=== PATIENT | male | born 1955 | race Caucasian/White ===

== ENCOUNTER 2021-07-24 09:45 | Outpatient (CLI) | payer MEDICARE, OTHER, SELFPAY ==
[2021-07-24 12:28] LABS: Erythrocyte Sedimentation Rate 10 mm/hr (0-20)
[2021-07-24 12:30] LABS: Absolute Lymphocyte Count 6.03 X10^3/uL (0.83-4.51); Basophil# 0.04 X10^3/uL; Basophil% 0.4 % (0-1); Eosinophil# 0.18 X10^3/uL; Eosinophils% 1.6 % (0-5); Hematocrit 45.6 % (40-54); Hemoglobin 15.8 g/dL (13.0-16.5); Lymphocyte # 6.03 X10^3/ul (0.83-4.51); Lymphocyte % 55.2 % (19-41); Mean Corp Hgb Conc 34.6 g/dL (32-36); Mean Corpuscular Hgb 32.8 pg (27.0-32.0); Mean Corpuscular Volume 94.8 fL (80-94); Mean Platelet Vol. 11.3 fl (6.2-12.0); Monocyte% 6.4 % (0-10); NRBC Flagged by Analyzer 0 % (0-5); Neutrophil # 3.95 X10^3/uL (2.7-7.7); Neutrophil % 36.1 % (47-70); POSITIVE DIFFERENTIAL YES; POSITIVE MORPHOLOGY YES; Platelet Count 176 K/mm3 (150-450); RBC Distribution Width CV 13.5 % (11.6-14.6); Red Blood Count 4.81 M/mm3 (4.6-6.2); White Blood Count 10.9 K/mm3 (4.4-11.0)
[2021-07-24 12:33] LABS: Differential Indicated SCAN CRITERIA MET
[2021-07-24 12:48] LABS: AST(SGOT) 22 U/L (15-37); Alanine Aminotransfer ALT/SGPT 41 U/L (16-61); Albumin, Serum 3.9 g/dL (3.2-5.0); Alkaline Phosphatase 83 U/L (45-117); Anion Gap 6 (5-15); BUN 18 mg/dL (7-18); BUN/Creat Ratio 15.4 RATIO (10-20); Calcium,Total 9.3 mg/dL (8.5-10.1); Chloride 109 mmol/L (98-107); Creatinine, Serum 1.17 mg/dL (0.70-1.30); EST Glomerular Filtration Rate 66 mL/min (>60); Est Glom Filt Rate - Afr Amer 80 mL/min (>60); Glucose 93 mg/dL (74-106); Magnesium 1.9 mg/dL (1.6-2.6); Potassium 3.8 mmol/L (3.5-5.1); Protein, Total 7.9 g/dL (6.4-8.2); Sodium Level 140 mmol/L (136-145)
== END 2021-07-24 23:59 | disposition home or self-care (01) ==
LOC: MFPLAB 09:50
PROVIDERS: PCP Family Medicine; Referring Provider Family Medicine; Visit Provider Family Medicine
DX: R79.89 Other specified abnormal findings of blood chemistry (principal); K51.90 Ulcerative colitis, unspecified, without complications
CPT/HCPCS: 36415; 80053; 83735; 84403; 85025; 85652

== ENCOUNTER 2021-08-30 08:00 | Outpatient (RCR) | payer MEDICARE, OTHER, SELFPAY ==
--- NOTE | 2021-07-31 14:24 | HP.PTEVAL_ITS ---
Patient's Visit Information DULCE DODSON is a 66 year old M referred to Physical Therapy by Dr. King Garnett MD with a diagnosis of R SHLD PAIN-BRACHIALIS AND SUBSCAP & R LATERAL FOOT PAIN (DISTAL ACHILLES). Date of Evaluation: 07/31/21 Physical Therapist: Shannan Jackson, PT, Cert MDT - Visit Plan Frequency: 2-3x /Week Duration: 4-6 Weeks Plan: RIGHT SHLD AND FOOT US. RIGHT SHLD AND ANKLE ROM, STRETCHING AND STRENGTHENING TO HELP MEET SET GOALS. HEP INSTRUCTION. - Subjective Work/Leisure: RETIRED. 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 Disability: NO. Present symptoms: RIGHT SHLD PAIN. RIGHT BICEPS TENDERNESS. NO NUMBNESS OR TINGLING. OCCASSIONAL RIGHT NECK PAIN. R PLANTAR LATERAL FOOT PAIN INTO HEEL AND ACHILLES. NO NUMBNESS OR TINGLING IN FOOT EITHER. Present since: SHLD - ABOUT 5 MONTHS AGO, RIGHT FOOT - 2 MONTHS AGO. Pain Scale: SHLD: Worst - 4/10 Least - 0/10, FOOT WORST 7/10, LEAST 0/10. Currently: SHLD: 05/07, R FOOT: 1/10. Commenced as a result of: R SHLD - POSSIBLY FROM HITTING HEAVY BAD WHEN STARTED BACK UP WITH KARATE. R FOOT PAIN - WALKING DOG, STARTED RUNNING AND BROUGHT FOOT DOWN HARD. Worse: MOVING SHLD CERTAIN WAYS, CERTAIN WAYS SLEEPING, RAISING R ARM OUT TO THE SIDE, ALSO DEMO'S ER OF R SHLD HURTING. FOOT - WEIGHT BEARING AFTER SITTING, WALKING - SOMETIMES ITS WORSE THAN OTHERS. Better: R SHLD - NO USING IT. FOOT - SUPPORT ARCHES IN SHOES, STRETCHING SEEMS TO HELP. Disturbed sleep: YES. Previous history/Previous treatment: UNREMARKABLE. Gait: SOMETIMES THE RIGHT FOOT PAIN GETS SO BAD HE CAN BARELY WALK. Accidents: NO. Unexplained weight loss: NO. Imaging: NO IMAGING OF FOOT OR SHLD. PMH/Recent major surgery: ENLARGED PROSTATE. ULCERATIVE COLITIS, C6 NERVE PERM. DAMGAGE. OTHER: PATIENT REPORTS HE HAS GYM EQUIPMENT AT HOME. - Objective THIS PATIENT AMBULATES INDEP'LY INTO PT WITH A MILD LIMP ON THE RIGHT LE. HE REPORTS HE IS HERE FOR HIS RIGHT SHLD PAIN AND HIS RIGHT FOOT PAIN. ENRIQUE UE AND RIGHT LE LIGHT TOUCH SENSATION IS GROSSLY INTACT. CERVICAL MVMT LOSS: FLEX - NIL, PRO - NIL, EXT - MOD, RETRACTION - DAMION, RIGHT ROT MIN, L ROT MIN, ENRIQUE SB - DAMION. PATIENT DENIES PAIN WITH CERVICAL ROM TESTING. AROM OF RIGHT SHLD IN SIT TING: FLEX AND ABD WFL BUT INCREASED PAIN WITH TESTING. SUPINE R SHLD ROM TESTING: FLEX 155 DEG, ABD 100 DEG, IR 65 DEG, ER 60 DEG (80 DEG ABD WITH IR/ER TESTING). PATIENT C/O RIGHT SHLD PAIN WITH SUPINE ROM TESTING ALL PLANES. 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 RIGHT ELBOW STRENGTH IS 5/5. R SHLD STRENGTH: FLEX 4/5, ABD 3-/5, IR 4/5, ER 3-/5. PATIENT HAS TENDERNESS WITH PALPATION OF THE RIGHT LATERAL BOARDER OF FOOT AND ACHILLES INSERTION. THERE IS NO PALPABLE EDEMA. RIGHT ANKLE ROM AND STRENGTH IS WFL. HE DEMO'S INCREASED LIMPING ON THE RIGHT LE INITIATING GAIT AFTER SITTING. HE DEMO'S APPROPRIATE RIGHT GASTROC, SOLEUS AND TOE EXTENSION STRETCHING AND HE REPORTS THIS HELPS. - Balance/Special Test Scores Lower Extremity Functional Score: 56 Quick DASH Score: 25.0000 - Goals Goal 1:: DECREASE C/O RIGHT SHLD PAIN TO EASE ADLS. Goal Time Frame: 4-6 Weeks Goal 2:: DECREASE C/O R FOOT PAIN TO EASE ADL'S Goal Time Frame: 4-6 Weeks Goal 3:: PATIENT WILL DEMONSTRATE IMPROVED RIGHT SHLD ROM TO RETURN TO PRIOR LEVEL OF FUNCTION Goal Time Frame: 4-6 Weeks Goal 4:: PATIENT WILL DEMONSTRATE IMPROVED R SHLD STRENGTH TO 5/5 TO EASE ADLS AND RETURN TO WEIGHT LIFTING. Goal Time Frame: 4-6 Weeks Goal 5:: PATIENT WILL BE INDEP WITH HEP'S FOR RIGHT SHLD AND RIGHT FOOT FOR CONTINUED IMPROVEMENT ONCE FORMAL PHYSICAL THERAPY CONCLUDES. Goal Time Frame: 4-6 Weeks - Anticipated Interventions Patient/Client Instruction: Educate patient on: Condition, Plan of Care, Risk Factors For the Purpose of:: To improve self management Therapeutic Exercise to Include: Strength training, Body mechanics, Postural training, Flexibilty training, Gait and locomotor training, Neuromotor development, Scapular Strength/Stabilization For the Purpose of:: To decrease pain, To increase ROM, To improve muscle performance and motor function, To improve ability to perform ADL's, To increase tolerance to activity/condition/position, To improve ability of physical actions for home/community/work/leisure, To improve gait and locomotor functions Cryotherapy (ice pack, ice massage): Yes Thermo therapy (hot pack): Yes Ultrasound (thermal/non thermal): Yes For the Purpose of:: To decrease pain, To improve nutrient delivery to tissue Thank you for the opportunity to evaluate your patient. For Medicare and Medicare HMO plans, please review the plan of care and approve it. It will need to be FAXED BACK to us at [phone] for Medicare purposes. For Medicare only, by signing this I certify the plan of care. Please let me know if there are questions or concerns regarding this plan of care. Physician Signature: Date:
--- NOTE | 2021-08-30 09:01 | HP.PTDCSUM_ITS ---
It has been my pleasure to treat DULCE DODSON referred by Dr. King Garnett MD, with the diagnosis of R SHLD PAIN-BRACHIALIS AND SUBSCAP & R LATERAL FOOT PAIN (DISTAL ACHILLES) for a total of 8 visit(s). Discharge Date: 08/30/21 Please see the following information for a summary of their discharge status. Subjective: PATIENT REPORTS HIS SHLD ROM IS BETTER AND IT HURTS LESS. I CAN TELL THE EX'S ARE HELPING. SHLD DOES STILL HURT THOUGH WITH CERTAIN MVMTS AND AT NIGHT. I DON'T SLEEP WELL. IT IS MUCH MUCH BETTER THOUGH NO QUESTION ABOUT IT. STILL DIFFICULT TO WALK ON FOOT AFTER SITTING BUT WITH TIME THE PAIN GOES AWAY. I'M VERY HAPPY WITH THE PROGRESS. PATIENT REPORTS HE HAS A COMPLETE HOME GYM AND HE CAN DO THE EX'S ON HIS OWN NOW. % Improvement: 65 Objective/Function: PATIENT WAS SEEN TODAY FOR RE-ASSESSMENT OF PROGRESS TOWARD THE SET PT GOALS AND THE NEED FOR FURTHER PHYSICAL THERAPY VS READINESS FOR DISCHARGE. HE HAS MADE GOOD PROGRESS TOWARD ALL GOALS FOR HIS RIGHT SHLD AND RIGHT FOOT. HE IS INDEP WITH A [facility] AND THE HOPE IS THAT HE WILL CONTINUE TO IMPROVE WITH TIME. HE IS STILL GETTING R SHLD IMPINGEMENT WITH OVER HEAD REACHING AND HE CONTINUES TO HAVE SIGNIFICANT R SHLD ER WEAKNESS. UPON EXAM TODAY: THIS PATIENT AMBULATES INDEP'LY INTO PT WITHOUT A LIMP ON THE RIGHT LE TODAY LIKE HE DID AT [facility]. ROM: SUPINE R SHLD ROM TESTING: FLEX [id number] DEG, ABD FULL, IR 65 DEG, ER 90 DEG (90 DEG ABD WITH IR/ER TESTING). PATIENT C/O RIGHT SHLD PAIN WITH SUPINE ROM TESTING ALL PLANES AT THE END OF THE AVAILABLE ROM BUT ROM HAS IMPROVED SIGNIFICANTLY INTO ABD AND ER. 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 ELBOW STRENGTH IS 5/5. R SHLD STRENGTH: FLEX 4/5, ABD 4-/5, IR 4/5, ER 3-/5. THERE IS NO PALPABLE EDEMA. HE DOES NOT DEMO INCREASED LIMPING ON THE RIGHT LE INITIATING GAIT AFTER SITTING TODAY AND HE REPORTS IT TAKES SITTING LONGER TO BRING ON THE LIMP TYPICALLY. FURTHER INSTRUCTION GIVEN TODAY IN PROPER POSTURE CONTROL. PATIENT IS APPROPRIATE FOR DISCHARGE TO [facility] AND FOLLOW UP WITH DR. GARNETT NEEDED. PATIENT IS AGREEABLE. Goal 1:: DECREASE C/O RIGHT SHLD PAIN TO EASE ADLS. Goal Progress: Goal Met Goal 2:: DECREASE C/O R FOOT PAIN TO EASE ADL'S Goal Progress: Goal Met Goal 3:: PATIENT WILL DEMONSTRATE IMPROVED RIGHT SHLD ROM TO RETURN TO PRIOR LEVEL OF FUNCTION Goal 4:: PATIENT WILL DEMONSTRATE IMPROVED R SHLD STRENGTH TO 5/5 TO EASE ADLS AND RETURN TO WEIGHT LIFTING. Goal Progress: Progressing Goal 5:: PATIENT WILL BE INDEP WITH HEP'S FOR RIGHT SHLD AND RIGHT FOOT FOR CONTINUED IMPROVEMENT ONCE FORMAL PHYSICAL THERAPY CONCLUDES. Goal Progress: Goal Met Plan: D/C TO HEP. If there are questions or concerns regarding this patient's physical therapy, please feel free to call me at [phone]. Thank you for the referral of this patient. Sincerely, Shannan Jackson, PT, Cert MDT Balance/Gait/Functional tests - Balance/Special Test Scores Lower Extremity Functional Score: 58 Quick DASH Score: 25.0000
== END 2021-08-30 09:27 | disposition home or self-care (01) ==
LOC: PT 08:00
PROVIDERS: PCP Family Medicine; Referring Provider Family Medicine; Visit Provider Family Medicine
DX: M25.511 Pain in right shoulder (principal); M79.671 Pain in right foot
CPT/HCPCS: 97035; 97110; 97162; 97164

== ENCOUNTER → 2021-09-21 | Outpatient (CLI) | payer MEDICARE, OTHER, SELFPAY ==
[2021-09-21 11:33] LABS: Absolute Lymphocyte Count 6.37 X10^3/uL (0.83-4.51); Absolute Neutrophil Count 3.3 X10^3/uL (2.0-7.7); Basophil# 0.04 X10^3/uL; Basophil% 0.4 % (0-1); Eosinophil# 0.15 X10^3/uL; Eosinophils% 1.4 % (0-5); Hematocrit 45.1 % (40-54); Hemoglobin 15.5 g/dL (13.0-16.5); Lymphocyte # 6.37 X10^3/ul (0.83-4.51); Mean Corp Hgb Conc 34.4 g/dL (32-36); Mean Corpuscular Hgb 32.6 pg (27.0-32.0); Mean Corpuscular Volume 94.9 fL (80-94); Mean Platelet Vol. 11.1 fl (6.2-12.0); Monocyte# 0.54 X10^3/uL; Monocyte% 5.2 % (0-10); NRBC Flagged by Analyzer 0 % (0-5); Neutrophil # 3.33 X10^3/uL (2.7-7.7); Neutrophil % 31.8 % (47-70); POSITIVE DIFFERENTIAL YES; POSITIVE MORPHOLOGY YES; Platelet Count 179 K/mm3 (150-450); RBC Distribution Width CV 13.4 % (11.6-14.6); RBC Distribution Width SD 47.6 fl (35.1-43.9); Red Blood Count 4.75 M/mm3 (4.6-6.2); White Blood Count 10.5 K/mm3 (4.4-11.0)
[2021-09-21 11:53] LABS: Differential Indicated SCAN CRITERIA MET
[2021-09-21 11:55] LABS: Erythrocyte Sedimentation Rate 11 mm/hr (0-20)
[2021-09-21 11:59] LABS: AST(SGOT) 18 U/L (15-37); Alanine Aminotransfer ALT/SGPT 30 U/L (16-61); Albumin, Serum 4.1 g/dL (3.2-5.0); Alkaline Phosphatase 87 U/L (45-117); Anion Gap 5 (5-15); BUN 14 mg/dL (7-18); BUN/Creat Ratio 12.4 RATIO (10-20); CRP < 2.90 mg/L (0.0-3.0); Calcium,Total 9.3 mg/dL (8.5-10.1); Chloride 111 mmol/L (98-107); Creatinine, Serum 1.13 mg/dL (0.70-1.30); EST Glomerular Filtration Rate 69 mL/min (>60); Est Glom Filt Rate - Afr Amer 83 mL/min (>60); Globulin 4.1 g/dL (2.2-4.2); Glucose 106 mg/dL (74-106); LDH 173 U/L (87-241); Protein, Total 8.2 g/dL (6.4-8.2); Sodium Level 141 mmol/L (136-145)
[2021-09-21 13:22] LABS: Smudge Cells 1+
[2021-09-25 11:45] LABS: Pathologist Review Reviewed
[2021-09-25 15:08] LABS: Anti-Centromere B Ab <0.2 AI (0.0-0.9); Anti-Chromatin <0.2 AI (0.0-0.9); Anti-Jo <0.2 AI (0.0-0.9); Anti-Scleroderma-70 AB <0.2 AI (0.0-0.9); RNP Ab 0.2 AI (0.0-0.9); SJOGREN'S Anti-SS-A test < 0.2 AI (0.0-0.9); SJOGREN'S Anti-SS-B test < 0.2 AI (0.0-0.9); Smith Ab <0.2 AI (0.0-0.9)
[2021-09-25 16:08] LABS: Endomysial Antibody IgA Negative (Negative)
[2021-09-26 09:25] LABS: Immunoglobulin A 322 mg/dL (61-437); t-Transglutaminase IgA <2 U/mL (0-3)
[2021-09-26 11:04] LABS: Anti-dsDNA Ab 3 IU/mL (0-9)
[2021-09-29 01:07] LABS: Albumin 3.9 g/dL (2.9-4.4); Alpha-1-Globulins 0.2 g/dL (0.0-0.4); Alpha-2-Globulins 0.7 g/dL (0.4-1.0); Cytoplasmic Ab (C-ANCA) <1:20 titer (Neg:<1:20); Gamma Globulin 1.5 g/dL (0.4-1.8); Immunoglobulin A 314 mg/dL (61-437); Immunoglobulin E 12 IU/mL (6-495); Immunoglobulin G 1450 mg/dL (603-1613); Immunoglobulin M 78 mg/dL (20-172); PROEL- TOTAL PROTEIN 7.5 g/dL (6.0-8.5)
[2021-09-29 07:34] LABS: Perinuclear Ab (P-ANCA) <1:20 titer (Neg:<1:20)
== END | disposition home or self-care (01) ==
PROVIDERS: PCP Family Medicine; Referring Provider Internal Medicine Gastroenterology; Visit Provider Internal Medicine Gastroenterology
DX: R19.7 Diarrhea, unspecified (principal); K51.90 Ulcerative colitis, unspecified, without complications
CPT/HCPCS: 36415; 80053; 82784; 82785; 83516; 83615; 84165; 85025; 85652; 86140; 86225; 86235; 86255; 86256; 86334

== ENCOUNTER → 2021-12-17 | Outpatient (CLI) | payer MEDICARE, OTHER, SELFPAY ==
[2021-12-17 09:59] LABS: Absolute Lymphocyte Count 6.66 X10^3/uL (0.83-4.51); Absolute Neutrophil Count 3.9 X10^3/uL (2.0-7.7); Basophil# 0.06 X10^3/uL; Basophil% 0.5 % (0-1); Eosinophil# 0.28 X10^3/uL; Eosinophils% 2.4 % (0-5); Hematocrit 44.9 % (40-54); Hemoglobin 15.4 g/dL (13.0-16.5); Lymphocyte # 6.66 X10^3/ul (0.83-4.51); Lymphocyte % 57.4 % (19-41); Mean Corp Hgb Conc 34.3 g/dL (32-36); Mean Corpuscular Volume 93.2 fL (80-94); Mean Platelet Vol. 10.9 fl (6.2-12.0); Monocyte# 0.69 X10^3/uL; Monocyte% 5.9 % (0-10); NRBC Flagged by Analyzer 0 % (0-5); Neutrophil # 3.88 X10^3/uL (2.7-7.7); Neutrophil % 33.5 % (47-70); POSITIVE DIFFERENTIAL YES; Platelet Count 161 K/mm3 (150-450); RBC Distribution Width CV 13.2 % (11.6-14.6); RBC Distribution Width SD 44.7 fl (35.1-43.9); Red Blood Count 4.82 M/mm3 (4.6-6.2); White Blood Count 11.6 K/mm3 (4.4-11.0)
[2021-12-17 10:05] LABS: Differential Indicated SCAN CRITERIA MET
[2021-12-17 10:21] LABS: ALB/GLOB Ratio 0.9 RATIO (0.9-2.4); AST(SGOT) 21 U/L (15-37); Alanine Aminotransfer ALT/SGPT 32 U/L (16-61); Albumin, Serum 3.5 g/dL (3.2-5.0); Alkaline Phosphatase 78 U/L (45-117); Anion Gap 6 (5-15); BUN 18 mg/dL (7-18); BUN/Creat Ratio 17.8 RATIO (10-20); Calcium,Total 8.9 mg/dL (8.5-10.1); Chloride 110 mmol/L (98-107); Creatinine, Serum 1.01 mg/dL (0.70-1.30); EST Glomerular Filtration Rate 78 mL/min (>60); Est Glom Filt Rate - Afr Amer 95 mL/min (>60); Glucose 94 mg/dL (74-106); LDH 142 U/L (87-241); Potassium 4.1 mmol/L (3.5-5.1); Protein, Total 7.5 g/dL (6.4-8.2); Sodium Level 140 mmol/L (136-145); Uric Acid 5.6 mg/dL (3.5-7.2)
[2021-12-17 10:26] LABS: Smudge Cells RARE
== END | disposition home or self-care (01) ==
PROVIDERS: PCP Family Medicine; Visit Provider Internal Medicine Medical Oncology
DX: D72.820 Lymphocytosis (symptomatic) (principal); K51.90 Ulcerative colitis, unspecified, without complications; R79.89 Other specified abnormal findings of blood chemistry
CPT/HCPCS: 36415; 80053; 83615; 84550; 85025

== ENCOUNTER 2021-12-27 05:55 | Day surgery (SDC) | payer MEDICARE, OTHER, SELFPAY ==
[2021-12-27] VITALS (7 sets, daily range): BP systolic 91–112; BP diastolic 63–75; PULSE 54–95; RESP 16–28; TEMP 36.3–36.8; O2SAT 93–98; BMI 27.3
--- NOTE | 2021-12-27 | COLBX_PTH ---
PATIENT: DULCE DODSON LOC: EN U#:[id number] AGE/SX: 66/M ROOM: RE12/27/[address]: Dr. Mayo Boston DO : 1955 BED: DIS: 12/27/2021 SPEC #: [id number] RECD: 12/27/21 11:16 STATUS: CAIO ZAHRA #: [id number] NADINE: 12/27/21 00:[address]: Mayo Boston DEPT: SURGICAL PATHOLOGY RECD BY: Abraham Reynolds ENTERED: 12/27/21 11:17 SP TYPE: COLON BX QAMAR DR: Dr. King Garnett MD Tissues: A - COLON BIOPSY B - COLON BIOPSY C - Rectum, NOS Procedures: Surgery Specimen Level IV HEADER OPERATION: Colonoscopy (MAC) with biopsy PRE-OP DIAGNOSIS: Diarrhea, ulcerative colitis TISSUE SUBMITTED: A ? Terminal ileum biopsy, B ? Random colonic biopsy, C ? Rectum biopsy MICROSCOPIC DIAGNOSIS A. Terminal ileum, biopsy: No pathologic change. B. Colon, random biopsy: No significant pathologic change. See comment. C. Rectum, biopsy: No pathologic change. AM:ivelisse 12/28/2021 COMMENT B. Eosinophils are focally increased in the mucosa. The significance of this is unclear. Clinical correlation is suggested. MICROSCOPIC DESCRIPTION Slides are reviewed. GROSS DESCRIPTION A - Received in fixative is one container labeled with the patient's name and designated terminal ileum biopsy. The specimen consists of one irregular fragment of light obrien soft tissue that measures 0.4 x 0.3 x 0.1 cm. The specimen is totally submitted in one cassette. B - Received in fixative is one container labeled with the patient's name and designated random colonic biopsy. The specimen consists of multiple irregular fragments of light obrien soft tissue that in aggregate measure 2.5 x 0.5 x 0.1 cm. The specimen is totally submitted in one cassette. C - Received in fixative is one container labeled with the patient's name and designated rectum biopsy. The specimen consists of multiple irregular fragments of light obrien soft tissue that in aggregate measure 1 x 0.3 x 0.1 cm. The specimen is totally submitted in one cassette. / ILA:ivelisse 12/27/2021 TC:5 CPT: 58151 x3
--- NOTE | 2021-12-27 06:35 | HP.PCM_ITS ---
History and Physical Date of Admission: 12/27/21 DULCE DODSON, is a 66 M who presents to the office today for Dulce established with this clinic 09.21.21. Dulce recently moved to the area in January 2021. He would like to establish for Ulcerative colitis diagnosed around 2016. All his life he has had symptoms of diarrhea and general feeling of unwell. Feels that he is very susceptible to antibiotic use. Following dentist treatment with antibiotics he then had C.Difficile with two treatments on two occasions, each occurrence requiring hospitalization. Colonoscopy performed during first occurrence diagnosing UC. His most recent Colonoscopy about two or less years ago did not find any active colitis signs were resolved and he is not currently on medications. He gets flares for about a week with symptoms of variable consistency of BM with minimal pain; he pays close attention to his diet for the duration and they self-resolve. Flares occur as a results of diet choices or increased stress; feels they occur every 1-2 months. Prostate prostate aortal embolism with beads placed into prostate to kill a portion performed 2020. ROS Const Constitutional: No fatigue, malaise, night sweats, weight change, sleep problems, abnormal sleep pattern or change in appetite ENT ENT: No difficulty swallowing, hoarseness or sore throat Cardio Cardiology: No chest pain at rest Gastro GI: No abdominal pain, belching, bloating, change in bowel habits, change in stool character, coffee ground emesis, constipation, cramping, diarrhea, heartburn, difficulty swallowing, feeling full early, excessive flatus, incontinent of stools, Vomiting blood/hematemesis, Blood in stool, loose stools, Black,tarry stools, nausea/dyspepsia, pain with swallowing, vomiting or other Musc Musculoskeletal: No joint pain Skin Skin: No yellowing of the eye or itchy eyes Neuro Neurology: No behavioral changes Psych Psychiatric: No abnormal sleep pattern, No anxiety, No behavioral changes, No change in appetite and No depression Endo Endocrine: No fatigue or weight change Aller/Imm Allergy/Immunologic: No itchy eyes Marquis/Lymp Hematologic/Lymphatic: No easy bleeding or easy bruising Exam Const General: cooperative and comfortable Nutritional Appearance: average body habitus and well nourished HENMT Head: normal to inspection Ears: hearing grossly normal bilaterally Nose: external nose normal Face and sinus: normal facial exam Mouth: oral mucosae normal Throat: posterior oropharynx normal Eyes General: appearance normal, both eyes and all related structures Neck Neck: normal visual inspection Chest Chest palpation & inspection: normal inspection of the chest and normal palpation of entire chest wall Resp Effort & Inspection: normal respiratory effort Auscultation: Bilateral: Clear to Auscultation Cardio Palpation: normal PMI Rate: regular rate Rhythm: regular rhythm GI Inspection: normal to inspection Auscultation: normal bowel sounds Percussion: normal to percussion Palpation: no hepatosplenomegaly Skin General: no rashes or lesions noted Neuro General: patient alert Extrem General: normal to inspection Psych Affect: normal affect Assessment and Plan Assessment and Plan (1) Diarrhea: ?Status:?Acute ? ? ? Orders:?Orders: ? Comprehensive Metabolic Profil Today ? ? ? CRP Today ? ? ? LDH Today ? ? ? CBC W/Diff, Automated Today ? ? ? Erythrocyte Sed Rate Today ? ? ? KELLY Comprehensive Panel Today ? ? ? Calprotectin, Stool Today ? ? ? Ova and Parasites 8623 Today ? ? ? CDIFF (PCR) Today ? ? ? ENTERIC PATHOGEN PANEL STOOL Today ? ? ? Stool Lactoferrin/WBC Today ? ? ? ANCA Today ? ? ? Celiac Disease Profile Today ? ? ? Immunoglobulins G/A/M/E Today ? ? ? Giardia Lamblia, Stool EIA Today ? ? ? ARSH + Protein Elect, Serum Today ?Plan - Dr. Huber Friend, DO: We will check stool studies as well as a fecal lactoferrin.? We will also check immunoglobulins.? With his history of C. difficile x2 requiring 2 hospitalizations I would like to make sure he has no fecal leukocytes present and there is no other possible etiology to his episodes of diarrhea.? I would not check him for C. difficile at this time and that he does not have any diarrhea.? I recommend that he does get a colonoscopy with biopsies throughout his colon. (2) Ulcerative colitis: ?Status:?Acute ? ? ? Orders:?Orders: ? Comprehensive Metabolic Profil TodayA ? ? ? CRP Today ? ? ? LDH Today ? ? ? CBC W/Diff, Automated Today ? ? ? Erythrocyte Sed Rate Today ? ? ? KELLY Comprehensive Panel Today ? ? ? Calprotectin, Stool Today ? ? ? Ova and Parasites 8623 Today ? ? ? CDIFF (PCR) Today ? ? ? ENTERIC PATHOGEN PANEL STOOL Today ? ? ? Stool Lactoferrin/WBC Today ? ? ? ANCA Today ? ? ? Celiac Disease Profile Today ? ? ? Immunoglobulins G/A/M/E Today ? ? ? Giardia Lamblia, Stool EIA Today ? ? ? ARSH + Protein Elect, Serum Today ?Plan - Dr. Huber Friend, DO: Right now he says that he is in remission previous work-up including colonoscopy report and biopsies and blood work.? He had biochemical testing including ESR, CRP, KELLY, ANCA and antibody testing for inflammatory bowel disease.? He was okay with this plan. I have re-examined the patient. There are no clinical changes since date of exam.
[2021-12-27] MEDS: Lactated Ringers 1,000 ML 15 ML IV (06:39)
--- NOTE | 2021-12-27 07:29 | OP.COLON_ITS ---
Patient Name: Gerald Mahmood Procedure Date: 12/27/2021 7:01 AM Date of : 1955 Age: 66 Procedure: Colonoscopy Indications: Left-sided chronic ulcerative colitis Providers: Mayo Boston DO Medicines: Monitored Anesthesia Care Patient Profile: This is a 66 year old male. Refer to note in patient chart for documentation of history and physical. Last Colonoscopy: 3 years ago. Complications: No immediate complications. Procedure: Pre-Anesthesia Assessment: - Prior to the procedure, a History and Physical was performed, and patient medications and allergies were reviewed. The patient is competent. The risks and benefits of the procedure and the sedation options and risks were discussed with the patient. All questions were answered and informed consent was obtained. Patient identification and proposed procedure were verified by the physician in the pre-procedure area. Mental Status Examination: alert and oriented. Airway Examination: normal oropharyngeal airway and neck mobility. Respiratory Examination: clear to auscultation. CV Examination: normal. Prophylactic Antibiotics: The patient does not require prophylactic antibiotics. Prior Anticoagulants: The patient has taken no previous anticoagulant or antiplatelet agents. ASA Grade Assessment: II - A patient with mild systemic disease. After reviewing the risks and benefits, the patient was deemed in satisfactory condition to undergo the procedure. The anesthesia plan was to use moderate sedation / analgesia (conscious sedation). Immediately prior to administration of medications, the patient was re-assessed for adequacy to receive sedatives. The heart rate, respiratory rate, oxygen saturations, blood pressure, adequacy of pulmonary ventilation, and response to care were monitored throughout the procedure. The physical status of the patient was re-assessed after the procedure. After I obtained informed consent, the scope was passed under direct vision. Throughout the procedure, the patient's blood pressure, pulse, and oxygen saturations were monitored continuously. The colonoscope was introduced through the anus and advanced to the cecum, identified by appendiceal orifice and ileocecal valve. The colonoscopy was performed without difficulty. The patient tolerated the procedure well. The quality of the bowel preparation was good. Scope In: 7:13:27 AM Scope Withdrawal Time 0 hours 9 minutes 21 seconds Scope Out: 7:25:02 AM Total Procedure Duration Time 0 hours 11 minutes 35 seconds Findings: The perianal and digital rectal examinations were normal. The colon (entire examined portion) appeared normal. Biopsies were taken with a cold forceps for histology. Verification of patient identification for the specimen was done. Estimated blood loss was minimal. The terminal ileum appeared normal. Biopsies were taken with a cold forceps for histology. Verification of patient identification for the specimen was done. Estimated blood loss was minimal. Impression: - The entire examined colon is normal. Biopsied. - The examined portion of the ileum was normal. Biopsied. Recommendation: - Discharge patient to home. - Resume previous diet. - Continue present medications. - Await pathology results. - Repeat colonoscopy in 2 years for surveillance based on pathology results. Procedure Code(s): --- Professional --- 76321, Colonoscopy, flexible; with biopsy, single or multiple CPT copyright 2017 [employer]. All rights reserved. The codes documented in this report are preliminary and upon hand sewer review may be revised to meet current compliance requirements. Mayo Boston DO 12/27/2021 7:29:21 AM This report has been signed electronically. Number of Addenda: 1 Note Initiated On: 12/27/2021 7:01 AM Addendum Number: 1 Addendum Date: 02/01/2022 6:16:18 AM MAC was used as sedation for this procedure. Mayo Boston DO 02/01/2022 6:16:22 AM This report has been signed electronically.
--- NOTE | 2021-12-27 07:30 | OP.CCLET_ITS ---
02/01/2022 King Garnett [address] [place] [address] Re : Colonoscopy procedure for Gerald Mahmood Dear Dr. Garnett This procedure was performed on December. My impressions and recommendations are as follows: Impressions : - The entire examined colon is normal. Biopsied. - The examined portion of the ileum was normal. Biopsied. Recommendations : - Discharge patient to home. - Resume previous diet. - Continue present medications. - Await pathology results. - Repeat colonoscopy in 2 years for surveillance based on pathology results. My findings are described in the full procedure note, which is enclosed. If I can be of further assistance, please feel free to contact me at . Sincerely, Mayo Boston, 12/27/2021 7:29:21 AM This report has been signed electronically.
--- NOTE | 2021-12-27 08:12 | SUR.PHASEII ---
Upon arrival to Phase II, pt's verbally upset regarding info given to her by Dr Boston. States she has more questions. Volume of her voice overriding RN attempting to give further info to clarify procedure to help remedy the situation. Pt's declines further conversation with nathalie or . Pt's making accusations regarding Friend's motives and staff caring for her . She slams the door upon this RN exiting. After about 5 minutes, upon arriving back to room, this RN once again offers pt and his an opportunity to converse with Nathalie or Friend. pt's states she saw Friend in the haq and has her questions answered. They deny further needs. The request to walk out. Pt gait upright and steady. This RN accompanies them to exit of unit.
== END 2021-12-27 08:15 | disposition home or self-care (01) ==
LOC: EN 05:56 → AC 05:57
PROVIDERS: PCP Family Medicine; Referring Provider Family Medicine; Visit Provider Internal Medicine Gastroenterology
PROC: 0DJD8ZZ Inspection of Lower Intestinal Tract, Via Natural or Artificial Opening Endoscopic (ICD-10-PCS; CPT 45378; principal; 2021-12-27 06:55)
DX: K51.90 Ulcerative colitis, unspecified, without complications (principal); R19.7 Diarrhea, unspecified; R06.6 Hiccough; K29.70 Gastritis, unspecified, without bleeding; Z80.0 Family history of malignant neoplasm of digestive organs
CPT/HCPCS: 45380; 71045; 71275; 74174; 80053; 84484; 85025; 88305; 93005; 99285; J7030; J7120; Q9967; A4216; J2405

== ENCOUNTER 2021-12-27 18:14 | Emergency (ER) | payer MEDICARE, OTHER, SELFPAY ==
[2021-12-27 18:16] VITALS: BP 136/77; PULSE 71; RESP 22; TEMP 36.5; O2SAT 100; BMI 28.0
[2021-12-27 18:23] VITALS: BP 140/71; PULSE 55; RESP 98; O2SAT 16
--- NOTE | 2021-12-27 18:28 | EKG12_ITS ---
Test Reason : DYSRHYTHMIA Blood Pressure : / mmHG Vent. Rate : 087 BPM Atrial Rate : 087 BPM P-R Int : 206 ms QRS Dur : 084 ms QT Int : 370 ms P-R-T Axes : 050 038 008 degrees QTc Int : 445 ms Normal sinus rhythm Normal ECG Confirmed by KIRILL WILLIAMSON, CASSIE ([id number]), magazine editor NEAL SOLORIO ([id number]) on 12/28/2021 2:14:29 PM Referred By: PL Confirmed By:TIMMY ROY MD
--- NOTE | 2021-12-27 18:30 | EDS_ITS ---
HPI History of Present Illness Chief Complaint: Abd Pain Informant: patient Narrative Narrative: Patient presents with hiccups. I have very limited history. He states he needs to get something for these. The below history is the only history that I can obtain from him at this time. Patient states he has had hiccups off and on for years. He has a bad episode about every year. He has mild ones more frequently. It is usually associated with swallowing foods. But I cannot get from him what he was eating, when he last ate or if he feels as though something is stuck. He has pain when he has the heck up and he points to the epigastric area. But he does not have pain between the hiccups. He denies chest and back pain. He denies syncope or presyncope. He felt fine until these happen. [facility] Medical History Arthritis C. difficile colitis Difficulty swallowing History of leukemia History of ulceration Non-smoker Prostate disease Shortness of breath on exertion Wears glasses Home Medications fexofenadine 60 mg tablet (Maria Luz Allergy) 60 mg PO DAILY 10/22/21 [History Last Taken Unknown] lactobacillus combination no.9 4 billion cell capsule (Adult 50 Plus Probiotic) 4,000 mmu cells PO DAILY 10/22/21 [History Last Taken Unknown] magnesium glycinate 500 mg PO DAILY 10/22/21 [History Last Taken Unknown] tadalafil 5 mg tablet 5 mg PO QHS 10/22/21 [History Last Taken Unknown] terazosin 10 mg capsule 10 cap PO QHS 10/22/21 [History Last Taken Unknown] tumeric 100 mg-cody 150 mg-olive 50 mg-oreg 150 mg-caprylate capsule 1 cap PO DAILY 10/22/21 [History Last Taken Unknown] zinc gluconate-zinc picolinate 30 mg capsule 50 mg PO DAILY 10/22/21 [History Last Taken Unknown] cholecalciferol (vitamin D3) 25 mcg (1,000 unit) tablet (Vitamin D3) 25 mcg PO DAILY 12/21/21 [History Last Taken Unknown] vitamin B complex 1 cap PO DAILY 12/21/21 [History Last Taken Unknown] Allergy/AdvReac Type Severity Reaction Status Date / Time amoxicillin [From Augmentin] AdvReac Vomiting Verified 09/01/22 18:21 clavulanic acid AdvReac Vomiting Verified 12/27/21 18:21 [From Augmentin] Family History Father Colon cancer Surgical History Hx of colonoscopy Hx of esophagogastroduodenoscopy Hx of prostate biopsy Social History Smoking Status: Never smoker alcohol intake: former ROS ROS ED ROS Narrative HimMost questions the patient does not want to answer at this time. He needs something for his hiccups before he can answer most questions. We will get him something as he is uncomfortable. We will then see if we can get further history. Constitutional Constitutional ED: Denies sweats Cardiovascular Cardiovascular: Denies chest pain or palpitations Respiratory/Chest Respiratory/Chest: Denies dyspnea Gastrointestinal Gastrointestinal: Reports other Details: See history of present illness peer Musculoskeletal Musculoskeletal: Denies back pain EXAM Physical Exam Const Vital Signs: 12/27/21 18:16 12/27/21 18:23 12/27/21 19:23 Temperature 97.7 F L Temperature Source Temporal Pulse Rate 71 55 L 57 L Respiratory Rate 22 H 98 H 8 L Blood Pressure 136/77 H 140/71 H 136/82 H Blood Pressure Mean 96 94 100 Pulse Ox 100 16 92 Oxygen Delivery Method Room Air Room Air Room Air 12/27/21 20:00 12/27/21 21:00 Temperature Temperature Source Pulse Rate 75 71 Respiratory Rate 16 12 Blood Pressure 122/76 H 132/75 H Blood Pressure Mean 91 94 Pulse Ox 94 95 Oxygen Delivery Method Room Air Room Air Positive well nourished and well developed Constitutional Narrative: Patient looks uncomfortable. He rolls back and forth. But he states he only has pain with the hiccups. General Appearance ED: well developed HEENT Reports moist mucous membranes HEENT Narrative: Voice is normal. No difficulty swallowing secretions. Eyes EOMs intact bilaterally Neck supple and no JVD Neck Narrative: No stridor. Chest Wall inspection of chest normal and palpation of chest normal Chest Narrative: No chest wall tenderness. No subcutaneous air. Cardio regular rate GI normal to inspection, nondistended, normoactive bowel sounds and non-tender Back/Spine no CVA tenderness Extremity normal to inspection Skin no rashes or lesions noted MDM MDM MDM Narrative Medical decision making narrative: Patient's labs that show mild elevation of the white count. This could be demargination. Hemoglobin platelets are normal. Electrolytes did show mild bump in his creatinine. He was given IV fluids. Glucose was 128. LFTs were normal. After and left the room initially, he vomited brought up a little bit of material and felt markedly better. We were going to recheck him. We are considering discharge since his symptoms have completely resolved and he had this before. He then started to get the symptoms again. At this point we did do CTA of chest abdomen pelvis to rule out significant pathology. Hiccups have been associated with dissection pulmonary embolus and tumors/masses. Happily none of these findings were seen. His symptoms have completely resolved. He stayed asymptomatic for a while. He states he has had these for years. His last scope was 3 years ago. He would like to go home now. He does have a business risk analyst that he sees for his ulcerative colitis and he can follow-up with. CT showed some mild gastritis. But his symptoms are resolved. Lab Data Attestation: I reviewed the patient's lab results. Labs: Laboratory Results - last 24 hr 12/27/21 12/27/21 18:45 18:45 WBC 14.1 H RBC 4.76 Hgb 15.1 Hct 44.3 MCV 93.1 MCH 31.7 MCHC 34.1 RDW Std Deviation 45.4 H RDW Coeff of Anastacia 13.2 Plt Count 185 MPV 10.7 Immature Gran % (Auto) 0.300 Neut % (Auto) 41.2 L Lymph % (Auto) 49.5 H Nuckolls % (Auto) 6.9 Eos % (Auto) 1.8 Baso % (Auto) 0.3 Absolute Neuts (auto) 5.8 Absolute Lymphs (auto) 6.99 H Nucleated RBC % 0 Differential Comment SEE COMMENT Atypical Lymphocytes 1+ Platelet Estimate ADEQUATE RBC Morphology N CHROM Anisocytosis RARE Macrocytosis RARE Sodium 139 Potassium 3.7 Chloride 108 H Carbon Dioxide 21.0 Anion Gap 10 BUN 19 H Creatinine 1.41 H Estim Creat Clear Calc 56.56 Est GFR (MDRD) Af Amer 65 Est GFR (MDRD) Non-Af 53 L BUN/Creatinine Ratio 13.5 Glucose 128 H Calcium 9.5 Total Bilirubin 0.80 AST 17 ALT 33 Alkaline Phosphatase 80 Troponin I High Sens 5 Total Protein 7.8 Albumin 3.8 Globulin 4.0 Albumin/Globulin Ratio 1.0 Radiography Diagnostic Testing: Clinical Impression(s) from Imaging Studies Chest X-Ray 12/27/21 18:57 IMPRESSION: There are no acute findings. Electronically Signed: Augusto Davison MD at 19:15 EDT , Chest/Abdomen/Pelvis CTA 12/27/21 19:42 IMPRESSION: 1. No demonstrated pulmonary embolism or arterial dissection. 2. Focal wall thickening of the antrum of stomach. This can suggest a gastritis. 3. Enlarged prostate gland. 4. There is liquid stool in the colon. This can suggest a gastroenteritis /diarrhea. Clinical correlation is recommended. Electronically Signed: Augusto Davison MD at 20:28 EDT , Discharge Plan Triage Chief Complaint: Abd Pain ED Provider: Malcolm Butler Dx/Rx/DC Orders Clinical Impression: Hiccups Instructions: ED Hiccups Prescriptions: No Action terazosin 10 mg capsule 10 cap PO QHS tadalafil 5 mg tablet 5 mg PO QHS Adult 50 Plus Probiotic 4 billion cell capsule 4,000 mmu cells PO DAILY Rx Instructions: administer with a meal otrmaph-upxc-jgdfk-oreg-capryl 100 mg-150 mg- 50 mg-150 mg capsule 1 cap PO DAILY fexofenadine [Maria Luz Allergy] 60 mg tablet 60 mg PO DAILY zinc gluconate-zinc picolinate 30 mg capsule 50 mg PO DAILY magnesium glycinate 100 mg magnesium capsule 500 mg PO DAILY vitamin B complex Capsule 1 cap PO DAILY cholecalciferol (vitamin D3) [Vitamin D3] 25 mcg (1,000 unit) Tablet 25 mcg PO DAILY Primary Care Provider: King Garnett Referrals: King Garnett MD [Primary Care Provider] - 3-5 Days Disposition Disposition: Home, Self Care
[2021-12-27] MEDS: ChlorproMAZINE 50 MG/2 ML Ampul 25 MG IM (18:40)
[2021-12-27] MEDS: Morphine 4 MG/ML Syringe IV (18:42)
[2021-12-27] MEDS: 0.9% Normal Saline 1,000 ML 1000 ML IV (18:44)
[2021-12-27 18:57] LABS: Absolute Lymphocyte Count 6.99 X10^3/uL (0.83-4.51); Absolute Neutrophil Count 5.8 X10^3/uL (2.0-7.7); Basophil# 0.04 X10^3/uL; Basophil% 0.3 % (0-1); Eosinophil# 0.26 X10^3/uL; Eosinophils% 1.8 % (0-5); Hematocrit 44.3 % (40-54); Hemoglobin 15.1 g/dL (13.0-16.5); Lymphocyte # 6.99 X10^3/ul (0.83-4.51); Lymphocyte % 49.5 % (19-41); Mean Corp Hgb Conc 34.1 g/dL (32-36); Mean Corpuscular Hgb 31.7 pg (27.0-32.0); Mean Corpuscular Volume 93.1 fL (80-94); Mean Platelet Vol. 10.7 fl (6.2-12.0); Monocyte# 0.97 X10^3/uL; Monocyte% 6.9 % (0-10); NRBC Flagged by Analyzer 0 % (0-5); Neutrophil # 5.81 X10^3/uL (2.7-7.7); Neutrophil % 41.2 % (47-70); POSITIVE DIFFERENTIAL YES; POSITIVE MORPHOLOGY YES; Platelet Count 185 K/mm3 (150-450); RBC Distribution Width CV 13.2 % (11.6-14.6); RBC Distribution Width SD 45.4 fl (35.1-43.9); Red Blood Count 4.76 M/mm3 (4.6-6.2); White Blood Count 14.1 K/mm3 (4.4-11.0)
--- NOTE | 2021-12-27 18:57 | RAD_ITS ---
STUDY: XR Chest 1 View 12/27/2021 6:55 PM REASON FOR EXAM: Male, 66 years old. CHEST PAIN hiccups COMPARISON: None TECHNIQUE: XR Chest 1 View FINDINGS: There is no demonstrated pleural abnormality. Normal heart size. Normal mediastinum. Normal deedee. Prominent appearing increased interstitial lung markings. Normal visualized pulmonary arteries. There is atherosclerotic calcification of the aortic arch with tortuosity. There are diffuse degenerative changes of the visualized thoracic spine. There is degenerative osteoarthritis of the bilateral shoulders. There is no demonstrated abnormality of the visualized soft tissue structures of the upper abdomen. RAD/Chest 1 View (Portable) IMPRESSION: There are no acute findings. Electronically Signed: uAgusto Davison MD at 19:15 EDT ,
[2021-12-27 19:01] LABS: Differential Indicated SCAN CRITERIA MET
[2021-12-27 19:23] VITALS: BP 136/82; PULSE 57; RESP 8; O2SAT 92
[2021-12-27 19:27] LABS: AST(SGOT) 17 U/L (15-37); Alanine Aminotransfer ALT/SGPT 33 U/L (16-61); Albumin, Serum 3.8 g/dL (3.2-5.0); Alkaline Phosphatase 80 U/L (45-117); Anion Gap 10 (5-15); BUN 19 mg/dL (7-18); BUN/Creat Ratio 13.5 RATIO (10-20); Calcium,Total 9.5 mg/dL (8.5-10.1); Chloride 108 mmol/L (98-107); Creatinine, Serum 1.41 mg/dL (0.70-1.30); EST Glomerular Filtration Rate 53 mL/min (>60); Est Glom Filt Rate - Afr Amer 65 mL/min (>60); Estimated Creatinine Clearance 56.56 ml/min; Glucose 128 mg/dL (74-106); Potassium 3.7 mmol/L (3.5-5.1); Protein, Total 7.8 g/dL (6.4-8.2); Sodium Level 139 mmol/L (136-145); Troponin-I HS 5 pg/mL (3.0-78.0)
--- NOTE | 2021-12-27 19:42 | CT_ITS ---
EXAM: CT ANGIOGRAPHY CHEST, ABDOMEN AND PELVIS WITH INTRAVENOUS CONTRAST CLINICAL INDICATION: chest pain TECHNIQUE: Helically acquired angiography images were obtained of the chest, abdomen and pelvis with intravenous contrast. This CT exam was performed using one or more of the following dose reduction techniques: automated exposure control, adjustment of the mA and/or kV according to patient size, and/or use of iterative reconstruction technique. This report was created using [employer] report generation technology. MIP reconstructed images were created and reviewed. CONTRAST: IV 100mL Isovue-370 RADIATION DOSE: CTDIvol = 17.51 mGy, DLP = 1975.45 mGy-cm COMPARISON: None. FINDINGS: VASCULATURE: AORTA: No acute findings. Normal in caliber. No dissection. PULMONARY ARTERIES: No demonstrated pulmonary embolism or arterial dissection. GREAT VESSELS OF AORTIC ARCH: Unremarkable. Normal in caliber. No dissection. CELIAC TRUNK AND MESENTERIC ARTERIES: No acute findings. No occlusion or significant stenosis. No dissection. RENAL ARTERIES: No acute findings. No occlusion or significant stenosis. No dissection. ILIAC ARTERIES: No acute findings. No occlusion or significant stenosis. No dissection. CHEST: LUNGS AND PLEURAL SPACES: Unremarkable. No mass. No consolidation or edema. No pleural effusion or thickening. No pneumothorax. HEART: Unremarkable. Heart size is normal. No pericardial effusion. MEDIASTINUM: Unremarkable. No mediastinal or hilar adenopathy. Esophagus is unremarkable. No hiatal hernia. THYROID: Unremarkable. No thyroid lesions. ABDOMEN: LIVER: Unremarkable. Homogeneous. No focal mass. GALLBLADDER AND BILE DUCTS: Unremarkable. No calcified gallstones. No gallbladder distention or wall edema. No intra- or extrahepatic biliary ductal dilation. PANCREAS: Unremarkable. No focal cystic or solid mass. SPLEEN: Unremarkable. Normal size without focal cystic or solid mass. ADRENALS: Unremarkable. No nodules. KIDNEYS AND URETERS: Bilateral parapelvic cysts. No hydronephrosis. STOMACH AND BOWEL: Focal wall thickening of the antrum of stomach. This can suggest a gastritis. There is liquid stool in the colon. This can suggest a gastroenteritis /diarrhea. Clinical correlation is recommended. There is an umbilical hernia containing fat. There is no bowel involvement. There is no incarceration. There is no findings suggesting that this is causing a bowel obstruction. PELVIS: APPENDIX: No evidence of acute appendicitis. BLADDER: Unremarkable. REPRODUCTIVE: Enlarged prostate gland. CHEST, ABDOMEN and PELVIS: INTRAPERITONEAL SPACE: Unremarkable. No ascites or other fluid collection. No free air. BONES/JOINTS: L3 vertebral body hemangioma. No suspicious lytic or blastic abnormality. SOFT TISSUES: See above. LYMPH NODES: Unremarkable. No enlarged lymph nodes. CT/CTA Chst, Abd, Pel W and/or WO IMPRESSION: 1. No demonstrated pulmonary embolism or arterial dissection. 2. Focal wall thickening of the antrum of stomach. This can suggest a gastritis. 3. Enlarged prostate gland. 4. There is liquid stool in the colon. This can suggest a gastroenteritis /diarrhea. Clinical correlation is recommended. Electronically Signed: Augusto Davison MD at 20:28 EDT ,
[2021-12-27 19:55] LABS: Anisocytosis RARE; Atypical Lymphocyte 1+ %; Macrocytosis RARE; Platelet Estimate ADEQUATE (ADEQ); Red Cell Morphology N CHROM NORMAL (NORM C&C)
[2021-12-27 20:00] VITALS: BP 122/76; PULSE 75; RESP 16; O2SAT 94
--- NOTE | 2021-12-27 20:26 | ED.RN ---
Per pt hiccups are gone. Dr. Butler updated. Hold off on 2nd dose of thorazine.
[2021-12-27 21:00] VITALS: BP 132/75; PULSE 71; RESP 12; O2SAT 95
== END 2021-12-27 22:08 | disposition home or self-care (01) ==
PROVIDERS: Emergency Provider Emergency Medicine; PCP Family Medicine; Visit Provider Emergency Medicine
DX: R06.6 Hiccough (principal); K51.90 Ulcerative colitis, unspecified, without complications; K29.70 Gastritis, unspecified, without bleeding; Z80.0 Family history of malignant neoplasm of digestive organs
CPT/HCPCS: 71045; 71275; 74174; 80053; 84484; 85025; 93005; J7030; Q9967; A4216

== ENCOUNTER → 2022-01-07 | Outpatient (CLI) | payer MEDICARE, OTHER, SELFPAY ==
--- NOTE | 2022-01-07 08:25 | RAD_ITS ---
STUDY: X-RAY - ESOPHAGUS (BARIUM SWALLOW) WITH FLUOROSCOPY REASON FOR EXAM: Male, 66 years old. Dysphagia, esophageal spasms TECHNIQUE: 15 view(s) of the esophagus were obtained following swallowing of barium. FLUOROSCOPY TIME (if supplied): (35) minutes/seconds COMPARISON: None. FINDINGS: There is no demonstrated esophageal foreign body. There is no demonstrated stricture or mucosal abnormality. Normal gastroesophageal junction, without a demonstrated hiatal hernia. The patient ingested a 12 mm tablet of barium. The tablet is trapped at the gastroesophageal junction. Normal visualized aortic arch and descending thoracic aorta. Normal visualized pulmonary parenchyma. Normal visualized osseous structures of the thorax. RAD/Esophagus Dual Contrast IMPRESSION: The ingested 12 mm tablet of barium is trapped at the gastroesophageal junction. Electronically Signed: Gino Bo MD at 10:21 EDT ,
== END | disposition home or self-care (01) ==
LOC: RAD 08:17
PROVIDERS: PCP Family Medicine; Referring Provider Nurse Practitioner Adult Health; Visit Provider Nurse Practitioner Adult Health
DX: R13.10 Dysphagia, unspecified (principal)
CPT/HCPCS: 74221

== ENCOUNTER 2022-01-15 10:38 | Outpatient (CLI) | payer MEDICARE, OTHER, SELFPAY ==
[2022-01-15 12:35] LABS: Cholesterol 214 mg/dL (200); High Density Lipoprotein 55 mg/dL; PSA,Total- Diagnostic 9.53 ng/mL (0.0-4.0); Triglycerides 110 mg/dL; Very Low Density Lipoprotein 22 mg/dL (5-40)
[2022-01-23 00:08] LABS: Alternaria alternata <0.10 kU/L (Class 0); Aspergillus fumigatus <0.10 kU/L (Class 0); Bahia Grass <0.10 kU/L (Class 0); Beef <0.10 kU/L (Class 0); Bermuda Grass <0.10 kU/L (Class 0); Bluegrass, Kentucky <0.10 kU/L (Class 0); Cat Hair/Dander, Standard <0.10 kU/L (Class 0); Cedar, Mountain <0.10 kU/L (Class 0); Chocolate <0.10 kU/L (Class 0); Cladosporium herbarum <0.10 kU/L (Class 0); Cockroach, American <0.10 kU/L (Class 0); Corn <0.10 kU/L (Class 0); D farinae Mite <0.10 kU/L (Class 0); D pteronyssinus <0.10 kU/L (Class 0); Dog Epithelia <0.10 kU/L (Class 0); Egg, Whole <0.10 kU/L (Class 0); Elm, American White <0.10 kU/L (Class 0); Hazelnut Tree <0.10 kU/L (Class 0); Hickory, White <0.10 kU/L (Class 0); Johnson Grass <0.10 kU/L (Class 0); Maple/Box Elder <0.10 kU/L (Class 0); Milk (Cow) <0.10 kU/L (Class 0); Mucor racemosus <0.10 kU/L (Class 0); Mugwort <0.10 kU/L (Class 0); Mulberry, White <0.10 kU/L (Class 0); Oak, White <0.10 kU/L (Class 0); Peanut <0.10 kU/L (Class 0); Penicillium chrysogen <0.10 kU/L (Class 0); Pigweed, Rough <0.10 kU/L (Class 0); Plantain, English <0.10 kU/L (Class 0); Pork <0.10 kU/L (Class 0); Ragweed, Short/Common <0.10 kU/L (Class 0); Sheep Sorrel(Dock) <0.10 kU/L (Class 0); Soybean <0.10 kU/L (Class 0); Stemphylium herbarum <0.10 kU/L (Class 0); Sycamore, American <0.10 kU/L (Class 0)
== END 2022-01-15 23:59 | disposition home or self-care (01) ==
LOC: MFPLAB 10:44
PROVIDERS: Internal Medicine Gastroenterology; PCP Family Medicine; Referring Provider Family Medicine; Visit Provider Family Medicine
DX: Z00.00 Encounter for general adult medical examination without abnormal findings (principal); R13.10 Dysphagia, unspecified; K52.81 Eosinophilic gastritis or gastroenteritis
CPT/HCPCS: 36415; 80061; 84153; 86003; 86005

== ENCOUNTER 2022-01-18 07:51 | Day surgery (SDC) | payer MEDICARE, OTHER, SELFPAY ==
[2022-01-18] MEDS: Lidocaine Jelly 2% 20 ML Syringe (URO-JET) 1 APPLIC (08:09)
[2022-01-18 08:13] VITALS: BP 142/86; PULSE 60; RESP 16; TEMP 36.4; O2SAT 98
== END 2022-01-18 08:42 | disposition home or self-care (01) ==
PROVIDERS: PCP Family Medicine; Referring Provider Internal Medicine Gastroenterology; Visit Provider Internal Medicine Gastroenterology
PROC: F00ZJWZ Instrumental Swallowing and Oral Function Assessment using Swallowing Equipment (ICD-10-PCS; CPT 43235; principal; 2022-01-18 07:55)
DX: R13.10 Dysphagia, unspecified (principal)
CPT/HCPCS: 91010

== ENCOUNTER 2022-01-29 13:30 | Outpatient (RCR) | payer MEDICARE, OTHER, SELFPAY ==
--- NOTE | 2022-01-21 10:36 | HP.PTEVAL ---
Patient's Visit Information DULCE DODSON is a 66 year old M referred to Physical Therapy by Dr. King Garnett MD with a diagnosis of vertigo. Date of Evaluation: 01/21/22 Physical Therapist: King Fam, DPT, OCS, CSCS - Visit Plan Plan: No skilled intervention required at this time. I did review possible benefit of BD exercises and give him a handout on these. He is to contact doctor if dizzyness returns which would be unexpected in a vestibular problem. - Subjective Last week early in the week suddenly got dizzy in head. (This happens maybe once per year). This time it did not go away in an hour. this time it lasted 4 hours. Saw doctor on the whcih was the second day. None of this prior lately. Everyday has been a little better since then. Could not walk the first day and just a little the second day. Now feels normal except feels hollow in head most of time. Now only gets dizzy if he turns rapidly in bed and his head spins for a minute or if he lowers his head too fast may get a little dizzy. Otherwise at this point, he feels pretty good. Not sure what caused all of this and wants to find out. Sleep is OK. Retired. Spends day on [place], can do it today but has to be careful. Driving is OK. No falls. - Objective Walks normal and safe and I into PT. Transfers I, Steps reciprocal with no rail. Cervical aROM WFL and without pain. Good balance. - B hallpike andrey, - roll test, no symptoms, no nystagmus. Oculomotor: - head thrust. - skew eye deviation. - ocular tilt. no nystagmus with gaze or head shake. normal pursuit and saccades. normal VOR H and V 30 seconds without symptoms. MSQ: Slight symptoms with up form L knee very quickly but otherwise no positions make him dizzy. Overall, patient back to normal - Balance/Special Test Scores Functional Gait Assessment Score: 29 % Disability: 3.3400 Dizziness Score: 12 - Rehabilitation Potential Physical Therapy Diagnosis: Likely BPPV resolved. - Anticipated Interventions Thank you for the opportunity to evaluate your patient. For Medicare and Medicare HMO plans, please review the plan of care and approve it. It will need to be FAXED BACK to us at [phone] for Medicare purposes. For Medicare only, by signing this I certify the plan of care. Please let me know if there are questions or concerns regarding this plan of care. Physician Signature: Date:
--- NOTE | 2022-01-29 13:55 | HP.PTREVAL ---
Dr. King Garnett MD, It has been my pleasure to treat DULCE DODSON over the last 2 visits for vertigo. Please see the progress note below for an update on the physical therapy plan of care! Subjective: Has been doing really well but woke up this morning not feeling great. had brain scan this am for this and no problems with that.Now dizzy low llevel. Almost could not walk to garbage can this am. Tried BD today and did not help. Objective/Function: Checked HD and had positive R sided test today u p torsional delayed onset for 15 seconds. Treated with elle 2x and much better response 2nd time. Less dizzyness and nystagmus. Educated on post elle instruct, BD 8 reps tomorrow if not better and f/u later in week. To contact doctor or ER if get any other symptoms. Fair prognosis toward new goals. Plan Plan: Plan to see patient now 1-2x/week for 2-4 weeks as appropriate since his dizzyness returned for psoitoional treatments and exercises and balance checks. Balance/Gait/Functional tests - Balance/Special Test Scores Functional Gait Assessment Score: 29 % Disability: 3.3400 Dizziness Score: 12 Goals Goal 1:: Abolish dizzyness 100% Goal Time Frame: 2-4 Weeks Goal 2:: Pt feel back to normal with trasnfers and gait. Goal Time Frame: 2-4 Weeks Goal 3:: 2 or less on DHI Goal Time Frame: 2-4 Weeks Anticipated Interventions Comment: posiotional and balance For the Purpose of:: To improve muscle performance and motor function, To increase tolerance to activity/condition/position Comments: positiopnal For the Purpose of:: To increase tolerance to activity/condition/position For the Purpose of:: To decrease pain Please do not hesitate to contact me at [phone] by phone or if you have questions or concerns regarding this new plan of care! Sincerely, King Fam, DPT, OCS, CSCS
--- NOTE | 2022-03-29 13:52 | HP.PT.NRP ---
DULCE DODSON was seen in my office for initial evaluation on 01/21/22. The following Plan of Care was established for this patient: For the Purpose of:: To improve muscle performance and motor function, To increase tolerance to activity/condition/position Comments: positiopnal For the Purpose of:: To increase tolerance to activity/condition/position For the Purpose of:: To decrease pain This patient was last seen in our office 01/29/22. Pertinent comments regarding their Physical therapy will appear below: Pt seen two visits of POC and was treated with positional treatments and was doing well. He was to return weekly as needed but did not schedule any further visits. at this point, it has been almost two months and I will discontinue from my care. At this point I will be discontinuing this patient from physical therapy. I would be happy to see this patient again in the future if found appropriate by the physician. Thank you! King Fam, DPT, OCS, CSCS Balance/Gait/Functional tests - Balance/Special Test Scores Functional Gait Assessment Score: 29 % Disability: 3.3400 Dizziness Score: 12
== END 2022-01-29 19:00 | disposition home or self-care (01) ==
LOC: PT 13:30
PROVIDERS: PCP Family Medicine; Referring Provider Family Medicine; Visit Provider Family Medicine
DX: R42 Dizziness and giddiness (principal)
CPT/HCPCS: 97161; 97530

== ENCOUNTER → 2022-01-29 | Outpatient (CLI) | payer MEDICARE, OTHER, SELFPAY ==
--- NOTE | 2022-01-29 08:11 | CT_ITS ---
STUDY: CT BRAIN WITH AND WITHOUT CONTRAST REASON FOR EXAM: Male, 66 years old. Constant dizziness, worse with motion, CLL and swallowing difficulty RADIATION DOSAGE (If Supplied By Facility): CTDIvol = ( 44.99 ) mGy, DLP = ( 1715.95 ) mGycm TECHNIQUE: Transaxial CT imaging of the brain was performed pre and post contrast administration. The examination was performed with intravenous administration of IV 50mL Isovue-370. Individualized dose optimization techniques were used for this CT. COMPARISON: None. FINDINGS: Normal soft tissue structures. Normal calvarium. Normal size ventricles and extra-axial spaces for the patient''s age. Normal white matter tracts of the cerebral hemispheres. Normal basal ganglia and thalami. Normal brainstem. Normal cerebellum. There is no intracranial hemorrhage. There are no findings of an acute ischemic infarction. Normal visualized paranasal sinuses. CT/Brain/Head W/WO Contrast IMPRESSION: Normal unenhanced and enhanced CT scan of the brain. Electronically Signed: Gino Bo MD at 15:35 EDT ,
[2022-01-29 08:40] LABS: CREATININE FINGERSTICK < 0.9 mg/dL (0.70-1.30); EGFR FINGERSTICK > 60.0000 mL/min (>60)
== END | disposition home or self-care (01) ==
LOC: CT 08:09
PROVIDERS: PCP Family Medicine; Visit Provider Family Medicine
DX: C91.10 Chronic lymphocytic leukemia of B-cell type not having achieved remission (principal); R42 Dizziness and giddiness
CPT/HCPCS: 70470; Q9967

== ENCOUNTER 2022-03-05 11:50 | Day surgery (SDC) | payer MEDICARE, OTHER, SELFPAY ==
[2022-03-05] MEDS: Lactated Ringers 1,000 ML 15 ML IV (12:15)
[2022-03-05 12:27] VITALS: BP 132/85; PULSE 53; RESP 18; TEMP 36.9; O2SAT 96; BMI 28.4
--- NOTE | 2022-03-05 13:00 | EGD_PTH ---
PATIENT: DULCE DODSON LOC: EN U#:[id number] AGE/SX: 66/M ROOM: RE03/05/[address]: Dr. Mayo Boston DO : 1955 BED: DIS: 03/05/2022 SPEC #: [id number] RECD: 03/05/22 15:17 STATUS: CAIO ZAHRA #: [id number] NADINE: 03/05/22 13:[address]: Mayo Boston DEPT: SURGICAL PATHOLOGY RECD BY: Shira Weaver ENTERED: 03/06/22 09:21 SP TYPE: EGD BIOPSY QAMAR DR: Dr. King Garnett MD Tissues: Esophagus, NOS Procedures: Special Stain Group II Surgery Specimen Level IV Alcian Blue/PAS (control) HEADER OPERATION: EGD with biopsy and dilation (MAC) PRE-OP DIAGNOSIS: Difficulty swallowing TISSUE SUBMITTED: Distal esophagus biopsy MICROSCOPIC DIAGNOSIS Distal esophagus, biopsy: Fragments of gastroesophageal mucosa with moderate chronic inflammation. Intestinal metaplasia (goblet cell metaplasia) not identified. See comment. SJ:ivelisse 03/07/2022 COMMENT Alcian blue/PAS stain with matched control is used in the evaluation of the specimen. MICROSCOPIC DESCRIPTION Slides are reviewed. GROSS DESCRIPTION Received in fixative is one container labeled with the patient's name and designated distal esophagus. The specimen consists of multiple irregular fragments of light obrien soft tissue that in aggregate measure 1.5 x 1 x 0.1 cm. The specimen is totally submitted in one cassette. / AM:ivelisse 03/06/2022 TC:3 CPT: 97406, 68050
--- NOTE | 2022-03-05 13:06 | HP.PCM_ITS ---
History and Physical Date of Admission: 03/05/22 DULCE DODSON, is a 66 M who presents to the office today for Follow up. Dulce established with this clinic 09.21.21. Dulce recently moved to the area in January 2021. He would like to establish for Ulcerative colitis diagnosed around 2017. All his life he has had symptoms of diarrhea and general feeling of unwell. Feels that he is very susceptible to antibiotic use. Following dentist treatment with antibiotics he then had C.Difficile with two treatments on two occasions, each occurrence requiring hospitalization. Colonoscopy performed during first occurrence diagnosing UC. His most recent Colonoscopy about two or less years ago did not find any active colitis signs were resolved and he is not currently on medications. He gets flares for about a week with symptoms of variable consistency of BM with minimal pain; he pays close attention to his diet for the duration and they self-resolve. Flares occur as a results of diet choices or increased stress; feels they occur every 1-2 months. 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 Biochemical workup ESR, CMP, LFT, LDH, CRP, globulin, GAME, ARSH, ANCA, KELLY comp, celiac WNL CBC found smudge cells. Refer to [facility] Colonoscopy 12.27.21 without abnormality seen. Pathology noted increased eosinophils in colon without clear significance. Plan last visit 09.21.21: Diarrhea ? stool studies and colonoscopy UC ? biochemical workup and colonoscopy Several weeks ago he was rushed to the ED for dysphagia and had a repeat episode several days later; while eating he will feel like his esophagus will stop swallowing. Historically it has lasted a couple of minutes and spontaneously resolved. Amitriptyline being utilized and he is having significant difficulty with this regarding changes to his mood and affect. ROS Const Constitutional: No fatigue, malaise, night sweats, weight change, sleep problems, abnormal sleep pattern or change in appetite ENT ENT: No difficulty swallowing, hoarseness or sore throat Cardio Cardiology: No chest pain at rest Gastro GI: No abdominal pain, belching, bloating, change in bowel habits, change in stool character, coffee ground emesis, constipation, cramping, diarrhea, heartburn, difficulty swallowing, feeling full early, excessive flatus, incontinent of stools, Vomiting blood/hematemesis, Blood in stool, loose stools, Black,tarry stools, nausea/dyspepsia, pain with swallowing, vomiting or other Musc Musculoskeletal: No joint pain Skin Skin: No yellowing of the eye or itchy eyes Neuro Neurology: No behavioral changes Psych Psychiatric: No abnormal sleep pattern, No anxiety, No behavioral changes, No change in appetite and No depression Endo Endocrine: No fatigue or weight change Aller/Imm Allergy/Immunologic: No itchy eyes Marquis/Lymp Hematologic/Lymphatic: No easy bleeding or easy bruising Exam Const General: cooperative and comfortable Nutritional Appearance: average body habitus and well nourished [facility] Head: normal to inspection Ears: hearing grossly normal bilaterally Nose: external nose normal Face and sinus: normal facial exam Mouth: oral mucosae normal Throat: posterior oropharynx normal Eyes General: appearance normal, both eyes and all related structures Neck Neck: normal visual inspection Chest Chest palpation & inspection: normal inspection of the chest and normal palpation of entire chest wall Resp Effort & Inspection: normal respiratory effort Auscultation: Bilateral: Clear to Auscultation Cardio Palpation: normal PMI Rate: regular rate Rhythm: regular rhythm GI Inspection: normal to inspection Auscultation: normal bowel sounds Percussion: normal to percussion Palpation: no hepatosplenomegaly Skin General: no rashes or lesions noted Neuro General: patient alert Extrem General: normal to inspection Psych Affect: normal affect Quality Reporting Tobacco Screening ([facility] 138) Smoking Status: Never smoker Assessment and Plan Assessment and Plan (1) Difficulty swallowing: ?Status:?Chronic ?Plan: The differential diagnosis for his difficulty swallowing is eosinophilic esophagitis, esophageal motility disorder, esophageal ring, hiatal hernia, esophageal web.? He will undergo an upper endoscopy and he will get an esophageal manometry study.? After that we will have a better understanding of his esophageal dysphagia. (2) Ulcerative colitis: ?Status:?Chronic ?Plan: From his colonoscopy I do not think he has ulcerative colitis.? Structurally and via biopsies it did not show any signs of active, crying or quiescent colitis. 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 He reaches most of the criteria fo r eosinophilic gastroenteritis.? I will not start him on budesonide until he has an upper endoscopy and we can see if he has eosinophilic esophagitis or any other signs of eosinophilic disease in his upper GI tract.? If he does then he may be a good candidate for Dupixent which is a eosinophil clif in the GI tract and in the periphery.? I would have to discuss this with oncology as he does have CLL that is in remission. ? ? ? Orders: Orders Allergens, Zone 8 Today K52.81 - Eosinophilic gastritis or gastroenteritis, R13.10 - Dysphagia, unspecified ? Allergen, Rast Food Profile Today K52.81 - Eosinophilic gastritis or gastroenteritis, R13.10 - Dysphagia, unspecified ? I have examined the patient and the H&P has been reviewed. There are no clinical changes since date of exam.
--- NOTE | 2022-03-05 13:27 | OP.EGD_ITS ---
Patient Name: Gerald Mahmood Procedure Date: 03/05/2022 1:00 PM Date of : 1955 Age: 66 Procedure: Upper GI endoscopy Indications: Dysphagia Providers: Mayo Boston DO Referring MD: Mayo Boston DO Medicines: Monitored Anesthesia Care Patient Profile: This is a 66 year old male. Refer to note in patient chart for documentation of history and physical. Patient has symptoms of dysphagia with solids. Complications: No immediate complications. Procedure: Pre-Anesthesia Assessment: - Prior to the procedure, a History and Physical was performed, and patient medications and allergies were reviewed. The patient is competent. The risks and benefits of the procedure and the sedation options and risks were discussed with the patient. All questions were answered and informed consent was obtained. Patient identification and proposed procedure were verified by the physician in the pre-procedure area. Mental Status Examination: alert and oriented. Airway Examination: normal oropharyngeal airway and neck mobility. Respiratory Examination: clear to auscultation. Prophylactic Antibiotics: The patient does not require prophylactic antibiotics. Prior Anticoagulants: The patient has taken no previous anticoagulant or antiplatelet agents. After reviewing the risks and benefits, the patient was deemed in satisfactory condition to undergo the procedure. The anesthesia plan was to use monitored anesthesia care (MAC). Immediately prior to administration of medications, the patient was re-assessed for adequacy to receive sedatives. The heart rate, respiratory rate, oxygen saturations, blood pressure, adequacy of pulmonary ventilation, and response to care were monitored throughout the procedure. The physical status of the patient was re-assessed after the procedure. After obtaining informed consent, the endoscope was passed under direct vision. Throughout the procedure, the patient's blood pressure, pulse, and oxygen saturations were monitored continuously. The Colonoscope was introduced through the mouth, and advanced to the second part of duodenum. The upper GI endoscopy was accomplished without difficulty. The patient tolerated the procedure well. Scope In: 1:13:32 PM Scope Out: 1:22:00 PM Total Procedure Duration Time 0 hours 8 minutes 28 seconds Findings: Mucosal changes including ringed esophagus and small-caliber esophagus were found in the middle third of the esophagus and in the lower third of the esophagus. Esophageal findings were graded using the Eosinophilic Esophagitis Endoscopic Reference Score (EoE-EREFS) as: Edema Grade 1 Present (decreased clarity or absence of vascular markings) and Rings Grade 2 Moderate (distinct rings that do not occlude passage of diagnostic 8-10 mm endoscope). Biopsies were obtained from the proximal and distal esophagus with cold forceps for histology of suspected eosinophilic esophagitis. Verification of patient identification for the specimen was done. Estimated blood loss was minimal. A guidewire was placed and the scope was withdrawn. Dilation was performed with a Savary dilator with no resistance at 60 Fr. The dilation site was examined following endoscope reinsertion and showed moderate improvement in luminal narrowing. Estimated blood loss was minimal. A medium-sized hiatal hernia was present. The exam of the stomach was otherwise normal. The second portion of the duodenum was normal. Impression: - Esophageal mucosal changes consistent with eosinophilic esophagitis. Biopsied. Dilated. - Medium-sized hiatal hernia. - Normal second portion of the duodenum. Recommendation: - Await pathology results. - Continue present medications. Procedure Code(s): --- Professional --- 14647, Esophagogastroduodenoscopy, flexible, transoral; with insertion of guide wire followed by passage of dilator(s) through esophagus over guide wire 52130, 59,51, Esophagogastroduodenoscopy, flexible, transoral; with biopsy, single or multiple CPT copyright 2017 [employer]. All rights reserved. The codes documented in this report are preliminary and upon ux specialist review may be revised to meet current compliance requirements. Mayo Boston DO 03/05/2022 1:27:09 PM This report has been signed electronically. Number of Addenda: 0 Note Initiated On: 03/05/2022 1:00 PM
[2022-03-05 13:28] VITALS: BP 132/85; BP 96/59; PULSE 56; RESP 17; TEMP 36.3; O2SAT 91
--- NOTE | 2022-03-05 13:28 | OP.CCLET_ITS ---
03/05/2022 King Garnett [address] [place] [address] Re : Upper GI endoscopy procedure for Gerald Mahmood Dear Dr. Garnett This procedure was performed on Saturday, March 05, 2022. My impressions and recommendations are as follows: Impressions : - Esophageal mucosal changes consistent with eosinophilic esophagitis. Biopsied. Dilated. - Medium-sized hiatal hernia. - Normal second portion of the duodenum. Recommendations : - Await pathology results. - Continue present medications. My findings are described in the full procedure note, which is enclosed. If I can be of further assistance, please feel free to contact me at . Sincerely, Mayo Boston, 03/05/2022 1:27:09 PM This report has been signed electronically.
[2022-03-05 13:30] VITALS: BP 132/85; BP 99/57; PULSE 59; RESP 15; O2SAT 92
[2022-03-05 13:35] VITALS: BP 132/85; BP 96/55; PULSE 49; RESP 15; O2SAT 92
[2022-03-05 13:40] VITALS: BP 132/85; BP 97/59; PULSE 50; RESP 16; O2SAT 96
[2022-03-05 13:45] VITALS: BP 102/61; BP 132/85; PULSE 55; RESP 16; TEMP 36.4; O2SAT 96
== END 2022-03-05 14:06 | disposition home or self-care (01) ==
LOC: EN 11:50 → AC 11:51
PROVIDERS: PCP Family Medicine; Referring Provider Internal Medicine Gastroenterology; Visit Provider Internal Medicine Gastroenterology
PROC: 0DJ08ZZ Inspection of Upper Intestinal Tract, Via Natural or Artificial Opening Endoscopic (ICD-10-PCS; CPT 43235; principal; 2022-03-05 12:55)
DX: K52.81 Eosinophilic gastritis or gastroenteritis (principal); R13.10 Dysphagia, unspecified; R53.83 Other fatigue; R19.7 Diarrhea, unspecified; K44.9 Diaphragmatic hernia without obstruction or gangrene; R14.0 Abdominal distension (gaseous)
CPT/HCPCS: 43248; 43239; 88305; 88313; J7120; C1769; J2405

== ENCOUNTER → 2022-10-30 | Outpatient (CLI) | payer MEDICARE, OTHER, SELFPAY ==
[2022-10-30 15:27] LABS: Absolute Lymphocyte Count 6.04 X10^3/uL (0.83-4.51); Absolute Neutrophil Count 4.6 X10^3/uL (2.0-7.7); Basophil# 0.04 X10^3/uL; Basophil% 0.3 % (0-1); Eosinophil# 0.17 X10^3/uL; Eosinophils% 1.5 % (0-5); Hematocrit 45.3 % (40-54); Hemoglobin 14.7 g/dL (13.0-16.5); Lymphocyte # 6.04 X10^3/ul (0.83-4.51); Lymphocyte % 52.1 % (19-41); Mean Corp Hgb Conc 32.5 g/dL (32-36); Mean Corpuscular Hgb 32.1 pg (27.0-32.0); Mean Corpuscular Volume 98.9 fL (80-94); Mean Platelet Vol. 11.1 fl (6.2-12.0); Monocyte# 0.67 X10^3/uL; Monocyte% 5.8 % (0-10); NRBC Flagged by Analyzer 0 % (0-5); Neutrophil # 4.64 X10^3/uL (2.7-7.7); POSITIVE DIFFERENTIAL YES; Platelet Count 180 K/mm3 (150-450); RBC Distribution Width CV 13.4 % (11.6-14.6); Red Blood Count 4.58 M/mm3 (4.6-6.2); White Blood Count 11.6 K/mm3 (4.4-11.0)
[2022-10-30 15:28] LABS: Differential Indicated SCAN CRITERIA MET
[2022-10-30 15:51] LABS: Thyroid Stim Hormone (TSH) 1.41 uIU/mL (0.358-3.74)
[2022-10-30 15:52] LABS: Differential Comment SCANNED
== END | disposition home or self-care (01) ==
LOC: MFPLAB 11:44
PROVIDERS: PCP Family Medicine; Visit Provider Family Medicine
DX: C91.10 Chronic lymphocytic leukemia of B-cell type not having achieved remission (principal); R53.83 Other fatigue; N52.9 Male erectile dysfunction, unspecified
CPT/HCPCS: 36415; 84403; 84443; 85025

== ENCOUNTER → 2022-11-22 | Outpatient (CLI) | payer MEDICARE, OTHER, SELFPAY ==
[2022-11-22 10:06] LABS: Bacteria 0 SEEN /hpf (None Seen); Mucous, Urine 0 SEEN /hpf (<or=2+); White Blood Cells 0 SEEN /hpf (0-5)
[2022-11-22 12:22] LABS: Color, Urine Yellow (Yellow); Glucose, Dipstick Normal (Normal); Ketone-Dipstick Negative (Negative); Leukocyte Esterase-Dipstick Negative /ul (Negative); Nitrite-Dipstick Negative (Negative); Occult Blood-Urine 10 /ul (Negative); Protein-Dipstick 15 mg/dl (Negative); Specific Gravity, Urine 1.015 (1.002-1.030); Urine Bilirubin Dipstick Negative (Negative); Urine Clarity Clear (Clear); Urine Urobilinogen Normal (Normal)
[2022-11-22 12:39] LABS: Red Blood Cells-Urine 0-5 SEEN /hpf (0-5); Squamous Epithelial Cells - UA 0-5 SEEN /hpf (0-5)
[2022-11-22 12:45] LABS: ALB/GLOB Ratio 0.6 RATIO (0.9-2.4); AST(SGOT) 28 U/L (15-37); Alanine Aminotransfer ALT/SGPT 51 U/L (16-61); Albumin, Serum 3.1 g/dL (3.2-5.0); Alkaline Phosphatase 106 U/L (45-117); Anion Gap 5 (5-15); BUN 17 mg/dL (7-18); BUN/Creat Ratio 14.4 RATIO (10-20); Calcium,Total 8.8 mg/dL (8.5-10.1); Chloride 106 mmol/L (98-107); Cholesterol 144 mg/dL (200); Creatinine, Serum 1.18 mg/dL (0.70-1.30); EST Glomerular Filtration Rate 65 mL/min (>60); Est Glom Filt Rate - Afr Amer 79 mL/min (>60); Globulin 4.8 g/dL (2.2-4.2); Glucose 106 mg/dL (74-106); High Density Lipoprotein 43 mg/dL; PSA,Total - Annual Screen 9.06 ng/mL (0.00-4.00); Potassium 4.7 mmol/L (3.5-5.1); Protein, Total 7.9 g/dL (6.4-8.2); Sodium Level 137 mmol/L (136-145); Triglycerides 63 mg/dL; Very Low Density Lipoprotein 13 mg/dL (5-40)
== END | disposition home or self-care (01) ==
LOC: BIMLAB 10:05
PROVIDERS: PCP Internal Medicine; Referring Provider Internal Medicine; Visit Provider Internal Medicine
DX: N40.0 Benign prostatic hyperplasia without lower urinary tract symptoms (principal); E78.5 Hyperlipidemia, unspecified; Z12.5 Encounter for screening for malignant neoplasm of prostate
CPT/HCPCS: 36415; 80053; 80061; 81001; 84153; G0103

== ENCOUNTER → 2023-01-06 | Outpatient (CLI) | payer MEDICARE, OTHER, SELFPAY ==
[2023-01-06 12:06] LABS: PSA,Total- Diagnostic 7.18 ng/mL (0.0-4.0)
== END | disposition home or self-care (01) ==
LOC: LAB 11:09
PROVIDERS: PCP Internal Medicine; Referring Provider Nurse Practitioner; Visit Provider Nurse Practitioner
DX: R97.20 Elevated prostate specific antigen [PSA] (principal)
CPT/HCPCS: 36415; 84153

== ENCOUNTER → 2023-02-24 | Outpatient (CLI) | payer MEDICARE, OTHER, SELFPAY ==
[2023-02-28 13:07] LABS: Pancreatic Elastase, Fecal 153 (>200)
[2023-03-08 00:07] LABS: Calprotectin, Stool 662 ug/g (0-120); Fats, Neutral Normal (.); Fats, Total Normal (.)
== END | disposition home or self-care (01) ==
PROVIDERS: PCP Internal Medicine; Visit Provider Internal Medicine Gastroenterology
DX: K58.9 Irritable bowel syndrome, unspecified (principal); R19.7 Diarrhea, unspecified
CPT/HCPCS: 82274; 82653; 82705; 83630; 83993; 87177; 87209; 87329; 87493

== ENCOUNTER 2023-02-27 13:39 | Inpatient (IN) | payer MEDICARE, OTHER, SELFPAY ==
[2023-02-27] VITALS (9 sets, daily range): BP systolic 97–133; BP diastolic 58–74; PULSE 85–118; RESP 16–24; TEMP 36.3–39.1; O2SAT 92–100; BMI 24.7; BMI 25.2
--- NOTE | 2023-02-27 14:29 | CT_ITS ---
STUDY: CT ABDOMEN AND PELVIS WITH CONTRAST REASON FOR EXAM: Male, 67 years old. abdominal pain. History of CLL. RADIATION DOSAGE (If Supplied By Facility): CTDIvol = ( 12.09 ) mGy, DLP = ( 722.65 ) mGycm TECHNIQUE: Transaxial images were obtained from the dome of the diaphragm to the symphysis pubis without oral contrast. IV 100mL Isovue-300 was administered. Sagittal and coronal images were reconstructed. Individualized dose optimization techniques were used for this CT. COMPARISON: None. FINDINGS: The visualized lung bases are unremarkable. The visualized portions of the heart are within normal limits. Normal liver. Normal gallbladder and extrahepatic biliary system. Normal spleen. Normal pancreas. Normal bilateral adrenal glands. Bilateral parapelvic renal cysts. Normal visualized stomach. Normal small intestine. Findings suggestive of colitis of the entire colon down to the rectosigmoid colon. The appendix is visualized and appears normal. Normal abdominal aorta. Normal inferior vena cava. Normal retroperitoneum. Normal urinary bladder. Heterogeneous enlargement of the prostate with indentation of the bladder base. Mild degree of bladder wall thickening. Normal abdominal wall. Normal osseous structures. CT/Abdomen/Pelvis W IV Cont ONLY IMPRESSION: Colitis. Heterogeneous enlargement of the prostate. Electronically Signed: Gino Bo MD at 15:52 EDT ,
--- NOTE | 2023-02-27 14:34 | ED.VIS.GI ---
HPI HPI - GI History of Present Illness Chief Complaint: Abd Pain Narrative Narrative: 67-year-old male with history of C. difficile colitis presenting with left lower quadrant abdominal pain. He is a patient of Dr. Boston. Patient states he was post to get an infusion of monoclonal antibodies but due to the pain he was referred to the ER. He states he does typically have pain but this is worse than he usually has to deal with. He denies fevers. He does admit to diarrhea. He does not have any black or bloody stool but he does he was occult positive for blood in stool. Positive C. difficile with Dr. Boston. Patient finished his oral vancomycin and is waiting for Dificid through the mail. [facility] Medical History Arthritis BPH (benign prostatic hyperplasia) C. difficile colitis Cancer Cough Diarrhea Difficulty swallowing History of alcohol abuse History of back problems History of leukemia History of ulceration Hx of Clostridium difficile infection Hx of seasonal allergies Hyperlipidemia Neuropathy Night sweats Non-smoker Prostate disease Shortness of breath on exertion Ulcerative colitis Wears glasses Home Medications fexofenadine 60 mg tablet (Maria Luz Allergy) 60 mg PO QHS 10/22/21 [History Last Taken Unknown] lactobacillus combination no.9 4 billion cell capsule (Adult 50 Plus Probiotic) 4,000 mmu cells PO QHS 10/22/21 [History Last Taken Unknown] magnesium glycinate 500 mg PO QHS 10/22/21 [History Last Taken Unknown] tadalafil 5 mg tablet 5 mg PO QHS ED 10/22/21 [History Last Taken Unknown] zinc gluconate-zinc picolinate 30 mg capsule 50 mg PO QHS 10/22/21 [History Last Taken Unknown] cholecalciferol (vitamin D3) 25 mcg (1,000 unit) tablet (Vitamin D3) 25 mcg PO QHS 12/21/21 [History Last Taken Unknown] vitamin B complex 1 cap PO QHS 12/21/21 [History Last Taken Unknown] alprazolam 0.5 mg tablet (Xanax) 0.5 mg PO DAILY PRN anxiety #20 tabs 08/26/22 [Rx Last Taken Unknown] digestive enzymes 1 cap PO DAILY 11/22/22 [History Last Taken Unknown] terazosin 10 mg capsule 10 mg PO QHS BPH #90 caps 08/23/23 [Rx Last Taken Unknown] amitriptyline 10 mg tablet 5 mg PO DAILY 01/30/23 [History Last Taken Unknown] doxycycline hyclate 100 mg tablet 100 mg PO BID #20 tabs 01/30/23 [Rx Last Taken Unknown] bezlotoxumab 25 mg/mL intravenous solution 890 mg (35.6 mL) .Route ONCE #40 mL 02/25/23 [Rx Last Taken Unknown] fidaxomicin 200 mg tablet (Dificid) 200 mg PO Q12H 10 days #20 tabs 02/25/23 [Rx Last Taken Unknown] dicyclomine 20 mg tablet 20 mg PO TID PRN abdominal pain #45 tabs 02/27/23 [Rx Last Taken Unknown] ondansetron HCl 4 mg tablet 4 mg PO Q8H PRN nausea and vomiting #14 tabs 02/27/23 [Rx Last Taken Unknown] Allergy/AdvReac Type Severity Reaction Status Date / Time amoxicillin [From Augmentin] AdvReac Vomiting Verified 02/27/23 13:40 clavulanic acid AdvReac Vomiting Verified 02/27/23 13:40 [From Augmentin] Family History Father Colon cancer Surgical History Hx of colonoscopy Hx of esophagogastroduodenoscopy Hx of prostate biopsy Social History (Updated 02/27/23 @ 15:45 by Rosario Mendoza) household members: spouse housing: house Smoking Status: Never smoker alcohol intake: former substance use type: does not use what type of physical activity do you participate in: weight training frequency: daily ROS ROS ED Constitutional Constitutional ED: Denies chills, fever(s) or sweats Eyes Eyes: Denies blurry vision or change in vision ENT ENT ED: Denies ear pain or sore throat Cardiovascular Cardiovascular: Denies chest pain, palpitations or racing heartbeat Respiratory/Chest Respiratory/Chest: Denies cough, dyspnea or sputum Gastrointestinal Gastrointestinal: Reports abdominal pain, diarrhea and nausea; Denies constipation or vomiting Genitourinary Genitourinary ED: Denies dysuria, hematuria or urinary frequency Musculoskeletal Musculoskeletal: Denies arthralgias, myalgias or neck pain Integumentary Denies abscess, Abrasions or rash Neurologic Neurologic: Denies headache(s), paresthesias or weakness Psychiatric Psychiatric: Denies anxiety, depression, suicidal ideation or suicidal thoughts Endocrine Endocrinology: Denies polydipsia or polyuria EXAM Physical Exam Const Vital Signs: 02/27/23 13:40 02/27/23 14:59 02/27/23 17:35 Temperature 97.4 F L 100.0 F H 100 F H Temperature Source Temporal Oral Oral Pulse Rate 85 118 H Respiratory Rate 18 24 H Blood Pressure 133/74 H 114/67 Blood Pressure Mean 93 82 Pulse Ox 100 93 Oxygen Delivery Method Room Air Room Air 02/27/23 17:35 Temperature Temperature Source Pulse Rate 118 H Respiratory Rate 24 H Blood Pressure 114/67 Blood Pressure Mean 82 Pulse Ox 93 Oxygen Delivery Method Room Air Positive well nourished General Appearance ED: Negative for pallor HEENT Reports moist mucous membranes normocephalic Eyes PERRL and EOMs intact bilaterally Resp normal respiratory effort Cardio regular rate and regular rhythm GI Palpation: tender LLQ Back/Spine no CVA tenderness Neuro CN's II-XII intact bilaterally Sensorium / Orientation: alert Psych mental status grossly normal and thought process normal Skin no wounds General Skin Exam: Negative for jaundice or pallor MDM MDM MDM Narrative Medical decision making narrative: 67-year-old male with history of C. difficile presenting with abdominal pain. Differential includes patient presenting with right flank pain. Differential includes colitis, diverticulitis, gastritis, pancreatitis, constipation, UTI, pyelonephritis, renal calculi, ureteral calculi, bowel obstruction, malignancy, dehydration, electrolyte abnormalities, C. difficile, GI bleed, anemia. CBC will be obtained to assess white blood cell count, hemoglobin, platelets. CMP to assess liver function, renal function and electrolytes. Lipase to assess for pancreatitis. After speaking with Dr. Boston he wants an ESR, CRP, lactic acid. Patient given IV fluids, morphine, Zofran. Urinalysis will be obtained to assess for UTI. CBC shows a leukocytosis of 16 which is actually the highest he had. Hemoglobin stable at 15.8. Platelets are normal at 152. Renal function within normal limits. LFTs appear to be normal. CRP slightly elevated at 9.96 and ESR is normal at 8. UA negative for infection. CT of the abdomen pelvis with IV contrast shows colitis. Case was discussed with Dr. Botson who recommended not doing the infusion of monoclonal antibodies and to also admit the patient on a regimen of oral vancomycin and IV Flagyl. This was discussed with the patient. Prior to going up to the floor the patient had return of pain and was given another dose of morphine. Impression 1. Abdominal pain 2. C. difficile colitis 3. Leukocytosis 4. Failure of outpatient antibiotic Lab Data Labs: Laboratory Results - last 24 hr 02/27/23 02/27/23 02/27/23 14:05 14:20 15:47 WBC 16.0 H RBC 5.05 Hgb 15.8 Hct 47.4 MCV 93.9 MCH 31.3 MCHC 33.3 RDW Std Deviation 50.9 H RDW Coeff of Anastacia 14.7 H Plt Count 152 MPV 10.2 Immature Gran % (Auto) 0.300 Neut % (Auto) 67.0 Lymph % (Auto) 28.3 [place] % (Auto) 3.7 Eos % (Auto) 0.3 Baso % (Auto) 0.4 Absolute Neuts (auto) 10.7 H Absolute Lymphs (auto) 4.52 H Nucleated RBC % 0 ESR 8 Sodium 140 Potassium 3.9 Chloride 111 H Carbon Dioxide 26.0 Anion Gap 3 L BUN 18 Creatinine 1.20 Estim Creat Clear Calc 65.56 Est GFR (MDRD) Af Amer 78 Est GFR (MDRD) Non-Af 64 BUN/Creatinine Ratio 15.0 Glucose 110 H Lactic Acid 1.2 Calcium 8.9 Total Bilirubin 0.60 AST 12 L ALT 30 Alkaline Phosphatase 74 C-React Prot Ext Range 9.96 H Total Protein 8.0 Albumin 3.6 Globulin 4.4 H Albumin/Globulin Ratio 0.8 L Lipase 39 Urine Color Yellow Urine Clarity Clear Urine pH 5.0 Ur Specific [place] 1.020 Urine Protein 15 H Urine Glucose (UA) Normal Urine Ketones 50 H Urine Occult Blood 50 H Urine Nitrite Negative Urine Bilirubin Negative Urine Urobilinogen Normal Ur Leukocyte Esterase Negative Urine RBC 0-5 SEEN Urine WBC 0 SEEN Ur Squamous Epith Cells 0-5 SEEN Urine Bacteria 0 SEEN Urine Mucus RARE Radiography Diagnostic Testing: Clinical Impression(s) from Imaging Studies Abdomen/Pelvis CT 02/27/23 14:29 IMPRESSION: Colitis. Heterogeneous enlargement of the prostate. Electronically Signed: Gino Bo MD at 15:52 EDT , Discharge Plan Triage Chief Complaint: Abd Pain ED Provider: Sriram Dennison Dx/Rx/DC Orders Prescriptions: No Action tadalafil 5 mg tablet 5 mg PO QHS Adult 50 Plus Probiotic 4 billion cell capsule 4,000 mmu cells PO QHS Rx Instructions: administer with a meal fexofenadine [Maria Luz Allergy] 60 mg tablet 60 mg PO QHS zinc gluconate-zinc picolinate 30 mg capsule 50 mg PO QHS magnesium glycinate 100 mg magnesium capsule 500 mg PO QHS alprazolam [Xanax] 0.5 mg tablet 0.5 mg PO DAILY PRN (Reason: anxiety) Qty: 20 0RF digestive enzymes Capsule 1 cap PO DAILY Rx Instructions: administer with food; swallow whole; do not crush/chew/dissolve/break/cut amitriptyline 10 mg tablet 5 mg PO DAILY doxycycline hyclate 100 mg tablet 100 mg PO BID Qty: 20 0RF vitamin B complex Capsule 1 cap PO QHS cholecalciferol (vitamin D3) [Vitamin D3] 25 mcg (1,000 unit) Tablet 25 mcg PO QHS terazosin 10 mg capsule 10 mg PO QHS Qty: 90 1RF Dificid 200 mg tablet 200 mg PO Q12H 10 Days Qty: 20 0RF bezlotoxumab 25 mg/mL solution 890 mg .Route ONCE Qty: 40 0RF Rx Instructions: onceInfuse 1 vial Zinplava via IV per protocol for weight of 89.09 kg. No additional orders dicyclomine 20 mg tablet 20 mg PO TID PRN (Reason: abdominal pain) Qty: 45 2RF ondansetron HCl 4 mg tablet 4 mg PO Q8H PRN (Reason: nausea and vomiting) Qty: 14 1RF Primary Care Provider: Merle Mercado Referrals: Merle Mercado MD [Primary Care Provider] -
[2023-02-27 14:41] LABS: Absolute Lymphocyte Count 4.52 X10^3/uL (0.83-4.51); Absolute Neutrophil Count 10.7 X10^3/uL (2.0-7.7); Basophil# 0.07 X10^3/uL; Basophil% 0.4 % (0-1); Eosinophil# 0.04 X10^3/uL; Eosinophils% 0.3 % (0-5); Hematocrit 47.4 % (40-54); Hemoglobin 15.8 g/dL (13.0-16.5); Lymphocyte # 4.52 X10^3/ul (0.83-4.51); Lymphocyte % 28.3 % (19-41); Mean Corp Hgb Conc 33.3 g/dL (32-36); Mean Corpuscular Hgb 31.3 pg (27.0-32.0); Mean Corpuscular Volume 93.9 fL (80-94); Mean Platelet Vol. 10.2 fl (6.2-12.0); Monocyte# 0.59 X10^3/uL; Monocyte% 3.7 % (0-10); NRBC Flagged by Analyzer 0 % (0-5); Neutrophil # 10.73 X10^3/uL (2.7-7.7); Platelet Count 152 K/mm3 (150-450); RBC Distribution Width CV 14.7 % (11.6-14.6); RBC Distribution Width SD 50.9 fl (35.1-43.9); Red Blood Count 5.05 M/mm3 (4.6-6.2)
[2023-02-27] MEDS: Ondansetron 4 MG/2 ML Vial IV (14:42)
[2023-02-27] MEDS: Morphine 4 MG/ML Syringe IV ×2 (14:42→17:03)
[2023-02-27] MEDS: 0.9% Normal Saline (1000mL) 1,000 ML 1000 ML IV (14:42)
[2023-02-27 14:57] LABS: ALB/GLOB Ratio 0.8 RATIO (0.9-2.4); AST(SGOT) 12 U/L (15-37); Alanine Aminotransfer ALT/SGPT 30 U/L (16-61); Albumin, Serum 3.6 g/dL (3.2-5.0); Alkaline Phosphatase 74 U/L (45-117); Anion Gap 3 (5-15); BUN 18 mg/dL (7-18); CRP 9.96 mg/L (0.0-3.0); Calcium,Total 8.9 mg/dL (8.5-10.1); Chloride 111 mmol/L (98-107); EST Glomerular Filtration Rate 64 mL/min (>60); Est Glom Filt Rate - Afr Amer 78 mL/min (>60); Estimated Creatinine Clearance 65.56 ml/min; Globulin 4.4 g/dL (2.2-4.2); Glucose 110 mg/dL (74-106); Lipase 39 U/L (13-75); Potassium 3.9 mmol/L (3.5-5.1); Sodium Level 140 mmol/L (136-145)
[2023-02-27 15:10] LABS: Lactic Acid 1.2 mmol/L (0.4-1.9)
[2023-02-27 15:12] LABS: Erythrocyte Sedimentation Rate 8 mm/hr (0-20)
[2023-02-27] MEDS: Acetaminophen 500 MG Tablet 1000 MG PO (15:31)
[2023-02-27 15:52] LABS: Bacteria 0 SEEN /hpf (None Seen); White Blood Cells 0 SEEN /hpf (0-5)
[2023-02-27 16:08] LABS: Color, Urine Yellow (Yellow); Glucose, Dipstick Normal (Normal); Ketone-Dipstick 50 mg/dl (Negative); Leukocyte Esterase-Dipstick Negative /ul (Negative); Nitrite-Dipstick Negative (Negative); Occult Blood-Urine 50 /ul (Negative); Protein-Dipstick 15 mg/dl (Negative); Urine Bilirubin Dipstick Negative (Negative); Urine Clarity Clear (Clear); Urine Urobilinogen Normal (Normal)
[2023-02-27 16:13] LABS: Red Blood Cells-Urine 0-5 SEEN /hpf (0-5); Squamous Epithelial Cells - UA 0-5 SEEN /hpf (0-5)
[2023-02-27 16:14] LABS: Mucous, Urine RARE /hpf (<or=2+)
[2023-02-27] MEDS: HYDROmorphone 0.5 MG/0.5 ML SYRINGE IV (17:13)
--- NOTE | 2023-02-27 17:32 | PCM.HP.STD ---
HPI - General General Date of Admission: 02/27/23 Date of Service: 02/27/23 Chief Complaint: Persistent diarrhea, abdominal cramping, recurrent C. difficile colitis HPI Narrative DULCE DODSON, is a 67 M who presents to the emergency room at [facility] with complaints of severe abdominal cramping, generalized weakness, persistent diarrhea, and stool that was positive for C. difficile this past Friday. Patient started having diarrhea this past Friday, he has had a history of 4 episodes of C. difficile colitis over his lifetime-the last one being 2018. He was scheduled to get a monoclonal antibody infusion today but was too ill to undergo the infusion. Work-up in the emergency room included a CBC which showed an elevated white blood cell count,, chemistry profile was unremarkable except for an elevated chloride. UA was unremarkable. Patient was given IV morphine in the emergency room for abdominal and back pain, he had to then be given IV Dilaudid after 2 doses of IV morphine due to persistent pain. Gastroenterology was contacted and will see the patient in consultation, they recommended IV Flagyl and oral vancomycin. Patient will be admitted to [place] [address], IV fluids will be administered, he will remain on IV Flagyl and vancomycin. [facility] Medical History Arthritis BPH (benign prostatic hyperplasia) C. difficile colitis Cancer Cough Diarrhea Difficulty swallowing History of alcohol abuse History of back problems History of leukemia History of ulceration Hx of Clostridium difficile infection Hx of seasonal allergies Hyperlipidemia Neuropathy Night sweats Non-smoker Prostate disease Shortness of breath on exertion Ulcerative colitis Wears glasses Home Medications fexofenadine 60 mg tablet (Maria Luz Allergy) 60 mg PO QHS 10/22/21 [History Last Taken Unknown] lactobacillus combination no.9 4 billion cell capsule (Adult 50 Plus Probiotic) 4,000 mmu cells PO QHS 10/22/21 [History Last Taken Unknown] magnesium glycinate 500 mg PO QHS 10/22/21 [History Last Taken Unknown] tadalafil 5 mg tablet 5 mg PO QHS ED 10/22/21 [History Last Taken Unknown] zinc gluconate-zinc picolinate 30 mg capsule 50 mg PO QHS 10/22/21 [History Last Taken Unknown] cholecalciferol (vitamin D3) 25 mcg (1,000 unit) tablet (Vitamin D3) 25 mcg PO QHS 12/21/21 [History Last Taken Unknown] vitamin B complex 1 cap PO QHS 12/21/21 [History Last Taken Unknown] alprazolam 0.5 mg tablet (Xanax) 0.5 mg PO DAILY PRN anxiety #20 tabs 08/26/22 [Rx Last Taken Unknown] digestive enzymes 1 cap PO DAILY 11/22/22 [History Last Taken Unknown] terazosin 10 mg capsule 10 mg PO QHS BPH #90 caps 12/18/22 [Rx Last Taken Unknown] amitriptyline 10 mg tablet 5 mg PO DAILY 01/30/23 [History Last Taken Unknown] doxycycline hyclate 100 mg tablet 100 mg PO BID #20 tabs 01/30/23 [Rx Last Taken Unknown] bezlotoxumab 25 mg/mL intravenous solution 890 mg (35.6 mL) .Route ONCE #40 mL 02/25/23 [Rx Last Taken Unknown] fidaxomicin 200 mg tablet (Dificid) 200 mg PO Q12H 10 days #20 tabs 02/25/23 [Rx Last Taken Unknown] dicyclomine 20 mg tablet 20 mg PO TID PRN abdominal pain #45 tabs 02/27/23 [Rx Last Taken Unknown] ondansetron HCl 4 mg tablet 4 mg PO Q8H PRN nausea and vomiting #14 tabs 02/27/23 [Rx Last Taken Unknown] Allergy/AdvReac Type Severity Reaction Status Date / Time amoxicillin [From Augmentin] AdvReac Vomiting Verified 02/27/23 13:40 clavulanic acid AdvReac Vomiting Verified 02/27/23 13:40 [From Augmentin] Family History Father Colon cancer Surgical History Hx of colonoscopy Hx of esophagogastroduodenoscopy Hx of prostate biopsy Social History (Updated 02/27/23 @ 15:45 by Rosario Mendoza) household members: spouse housing: house Smoking Status: Never smoker alcohol intake: former substance use type: does not use what type of physical activity do you participate in: weight training frequency: daily ROS Constitutional Constitutional: Reports fatigue, malaise and weakness; Denies anorexia, change in weight, chills, fever(s) or night sweats Eyes Eyes: Denies blurry vision, change in eye color, change in vision, discharge from eye(s), double vision or eye pain Cardiovascular Cardiovascular: Denies chest pain, claudication, dyspnea on exertion, edema, lightheadedness or palpitations Respiratory/Chest Respiratory/Chest: Denies cough, dyspnea, hemoptysis, productive cough, shortness of breath at rest or shortness of breath with exertion Gastrointestinal Gastrointestinal: Denies abdominal pain, coffee ground emesis, constipation, diarrhea, dyspepsia, hematemesis, hematochezia, melena, nausea or vomiting Genitourinary Genitourinary: Denies dysuria, hematuria, nocturia, urinary frequency, urinary hesitancy, urinary incontinence or urinary urgency Musculoskeletal Musculoskeletal: Denies back pain, joint pain, joint stiffness, joint swelling, myalgias or neck pain Neurologic Neurologic: Denies abnormal gait, abnormal speech, confusion, disequilibrium, dizziness, focal weakness, headache(s), loss of vision, numbness, other visual disturbances, paresthesias, syncope or tingling Psychiatric Psychiatric: Denies anxiety, cognitive impairment, depression, irritability, mood swings or suicidal ideation Endocrine Endocrinology: Denies change in body appearance, cold intolerance, excessive sweating, heat intolerance, polydipsia or polyuria Hematologic/Lymphatic Hematologic/Lymphatic: Denies none, anemia, easy bleeding, easy bruising or lymphadenopathy Allergic/Immunologic Allergic/Immunologic: Denies rhinitis, urticaria, eczemia or asthma Vital Signs Vital Signs Vital Signs: 02/27/23 13:40 02/27/23 14:59 Temperature 97.4 F L 100.0 F H Temperature Source Temporal Oral Pulse Rate 85 Respiratory Rate 18 Blood Pressure 133/74 H Blood Pressure Mean 93 Pulse Ox 100 Oxygen Delivery Method Room Air Weight Weight: 82.554 kg Body Mass Index (BMI) 24.7 Physical Exam Const alert, oriented x3, no apparent distress and average body habitus General Appearance: cooperative, well kempt and well developed Orientation / Consciousness: awake, oriented to person, oriented to place and oriented to time HEENT normocephalic, head/scalp atraumatic and hearing grossly normal bilaterally HEENT Narrative: Dry mucous membranes Eyes PERRL, EOMs intact bilaterally and conjunctivae normal Neck supple, no JVD, thyroid normal and no carotid bruits General: trachea midline Resp normal respiratory effort, no retractions, no use of accessory muscles and clear to auscultation bilaterally Auscultation: Negative for rales, rhonchi or wheezes Cardio regular rate, regular rhythm, S1 normal heart sound, S2 normal heart sound, no murmurs, no rub and no gallops GI normal to inspection, nondistended, normoactive bowel sounds and non-distended GI Narrative: Mild abdominal tenderness to palpation diffusely Auscultation: hyperactive bowel sounds Extremity no clubbing, cyanosis or edema Skin no rashes or lesions noted General Skin Exam: no breakdown Neuro oriented x3, CN's II-XII intact bilaterally, no focal motor deficits and no sensory deficits noted Sensorium / Orientation: awake, alert, oriented to person, oriented to place and oriented to time Speech: speech normal Psych affect normal Results Lab / Micro Data 02/27/23 14:05 02/27/23 14:05 Labs: Laboratory Results - last 24 hr 02/27/23 14:05: WBC 16.0 H, RBC 5.05, Hgb 15.8, Hct 47.4, MCV 93.9, MCH 31.3, MCHC 33.3, RDW Std Deviation 50.9 H, RDW Coeff of Anastacia 14.7 H, Plt Count 152, MPV 10.2, Immature Gran % (Auto) 0.300, Neut % (Auto) 67.0, Lymph % (Auto) 28.3, [place] % (Auto) 3.7, Eos % (Auto) 0.3, Baso % (Auto) 0.4, Absolute Neuts (auto) 10.7 H, Absolute Lymphs (auto) 4.52 H, Nucleated RBC % 0, ESR 8, Sodium 140, Potassium 3.9, Chloride 111 H, Carbon Dioxide 26.0, Anion Gap 3 L, BUN 18, Creatinine 1.20, Estim Creat Clear Calc 65.56, Est GFR (MDRD) Af Amer 78, Est GFR (MDRD) Non-Af 64, BUN/Creatinine Ratio 15.0, Glucose 110 H, Calcium 8.9, Total Bilirubin 0.60, AST 12 L, ALT 30, Alkaline Phosphatase 74, C-React Prot Ext Range 9.96 H, Total Protein 8.0, Albumin 3.6, Globulin 4.4 H, Albumin/Globulin Ratio 0.8 L, Lipase 39 02/27/23 14:20: Lactic Acid 1.2 02/27/23 15:47: Urine Color Yellow, Urine Clarity Clear, Urine pH 5.0, Ur Specific [place] 1.020, Urine Protein 15 H, Urine Glucose (UA) Normal, Urine Ketones 50 H, Urine Occult Blood 50 H, Urine Nitrite Negative, Urine Bilirubin Negative, Urine Urobilinogen Normal, Ur Leukocyte Esterase Negative, Urine RBC 0-5 SEEN, Urine WBC 0 SEEN, Ur Squamous Epith Cells 0-5 SEEN, Urine Bacteria 0 SEEN, Urine Mucus RARE Radiology Impression Abdomen/Pelvis CT 02/27/23 14:29 IMPRESSION: Colitis. Heterogeneous enlargement of the prostate. Electronically Signed: Gino Bo MD at 15:52 EDT , Assessment & Plan Assessment/Plan (1) Diarrhea: PLAN: Plan 1. Recurrent C. difficile colitis-resistant to outpatient treatment-[facility], IV Flagyl will be administered and oral vancomycin, he will be seen in consultation by gastroenterology #2 clinical dehydration-patient's BUN and creatinine are not elevated but the patient looks dry, IV fluids will be administered #3 BPH-patient is on 20 mg of Hytrin at home daily, we do not stock this medication at the hospital here, he has agreed to go on Flomax, I have placed him on 0.8 mg daily, patient is also taking Proscar #4 past history of CLL-patient is no longer receiving treatment for this #5 chronic anxiety-patient will be placed on Xanax 0.5 mg every 6 hours as needed for anxiety Total clinical time spent by myself addressing the patient's medical issues, reviewing all of his data, and collaborating with the patient's care team: 55 minutes Charges/Coding Visit Charges Inpatient E&M: 89716 Init Hosp L2
[2023-02-27] MEDS: 0.9% Saline Lock 10 ML Syringe IV (19:38)
[2023-02-27] MEDS: 0.9% Normal Saline (1000mL) 1,000 ML 175 ML IV (19:38)
[2023-02-27] MEDS: Tamsulosin HCl 0.4 MG Capsule 0.8 MG PO (19:39)
[2023-02-27] MEDS: Finasteride 5 MG Tablet PO (19:39)
[2023-02-27] MEDS: metroNIDAZOLE 500 MG/100 ML BAG 100 MG IV ×2 (20:07→23:24)
[2023-02-27] MEDS: Vancomycin 125 MG/5 ML Susp PO.SYRINGE 250 MG PO ×2 (20:07→23:25)
[2023-02-27] MEDS: Acetaminophen 325 MG Tablet 650 MG PO (23:25)
[2023-02-28 01:00] VITALS: BP 102/59; PULSE 103; RESP 18; TEMP 38.4; O2SAT 95
[2023-02-28] MEDS: HYDROmorphone 1 MG/ML Syringe IV ×2 (02:48→23:35)
[2023-02-28] MEDS: 0.9% Saline Lock 10 ML Syringe IV (02:48)
[2023-02-28 02:58] VITALS: BP 100/62; PULSE 84; RESP 18; TEMP 37.7; O2SAT 92
[2023-02-28] MEDS: 0.9% Normal Saline (1000mL) 1,000 ML 175 ML IV ×4 (03:00→19:41)
[2023-02-28] MEDS: 0.9% Normal Saline (250mL Bag) 250 ML 15 ML IV (06:07)
[2023-02-28] MEDS: Vancomycin 125 MG/5 ML Susp PO.SYRINGE 250 MG PO ×4 (06:07→23:29)
[2023-02-28] MEDS: metroNIDAZOLE 500 MG/100 ML BAG 100 MG IV ×4 (06:07→23:28)
[2023-02-28 06:13] VITALS: BP 96/64; PULSE 78; RESP 16; TEMP 36.7; O2SAT 94
[2023-02-28 07:10] LABS: Absolute Lymphocyte Count 2.86 X10^3/uL (0.83-4.51); Absolute Neutrophil Count 8.1 X10^3/uL (2.0-7.7); Basophil# 0.11 X10^3/uL; Basophil% 0.9 % (0-1); Eosinophil# 0.01 X10^3/uL; Eosinophils% 0.1 % (0-5); Hematocrit 42.6 % (40-54); Hemoglobin 13.9 g/dL (13.0-16.5); Lymphocyte # 2.86 X10^3/ul (0.83-4.51); Lymphocyte % 22.2 % (19-41); Mean Corp Hgb Conc 32.6 g/dL (32-36); Mean Corpuscular Hgb 31.5 pg (27.0-32.0); Mean Corpuscular Volume 96.6 fL (80-94); Mean Platelet Vol. 10.4 fl (6.2-12.0); Monocyte# 1.76 X10^3/uL; Monocyte% 13.7 % (0-10); NRBC Flagged by Analyzer 0 % (0-5); Neutrophil # 8.08 X10^3/uL (2.7-7.7); Neutrophil % 62.8 % (47-70); POSITIVE DIFFERENTIAL YES; POSITIVE MORPHOLOGY YES; Platelet Count 145 K/mm3 (150-450); RBC Distribution Width CV 14.9 % (11.6-14.6); RBC Distribution Width SD 53.1 fl (35.1-43.9); Red Blood Count 4.41 M/mm3 (4.6-6.2); White Blood Count 12.9 K/mm3 (4.4-11.0)
[2023-02-28 07:26] LABS: Differential Indicated SCAN CRITERIA MET
[2023-02-28 07:37] LABS: Anion Gap 6 (5-15); BUN 15 mg/dL (7-18); BUN/Creat Ratio 12.9 RATIO (10-20); Calcium,Total 7.9 mg/dL (8.5-10.1); Chloride 114 mmol/L (98-107); Creatinine, Serum 1.16 mg/dL (0.70-1.30); EST Glomerular Filtration Rate 67 mL/min (>60); Est Glom Filt Rate - Afr Amer 81 mL/min (>60); Estimated Creatinine Clearance 67.83 ml/min; Glucose 119 mg/dL (74-106); Potassium 3.7 mmol/L (3.5-5.1); Sodium Level 140 mmol/L (136-145)
[2023-02-28] MEDS: Finasteride 5 MG Tablet PO (08:06)
[2023-02-28] MEDS: Ensure Clear 120 ML Liquid PO ×3 (08:11→17:34)
--- NOTE | 2023-02-28 08:16 | PCM.PN.HOSP ---
Reason for Visit Reason for Visit: Diagnoses Diarrhea, unspecified (02/27/23) Subjective Subjective Patient is a 67-year-old gentleman with history of recurrent C. 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 for inpatient treatment Objective Data Objective Data Vital Signs: Vital Signs Temp Pulse Resp BP Pulse Ox O2 Del Method 98.0 F 78 16 96/64 94 Room Air 02/28/23 06:13 02/28/23 06:13 02/28/23 06:13 02/28/23 06:13 02/28/23 06:13 02/28/23 06:13 Oxygen Delivery Method Room Air Weight: 84.368 kg Body Mass Index (BMI) 25.2 Intake & Output: Intake and Output for Last 24 Hours 02/26/23 02/27/23 02/28/23 23:59 23:59 23:59 Intake Total 1693.33 / 1693.33 1515.0 / 1515.0 Output Total 100 / 100 Balance 1593.33 / 1593.33 1515.0 / 1515.0 Lab / Micro Data 02/28/23 05:45 02/28/23 05:45 Labs: Laboratory Results - last 24 hr 02/27/23 14:05: WBC 16.0 H, RBC 5.05, Hgb 15.8, Hct 47.4, MCV 93.9, MCH 31.3, MCHC 33.3, RDW Std Deviation 50.9 H, RDW Coeff of Anastacia 14.7 H, Plt Count 152, MPV 10.2, Immature Gran % (Auto) 0.300, Neut % (Auto) 67.0, Lymph % (Auto) 28.3, [place] % (Auto) 3.7, Eos % (Auto) 0.3, Baso % (Auto) 0.4, Absolute Neuts (auto) 10.7 H, Absolute Lymphs (auto) 4.52 H, Nucleated RBC % 0, ESR 8, Sodium 140, Potassium 3.9, Chloride 111 H, Carbon Dioxide 26.0, Anion Gap 3 L, BUN 18, Creatinine 1.20, Estim Creat Clear Calc 65.56, Est GFR (MDRD) Af Amer 78, Est GFR (MDRD) Non-Af 64, BUN/Creatinine Ratio 15.0, Glucose 110 H, Calcium 8.9, Total Bilirubin 0.60, AST 12 L, ALT 30, Alkaline Phosphatase 74, C-React Prot Ext Range 9.96 H, Total Protein 8.0, Albumin 3.6, Globulin 4.4 H, Albumin/Globulin Ratio 0.8 L, Lipase 39 02/27/23 14:20: Lactic Acid 1.2 02/27/23 15:47: Urine Color Yellow, Urine Clarity Clear, Urine pH 5.0, Ur Specific [place] 1.020, Urine Protein 15 H, Urine Glucose (UA) Normal, Urine Ketones 50 H, Urine Occult Blood 50 H, Urine Nitrite Negative, Urine Bilirubin Negative, Urine Urobilinogen Normal, Ur Leukocyte Esterase Negative, Urine RBC 0-5 SEEN, Urine WBC 0 SEEN, Ur Squamous Epith Cells 0-5 SEEN, Urine Bacteria 0 SEEN, Urine Mucus RARE 02/28/23 05:45: WBC 12.9 H, RBC 4.41 L, Hgb 13.9, Hct 42.6, MCV 96.6 H, MCH 31.5, MCHC 32.6, RDW Std Deviation 53.1 H, RDW Coeff of Anastacia 14.9 H, Plt Count 145 L, MPV 10.4, Immature Gran % (Auto) 0.300, Neut % (Auto) 62.8, Lymph % (Auto) 22.2, [place] % (Auto) 13.7 H, Eos % (Auto) 0.1, Baso % (Auto) 0.9, Absolute Neuts (auto) 8.1 H, Absolute Lymphs (auto) 2.86, Nucleated RBC % 0, Sodium 140, Potassium 3.7, Chloride 114 H, Carbon Dioxide 20.0 L, Anion Gap 6, BUN 15, Creatinine 1.16, Estim Creat Clear Calc 67.83, Est GFR (MDRD) Af Amer 81, Est GFR (MDRD) Non-Af 67, BUN/Creatinine Ratio 12.9, Glucose 119 H, Calcium 7.9 L Radiography Diagnostic Testing: Radiology Impression Abdomen/Pelvis CT 02/27/23 14:29 IMPRESSION: Colitis. Heterogeneous enlargement of the prostate. Electronically Signed: Gino Bo MD at 15:52 EDT , Physical Exam Narrative GENERAL: cooperative HEENT: Atraumatic; normocephalic EYES; Anicteric, Normal Conjunctiva NECK; supple, normal thyroid, RESPIRATORY: Diminished to auscultation CARDIOVASCULAR: Regular S1 S2, GI: soft, normoactive bowel sounds, : No Renal angle tenderness; EXTREMITIES: No edema, no clubbing, MUSCULOSKELETAL: no muscle wasting NEURO: Awake; no lateralizing signs. SKIN: No Rash PSYCH; Flat affect Assessment & Plan Assessment/Plan (1) Diarrhea: QUALIFIERS: Diarrhea type: infectious Qualified Code(s): A09 - Infectious gastroenteritis and colitis, unspecified PLAN: Plan Patient is a 67-year-old gentleman with history of recurrent C. 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 Recurrent C. difficile colitis ? Patient is a 67-year-old male with history of 4 previous episodes of C. difficile in the past with last one being in 2019 who presented with abdominal discomfort with associated diarrhea. Diagnosed with C. difficile colitis. [facility] failing outpatient treatment. Patient was started on p.o. vancomycin as well as Flagyl with consultation placed to GI 2. Dehydration ? Managed with IV fluid with subsequent monitoring of electrolytes ordered 3. Chronic lymphocytic leukemia ? Stable 4. BPH ? Patient is on terazosin 5. Anxiety disorder ? Patient is on Xanax 6. DVT prophylaxis ? SC Lovenox Time spent in the patient's overall evaluation,decision-making process, review of diagnostic data, adjustment of management, discussion with other providers, nursing nursing and ancillary staff involved in patient's care documentation, 40 Minutes Charges/Coding Visit Charges Inpatient E&M: 98440 Subs Hosp L2
[2023-02-28 08:28] LABS: Differential Comment SCANNED
[2023-02-28 10:00] VITALS: BP 98/48; PULSE 70; RESP 16; TEMP 37; O2SAT 96
--- NOTE | 2023-02-28 10:05 | CASEMGMT ---
JHONY BIGGS Assessment: Face to Face with pt for initial transition planning/care coordination assessment. RN DIAN introduced self and role at [facility], pt voices understanding and consents to assessment. Pt is A&O x4 and answers all questions appropriately at this time. Pt lying in bed in no distress. Care providers, pharmacy, and demographics verified/updated. Admitting Dx: c difficile colitis PCP:Jess Specialists:Friend, GI; Leatha, uro Preferred Pharmacy: [facility] Insurance: [facility], [facility] Prescription Benefit: yes LNOK: Betzy Mahmood, Living Arrangements: Pt lives with in a two story home with 4 steps to enter. Pt reports he is I in ADL's and denies concerns at home. Transportation: Pt drives self and denies concerns with transportation. DME:crutches HHC/SNF: Pt denies hx of Pt states no concerns with going home at time of dc. Pt states no further concerns/needs. CM to follow. Advised pt to ask CM if any further question/concerns/needs arise, voices understanding. Pt Goal: Home Plan: Home
[2023-02-28 16:08] VITALS: BP 93/56; PULSE 74; RESP 16; TEMP 37.1; O2SAT 98
[2023-02-28] MEDS: Tamsulosin HCl 0.4 MG Capsule 0.8 MG PO (17:36)
[2023-02-28 21:00] VITALS: BP 106/64; PULSE 65; RESP 16; TEMP 36.8; O2SAT 98
[2023-03-01 03:00] VITALS: BP 127/68; PULSE 67; RESP 16; TEMP 37.1; O2SAT 98
[2023-03-01] MEDS: 0.9% Normal Saline (1000mL) 1,000 ML 175 ML IV ×4 (05:25→23:19)
[2023-03-01] MEDS: metroNIDAZOLE 500 MG/100 ML BAG 100 MG IV ×4 (05:25→23:19)
[2023-03-01] MEDS: Vancomycin 125 MG/5 ML Susp PO.SYRINGE 250 MG PO ×4 (05:27→23:20)
[2023-03-01] MEDS: HYDROmorphone 1 MG/ML Syringe IV ×2 (05:36→20:44)
[2023-03-01 06:48] LABS: Absolute Lymphocyte Count 3.62 X10^3/uL (0.83-4.51); Absolute Neutrophil Count 4.1 X10^3/uL (2.0-7.7); Basophil# 0.04 X10^3/uL; Basophil% 0.4 % (0-1); Eosinophil# 0.17 X10^3/uL; Eosinophils% 1.9 % (0-5); Hemoglobin 12.8 g/dL (13.0-16.5); Lymphocyte # 3.62 X10^3/ul (0.83-4.51); Lymphocyte % 39.7 % (19-41); Mean Corp Hgb Conc 32.8 g/dL (32-36); Mean Corpuscular Hgb 31.5 pg (27.0-32.0); Mean Corpuscular Volume 96.1 fL (80-94); Mean Platelet Vol. 10.2 fl (6.2-12.0); Monocyte# 1.14 X10^3/uL; Monocyte% 12.5 % (0-10); NRBC Flagged by Analyzer 0 % (0-5); Neutrophil # 4.09 X10^3/uL (2.7-7.7); Platelet Count 125 K/mm3 (150-450); RBC Distribution Width SD 53.6 fl (35.1-43.9); Red Blood Count 4.06 M/mm3 (4.6-6.2); White Blood Count 9.1 K/mm3 (4.4-11.0)
--- NOTE | 2023-03-01 06:54 | PCM.PN.HOSP ---
Reason for Visit Reason for Visit: Diagnoses Infectious gastroenteritis and colitis, unspecified (02/27/23) Diarrhea, unspecified (02/27/23) Subjective Subjective Patient seen still complains of having loose bowel movement Objective Data Objective Data Vital Signs: Vital Signs Temp Pulse Resp BP Pulse Ox O2 Del Method 98.8 F 67 16 127/68 H 98 Room Air 03/01/23 03:00 03/01/23 03:00 03/01/23 03:00 03/01/23 03:00 03/01/23 03:00 03/01/23 03:00 Oxygen Delivery Method Room Air Weight: 84.368 kg Body Mass Index (BMI) 25.2 Intake & Output: Intake and Output for Last 24 Hours 02/27/23 02/28/23 03/01/23 23:59 23:59 23:59 Intake Total 1693.33 / 1693.33 4800.83 / 4800.83 1500 / 1500 Output Total 100 / 100 650 / 650 Balance 1593.33 / 1593.33 4150.83 / 4150.83 1500 / 1500 Lab / Micro Data 03/01/23 06:05 03/01/23 06:05 Labs: Laboratory Results - last 24 hr 02/28/23 05:45: WBC 12.9 H, RBC 4.41 L, Hgb 13.9, Hct 42.6, MCV 96.6 H, MCH 31.5, MCHC 32.6, RDW Std Deviation 53.1 H, RDW Coeff of Anastacia 14.9 H, Plt Count 145 L, MPV 10.4, Immature Gran % (Auto) 0.300, Neut % (Auto) 62.8, Lymph % (Auto) 22.2, [place] % (Auto) 13.7 H, Eos % (Auto) 0.1, Baso % (Auto) 0.9, Absolute Neuts (auto) 8.1 H, Absolute Lymphs (auto) 2.86, Nucleated RBC % 0, Differential Comment SCANNED, Diff Path Review August, Sodium 140, Potassium 3.7, Chloride 114 H, Carbon Dioxide 20.0 L, Anion Gap 6, BUN 15, Creatinine 1.16, Estim Creat Clear Calc 67.83, Est GFR (MDRD) Af Amer 81, Est GFR (MDRD) Non-Af 67, BUN/Creatinine Ratio 12.9, Glucose 119 H, Calcium 7.9 L 03/01/23 06:05: WBC 9.1, RBC 4.06 L, Hgb 12.8 L, Hct 39.0 L, MCV 96.1 H, MCH 31.5, MCHC 32.8, RDW Std Deviation 53.6 H, RDW Coeff of Anastacia 15.0 H, Plt Count 125 L, MPV 10.2, Immature Gran % (Auto) 0.500, Neut % (Auto) 45.0 L, Lymph % (Auto) 39.7, [place] % (Auto) 12.5 H, Eos % (Auto) 1.9, Baso % (Auto) 0.4, Absolute Neuts (auto) 4.1, Absolute Lymphs (auto) 3.62, Nucleated RBC % 0 Physical Exam Narrative GENERAL: cooperative HEENT: Atraumatic; normocephalic EYES; Anicteric, Normal Conjunctiva NECK; supple, normal thyroid, RESPIRATORY: Diminished to auscultation CARDIOVASCULAR: Regular S1 S2, GI: soft, normoactive bowel sounds, : No Renal angle tenderness; EXTREMITIES: No edema, no clubbing, MUSCULOSKELETAL: no muscle wasting NEURO: Awake; no lateralizing signs. SKIN: No Rash PSYCH; Flat affect Assessment & Plan Assessment/Plan (1) Diarrhea: QUALIFIERS: Diarrhea type: infectious Qualified Code(s): A09 - Infectious gastroenteritis and colitis, unspecified PLAN: Plan Patient is a 67-year-old gentleman with history of recurrent C. 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 Recurrent C. difficile colitis ? Patient is a 67-year-old male with history of 4 previous episodes of C. difficile in the past with last one being in 2019 who presented with abdominal discomfort with associated diarrhea. Diagnosed with C. difficile colitis. Admitted to [facility] floor failing outpatient treatment. Patient was started on p.o. vancomycin as well as Flagyl with consultation placed to GI 2. Dehydration ? Managed with IV fluid with subsequent monitoring of electrolytes ordered 3. Chronic lymphocytic leukemia ? Stable 4. BPH ? Patient is on terazosin 5. Anxiety disorder ? Patient is on Xanax 6. DVT prophylaxis ? SC Lovenox Time spent in the patient's overall evaluation,decision-making process, review of diagnostic data, adjustment of management, discussion with other providers, nursing nursing and ancillary staff involved in patient's care documentation, 40 Minutes Charges/Coding Visit Charges Inpatient E&M: 27714 Subs Hosp L2
[2023-03-01 07:07] LABS: Anion Gap 5 (5-15); BUN 11 mg/dL (7-18); BUN/Creat Ratio 10.8 RATIO (10-20); Calcium,Total 7.8 mg/dL (8.5-10.1); Chloride 120 mmol/L (98-107); Creatinine, Serum 1.02 mg/dL (0.70-1.30); EST Glomerular Filtration Rate 77 mL/min (>60); Est Glom Filt Rate - Afr Amer 93 mL/min (>60); Estimated Creatinine Clearance 77.14 ml/min; Glucose 104 mg/dL (74-106); Phosphorus 1.5 mg/dL (2.5-4.9); Potassium 3.6 mmol/L (3.5-5.1); Sodium Level 144 mmol/L (136-145)
[2023-03-01 10:06] VITALS: BP 123/75; PULSE 61; RESP 16; TEMP 36.5; O2SAT 95
[2023-03-01] MEDS: Finasteride 5 MG Tablet PO (10:11)
[2023-03-01] MEDS: Tamsulosin HCl 0.4 MG Capsule 0.8 MG PO (17:47)
[2023-03-01 17:57] VITALS: BP 123/68; PULSE 52; RESP 18; TEMP 36.9; O2SAT 100
[2023-03-01] MEDS: 0.9% Normal Saline (250mL Bag) 250 ML 15 ML IV (17:59)
[2023-03-01 23:00] VITALS: BP 122/66; PULSE 64; RESP 18; TEMP 37; O2SAT 98
[2023-03-02] MEDS: HYDROmorphone 1 MG/ML Syringe IV ×3 (01:32→17:43)
[2023-03-02] MEDS: 0.9% Normal Saline (1000mL) 1,000 ML 175 ML IV ×4 (04:03→21:55)
[2023-03-02] MEDS: metroNIDAZOLE 500 MG/100 ML BAG 100 MG IV ×4 (05:27→23:23)
[2023-03-02] MEDS: Vancomycin 125 MG/5 ML Susp PO.SYRINGE 250 MG PO ×4 (05:27→23:23)
[2023-03-02 05:37] VITALS: BP 126/81; PULSE 50; RESP 16; TEMP 36.6; O2SAT 96
--- NOTE | 2023-03-02 07:23 | PN.HOSP_ITS ---
Reason for Visit Reason for Visit: Diagnoses Infectious gastroenteritis and colitis, unspecified (02/27/23) Diarrhea, unspecified (02/27/23) Subjective Subjective Seen complains of lower abdominal pain and cramps. Also admitted to beginning to have some formed stools. Per patient he did notice blood in the stool the day prior. Objective Data Objective Data Vital Signs: Vital Signs Temp Pulse Resp BP Pulse Ox O2 Del Method 97.8 F 50 L 16 126/81 H 96 Room Air 03/02/23 05:37 03/02/23 05:37 03/02/23 05:37 03/02/23 05:37 03/02/23 05:37 03/02/23 05:37 Oxygen Delivery Method Room Air Weight: 84.368 kg Body Mass Index (BMI) 25.2 Intake & Output: Intake and Output for Last 24 Hours 02/28/23 03/01/23 03/02/23 23:59 23:59 22:59 Intake Total 4800.83 / 4800.83 5568.33 / 5568.33 1200 / 1200 Output Total 650 / 650 Balance 4150.83 / 4150.83 5568.33 / 5568.33 1200 / 1200 Lab / Micro Data 03/01/23 06:05 03/01/23 06:05 Physical Exam Narrative GENERAL: cooperative HEENT: Atraumatic; normocephalic EYES; Anicteric, Normal Conjunctiva NECK; supple, normal thyroid, RESPIRATORY: Diminished to auscultation CARDIOVASCULAR: Regular S1 S2, GI: soft, normoactive bowel sounds, : No Renal angle tenderness; EXTREMITIES: No edema, no clubbing, MUSCULOSKELETAL: no muscle wasting NEURO: Awake; no lateralizing signs. SKIN: No Rash PSYCH; Flat affect Assessment & Plan Assessment/Plan (1) Diarrhea: QUALIFIERS: Diarrhea type: infectious Qualified Code(s): A09 - Infectious gastroenteritis and colitis, unspecified PLAN: Plan Patient is a 67-year-old gentleman with history of recurrent C. 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 Recurrent C. difficile colitis ? Patient is a 67-year-old male with history of 4 previous episodes of C. difficile in the past with last one being in 2019 who presented with abdominal discomfort with associated diarrhea. Diagnosed with C. difficile colitis. Admitted to [facility] floor failing outpatient treatment. Patient was started on p.o. vancomycin as well as Flagyl with consultation placed to GI ? 03/02/2023; Seen complains of lower abdominal pain and cramps. Also admitted to beginning to have some formed stools. Per patient he did notice blood in the stool the day prior.Per patient he was scheduled to receive bezlotoxumab for his recurrent C. difficile currently ordered 2. Dehydration ? Managed with IV fluid with subsequent monitoring of electrolytes ordered 3. Chronic lymphocytic leukemia ? Stable 4. BPH ? Patient is on terazosin 5. Anxiety disorder ? Patient is on Xanax 6. DVT prophylaxis ? SC Lovenox Time spent in the patient's overall evaluation,decision-making process, review of diagnostic data, adjustment of management, discussion with other providers, nursing nursing and ancillary staff involved in patient's care documentation, 40 Minutes Charges/Coding Visit Charges Inpatient E&M: 04379 Subs Hosp L2
[2023-03-02 08:30] LABS: Absolute Neutrophil Count 4.4 X10^3/uL (2.0-7.7); Basophil# 0.06 X10^3/uL; Basophil% 0.6 % (0-1); Eosinophil# 0.13 X10^3/uL; Eosinophils% 1.3 % (0-5); Hematocrit 40.8 % (40-54); Hemoglobin 13.4 g/dL (13.0-16.5); Lymphocyte % 44.7 % (19-41); Mean Corp Hgb Conc 32.8 g/dL (32-36); Mean Corpuscular Hgb 31.1 pg (27.0-32.0); Mean Corpuscular Volume 94.7 fL (80-94); Monocyte# 0.91 X10^3/uL; NRBC Flagged by Analyzer 0 % (0-5); Neutrophil # 4.42 X10^3/uL (2.7-7.7); Platelet Count 133 K/mm3 (150-450); RBC Distribution Width CV 14.7 % (11.6-14.6); RBC Distribution Width SD 51.8 fl (35.1-43.9); Red Blood Count 4.31 M/mm3 (4.6-6.2); White Blood Count 10.1 K/mm3 (4.4-11.0)
[2023-03-02] MEDS: Finasteride 5 MG Tablet PO (09:19)
[2023-03-02 09:21] LABS: Anion Gap 7 (5-15); BUN 7 mg/dL (7-18); BUN/Creat Ratio 7.5 RATIO (10-20); Calcium,Total 8.3 mg/dL (8.5-10.1); Chloride 117 mmol/L (98-107); Creatinine, Serum 0.93 mg/dL (0.70-1.30); EST Glomerular Filtration Rate 86 mL/min (>60); Est Glom Filt Rate - Afr Amer 104 mL/min (>60); Glucose 104 mg/dL (74-106); Potassium 3.4 mmol/L (3.5-5.1); Sodium Level 143 mmol/L (136-145)
[2023-03-02 09:22] VITALS: BP 135/81; PULSE 54; RESP 16; TEMP 36.6; O2SAT 97
[2023-03-02] MEDS: Potassium Chloride Oral Tablet 20 MEQ PO ×2 (10:59→17:46)
[2023-03-02] MEDS: 0.9% Normal Saline (250mL Bag) 250 ML 15 ML IV (12:10)
[2023-03-02 17:35] VITALS: BP 135/76; PULSE 48; RESP 16; TEMP 36.5; O2SAT 100
[2023-03-02] MEDS: Tamsulosin HCl 0.4 MG Capsule 0.8 MG PO (17:46)
[2023-03-02] MEDS: FIDAXOMICIN 200 MG TABLET PO (21:55)
[2023-03-02 23:00] VITALS: BP 124/83; PULSE 50; RESP 18; TEMP 36.9; O2SAT 98
[2023-03-02] MEDS: ALPRAZolam 0.5 MG Tablet PO (23:28)
[2023-03-03] MEDS: 0.9% Normal Saline (1000mL) 1,000 ML 175 ML IV ×2 (03:35→09:04)
[2023-03-03] MEDS: metroNIDAZOLE 500 MG/100 ML BAG 100 MG IV ×3 (05:32→17:09)
[2023-03-03] MEDS: Vancomycin 125 MG/5 ML Susp PO.SYRINGE 250 MG PO ×3 (05:32→17:10)
[2023-03-03] MEDS: 0.9% Normal Saline (250mL Bag) 250 ML 15 ML IV (05:32)
[2023-03-03 05:36] VITALS: BP 130/77; PULSE 41; RESP 16; O2SAT 96
[2023-03-03 06:47] LABS: Absolute Lymphocyte Count 5.07 X10^3/uL (0.83-4.51); Absolute Neutrophil Count 3.6 X10^3/uL (2.0-7.7); Basophil# 0.05 X10^3/uL; Basophil% 0.5 % (0-1); Eosinophil# 0.16 X10^3/uL; Eosinophils% 1.6 % (0-5); Hematocrit 39.5 % (40-54); Lymphocyte # 5.07 X10^3/ul (0.83-4.51); Lymphocyte % 51.8 % (19-41); Mean Corp Hgb Conc 32.9 g/dL (32-36); Mean Corpuscular Hgb 31.3 pg (27.0-32.0); Mean Corpuscular Volume 95.2 fL (80-94); Monocyte# 0.84 X10^3/uL; Monocyte% 8.6 % (0-10); NRBC Flagged by Analyzer 0 % (0-5); Neutrophil # 3.62 X10^3/uL (2.7-7.7); Neutrophil % 37.1 % (47-70); POSITIVE DIFFERENTIAL YES; Platelet Count 163 K/mm3 (150-450); RBC Distribution Width CV 14.6 % (11.6-14.6); Red Blood Count 4.15 M/mm3 (4.6-6.2); White Blood Count 9.8 K/mm3 (4.4-11.0)
[2023-03-03 07:03] LABS: Differential Indicated SCAN CRITERIA MET
[2023-03-03 07:20] LABS: Anion Gap 6 (5-15); BUN 6 mg/dL (7-18); BUN/Creat Ratio 6.1 RATIO (10-20); Calcium,Total 8.3 mg/dL (8.5-10.1); Chloride 114 mmol/L (98-107); Creatinine, Serum 0.98 mg/dL (0.70-1.30); EST Glomerular Filtration Rate 81 mL/min (>60); Est Glom Filt Rate - Afr Amer 98 mL/min (>60); Estimated Creatinine Clearance 80.28 ml/min; Glucose 95 mg/dL (74-106); Potassium 3.8 mmol/L (3.5-5.1); Sodium Level 143 mmol/L (136-145)
--- NOTE | 2023-03-03 07:32 | PCM.PN.HOSP ---
Reason for Visit Reason for Visit: Diagnoses Infectious gastroenteritis and colitis, unspecified (02/27/23) Diarrhea, unspecified (02/27/23) Subjective Subjective Patient slowly improving, willing to try advancing diet, stool slowly more formed. Patient anxious about discharge and potential for C. difficile recurrence in the future Objective Data Objective Data Vital Signs: Vital Signs Temp Pulse Resp BP Pulse Ox O2 Del Method 98.4 F 41 L 16 130/77 H 96 Room Air 03/02/23 23:00 03/03/23 05:36 03/03/23 05:36 03/03/23 05:36 03/03/23 05:36 03/03/23 05:36 Oxygen Delivery Method Room Air Weight: 84.368 kg Body Mass Index (BMI) 25.2 Intake & Output: Intake and Output for Last 24 Hours 03/02/23 03/02/23 03/03/23 00:59 23:59 23:59 Intake Total 2041.67 / 2041.67 Output Total Balance 2041.67 / 2041.67 Lab / Micro Data 03/03/23 05:45 03/03/23 05:45 Labs: Laboratory Results - last 24 hr 03/02/23 08:10: WBC 10.1, RBC 4.31 L, Hgb 13.4, Hct 40.8, MCV 94.7 H, MCH 31.1, MCHC 32.8, RDW Std Deviation 51.8 H, RDW Coeff of Anastacia 14.7 H, Plt Count 133 L, MPV 10.0, Immature Gran % (Auto) 0.400, Neut % (Auto) 44.0 L, Lymph % (Auto) 44.7 H, [place] % (Auto) 9.0, Eos % (Auto) 1.3, Baso % (Auto) 0.6, Absolute Neuts (auto) 4.4, Absolute Lymphs (auto) 4.50, Nucleated RBC % 0, Sodium 143, Potassium 3.4 L, Chloride 117 H, Carbon Dioxide 19.0 L, Anion Gap 7, BUN 7, Creatinine 0.93, Estim Creat Clear Calc 84.60, Est GFR (MDRD) Af Amer 104, Est GFR (MDRD) Non-Af 86, BUN/Creatinine Ratio 7.5 L, Glucose 104, Calcium 8.3 L 03/03/23 05:45: WBC 9.8, RBC 4.15 L, Hgb 13.0, Hct 39.5 L, MCV 95.2 H, MCH 31.3, MCHC 32.9, RDW Std Deviation 51.0 H, RDW Coeff of Anastacia 14.6, Plt Count 163, MPV 10.0, Immature Gran % (Auto) 0.400, Neut % (Auto) 37.1 L, Lymph % (Auto) 51.8 H, [place] % (Auto) 8.6, Eos % (Auto) 1.6, Baso % (Auto) 0.5, Absolute Neuts (auto) 3.6, Absolute Lymphs (auto) 5.07 H, Nucleated RBC % 0, Sodium 143, Potassium 3.8, Chloride 114 H, Carbon Dioxide 23.0, Anion Gap 6, BUN 6 L, Creatinine 0.98, Estim Creat Clear Calc 80.28, Est GFR (MDRD) Af Amer 98, Est GFR (MDRD) Non-Af 81, BUN/Creatinine Ratio 6.1 L, Glucose 95, Calcium 8.3 L Physical Exam Narrative General: Alert, oriented, no apparent distress HEENT: Atraumatic, normocephalic Eyes: Anicteric, normal conjunctiva, extraocular movements grossly intact Neck: Supple Respiratory: Clear to auscultation bilaterally, normal respiratory effort Cardiovascular: Regular rate and rhythm GI: Soft, no rebound, guarding, rigidity, nondistended Extremities: No edema Musculoskeletal: Moving all extremities Neuro: No overt focal neurological deficits Skin: No rashes appreciated Psych: Cooperative Assessment & Plan Assessment/Plan (1) Diarrhea: QUALIFIERS: Diarrhea type: infectious Qualified Code(s): A09 - Infectious gastroenteritis and colitis, unspecified PLAN: Plan Patient is a 67-year-old gentleman with history of recurrent C. 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 Recurrent C. difficile colitis ? Patient is a 67-year-old male with history of 4 previous episodes of C. difficile in the past with last one being in 2019 who presented with abdominal discomfort with associated diarrhea. Diagnosed with C. difficile colitis. Admitted to [facility] floor failing outpatient treatment. Patient was started on p.o. vancomycin as well as Flagyl with consultation placed to GI ? 03/02/2023; Seen complains of lower abdominal pain and cramps. Also admitted to beginning to have some formed stools. Per patient he did notice blood in the stool the day prior. Per patient he was scheduled to receive bezlotoxumab for his recurrent C. difficile currently ordered -03/03: Slowly improving, was on vancomycin and metronidazole, now that fidaxomicin has been received and started should be able to DC the vancomycin and metronidazole. Patient had not yet started the fidaxomicin on an outpatient basis prior to coming in, may be able to DC on this medication to finish course, will verify with his maintenance helper utility engineer prior to DC 2. Dehydration ? Managed with IV fluid with subsequent monitoring of electrolytes ordered -03/03: Has been maintained on fluids, presently on clear liquid diet?advancing to will DC maintenance fluids 3. Chronic lymphocytic leukemia ? Stable 4. BPH ? Patient is on terazosin 5. Anxiety disorder ? Patient is on Xanax 6. DVT prophylaxis ? SC Lovenox Time spent in the patient's overall evaluation,decision-making process, review of diagnostic data, adjustment of management, discussion with other providers, nursing nursing and ancillary staff involved in patient's care documentation, 35 Minutes Charges/Coding Visit Charges Inpatient E&M: 79136 Subs Hosp L2
[2023-03-03 08:19] LABS: Magnesium 1.6 mg/dL (1.6-2.6); Phosphorus 2.3 mg/dL (2.5-4.9)
[2023-03-03 08:44] LABS: Pathologist Review Reviewed
[2023-03-03] MEDS: HYDROmorphone 1 MG/ML Syringe IV (08:50)
[2023-03-03] MEDS: Finasteride 5 MG Tablet PO (08:50)
[2023-03-03] MEDS: Potassium Chloride Oral Tablet 20 MEQ PO ×2 (08:50→17:08)
[2023-03-03] MEDS: FIDAXOMICIN 200 MG TABLET PO ×2 (08:51→20:52)
[2023-03-03 08:57] VITALS: BP 134/75; PULSE 45; RESP 16; TEMP 36.1; O2SAT 99
[2023-03-03 09:09] LABS: Differential Comment SCANNED
[2023-03-03] MEDS: Ensure Clear 120 ML Liquid PO (11:31)
[2023-03-03 11:34] VITALS: BP 121/72; PULSE 51; RESP 16; TEMP 36.2; O2SAT 97
[2023-03-03 15:00] VITALS: BP 123/86; PULSE 61; RESP 16; TEMP 36.8; O2SAT 96
[2023-03-03] MEDS: TERAZOSIN HCL 10 MG 20 MG PO (17:09)
[2023-03-03] MEDS: 0.9% Saline Lock 10 ML Syringe IV (17:09)
[2023-03-03 21:00] VITALS: BP 134/86; PULSE 50; RESP 18; O2SAT 98
[2023-03-04 05:22] VITALS: BP 125/76; PULSE 44; RESP 16; TEMP 36.4; O2SAT 98
[2023-03-04 07:37] LABS: Absolute Lymphocyte Count 4.62 X10^3/uL (0.83-4.51); Absolute Neutrophil Count 5.8 X10^3/uL (2.0-7.7); Basophil# 0.06 X10^3/uL; Basophil% 0.5 % (0-1); Eosinophil# 0.16 X10^3/uL; Eosinophils% 1.4 % (0-5); Hematocrit 39.5 % (40-54); Hemoglobin 13.3 g/dL (13.0-16.5); Lymphocyte # 4.62 X10^3/ul (0.83-4.51); Lymphocyte % 40.3 % (19-41); Mean Corp Hgb Conc 33.7 g/dL (32-36); Mean Corpuscular Hgb 31.3 pg (27.0-32.0); Mean Corpuscular Volume 92.9 fL (80-94); Mean Platelet Vol. 10.3 fl (6.2-12.0); Monocyte# 0.74 X10^3/uL; Monocyte% 6.5 % (0-10); NRBC Flagged by Analyzer 0 % (0-5); Neutrophil # 5.82 X10^3/uL (2.7-7.7); Neutrophil % 50.8 % (47-70); Platelet Count 160 K/mm3 (150-450); RBC Distribution Width CV 14.5 % (11.6-14.6); RBC Distribution Width SD 49.1 fl (35.1-43.9); Red Blood Count 4.25 M/mm3 (4.6-6.2); White Blood Count 11.5 K/mm3 (4.4-11.0)
[2023-03-04 07:56] LABS: Anion Gap 7 (5-15); BUN 7 mg/dL (7-18); BUN/Creat Ratio 7.2 RATIO (10-20); Calcium,Total 8.3 mg/dL (8.5-10.1); Chloride 113 mmol/L (98-107); Creatinine, Serum 0.97 mg/dL (0.70-1.30); EST Glomerular Filtration Rate 81 mL/min (>60); Est Glom Filt Rate - Afr Amer 99 mL/min (>60); Estimated Creatinine Clearance 81.11 ml/min; Glucose 87 mg/dL (74-106); Potassium 3.5 mmol/L (3.5-5.1); Sodium Level 143 mmol/L (136-145)
[2023-03-04 08:17] VITALS: BP 139/78; PULSE 50; RESP 18; TEMP 36.6; O2SAT 98
[2023-03-04] MEDS: Finasteride 5 MG Tablet PO (08:20)
[2023-03-04] MEDS: Potassium Chloride Oral Tablet 20 MEQ PO (08:20)
[2023-03-04] MEDS: Ensure Clear 120 ML Liquid PO (08:20)
[2023-03-04] MEDS: FIDAXOMICIN 200 MG TABLET PO (08:21)
[2023-03-04] MEDS: Sodium Phosphate/Na Biphos 15 MMOL in 0.9% Normal Saline (250mL Bag) 250 ML 125 MMOL IV (08:21)
--- NOTE | 2023-03-04 10:26 | DCINST_ITS ---
Discharge Instructions Diet Discharge Diet: Light diet - advance as tolerated Follow Up Care Test Results: Test results from this visit will be discussed in further detail at your follow- up appointment, if applicable. Discharge Plan Admission Admit Date/Time: 02/27/23 17:19 Primary Reason for Your Visit: Recurrence of cdiff Attending Provider: Luma Camara Primary Care Provider: Merle Mercado Consulting Providers: Luma Camara; Poncho Ventura; Mayo Boston Instructions Patient Instructions: C diff, Clostridium Difficile Infection, C. Diff Prevent Infection, What Is C. Diff? Additional Instructions / Restrictions: DISCHARGE INSTRUCTIONS PLEASE READ *Please take this with you to your next doctors appointment* -You will finish out your course of fidaxomicin (Dificid) 200 mg twice daily. He will take 1 dose tonight followed by an additional 8 days -You will need to follow-up with Dr. Boston with GI in his office upon discharge. Please call his office to schedule your hospital follow-up appointment (ph. [phone]) -Please call your primary care provider's office upon discharge to schedule a hospital follow up within 1 week. -For any concerning signs or symptoms please call 911 or proceed to the nearest emergency department Discharge Orders/Prescriptions Prescriptions: Continued tadalafil 5 mg tablet 5 mg PO QHS Adult 50 Plus Probiotic 4 billion cell capsule 4,000 mmu cells PO BID Rx Instructions: administer with a meal fexofenadine [Maria Luz Allergy] 60 mg tablet 60 mg PO 1700 zinc gluconate-zinc picolinate 30 mg capsule 50 mg PO 1700 magnesium glycinate 100 mg magnesium capsule 500 mg PO 1700 alprazolam [Xanax] 0.5 mg tablet 0.5 mg PO DAILY PRN (Reason: anxiety) Qty: 20 0RF digestive enzymes Capsule 1 cap PO DAILY Rx Instructions: administer with food; swallow whole; do not crush/chew/dissolve/break/cut cholecalciferol (vitamin D3) [Vitamin D3] 25 mcg (1,000 unit) Tablet 25 mcg PO 1700 terazosin 10 mg capsule 20 mg PO 1700 Dificid 200 mg tablet 200 mg PO Q12H 10 Days Qty: 20 0RF Patient Comments: didnt start it yet, it was ordered but not started yet bezlotoxumab 25 mg/mL solution 890 mg .Route ONCE Qty: 40 0RF Patient Comments: has not started this med yet. it was ordered for today but got sick and came to ED Rx Instructions: onceInfuse 1 vial Zinplava via IV per protocol for weight of 89.09 kg. No additional orders ondansetron HCl 4 mg tablet 4 mg PO Q8H PRN (Reason: nausea and vomiting) Qty: 14 1RF Held dicyclomine 20 mg tablet 20 mg PO TID PRN (Reason: abdominal pain) Qty: 45 2RF Hold Instructions: Resume on 03/13/23. Referrals / Follow Up: Merle Mercado MD [Primary Care Provider] - Within 1 Week Mayo Boston DO [Med Staff - Active Staff] - ( -You will need to follow-up with Dr. Boston with GI in his office upon discharge. Please call his office to schedule your hospital follow-up appointment (ph. [phone])) Disposition Disposition (needs filled in before D/C Order can be placed): Home, Self Care
--- NOTE | 2023-03-04 10:29 | PCM.DC.SUM ---
Providers Date of Admission: 02/27/23 Date of Discharge: 03/04/23 Primary Care Physician: Dr. Merle Mercado MD Consultations 02/27/23 19:22 Consult: Gastroenterology Routine Consulting Provider: DarvinMayo Reason for Consult: C.diff colitis EMERGENT Consult: No MD Notified: Yes Date Notified: 02/27/23 Time Notified: 17:29 Method of Notification: Verbal Reason For Visit: C DIFFICILE COLITIS Diagnosis Discharge Diagnosis (1) Diarrhea: Status: Acute Code(s): R19.7 - Diarrhea, unspecified Qualifiers: Diarrhea type: infectious Qualified Code(s): A09 - Infectious gastroenteritis and colitis, unspecified Plan 1. Recurrent C. difficile colitis 2. Dehydration 3. Chronic lymphocytic leukemia 4. BPH 5. Anxiety disorder Medications at Discharge Home Medications fexofenadine 60 mg tablet (Maria Luz Allergy) 60 mg PO 1700 allergies 10/22/21 lactobacillus combination no.9 4 billion cell capsule (Adult 50 Plus Probiotic) 4,000 mmu cells PO BID intestinal health 10/22/21 magnesium glycinate 500 mg PO 1700 hormonal health 10/22/21 tadalafil 5 mg tablet 5 mg PO QHS ED 10/22/21 zinc gluconate-zinc picolinate 30 mg capsule 50 mg PO 1700 hormanal health 10/22/21 cholecalciferol (vitamin D3) 25 mcg (1,000 unit) tablet (Vitamin D3) 25 mcg PO 1700 supplement 12/21/21 alprazolam 0.5 mg tablet (Xanax) 0.5 mg PO DAILY PRN anxiety #20 tabs 08/26/22 digestive enzymes 1 cap PO DAILY supplement and for intestinal health 11/22/22 bezlotoxumab 25 mg/mL intravenous solution 890 mg (35.6 mL) .Route ONCE c Diff #40 mL 02/25/23 fidaxomicin 200 mg tablet (Dificid) 200 mg PO Q12H c diff 10 days #20 tabs 02/25/23 dicyclomine 20 mg tablet 20 mg PO TID PRN abdominal pain #45 tabs 02/27/23 ondansetron HCl 4 mg tablet 4 mg PO Q8H PRN nausea and vomiting #14 tabs 02/27/23 terazosin 10 mg capsule 20 mg PO 1700 BPH 11/02/23 Hospital Course Summary of Care Provided Minutes Spent on Discharge: 35 Hospital Course: 67-year-old male history of recurrent C. difficile infections most recently 2019, BPH, anxiety presented to [facility] 03/04/2023 due to abdominal pain and diarrhea caused by recurrence of C. difficile. Fidaxomicin ordered on an outpatient basis however patient had not yet been able to get medicine and given symptoms was sent to ED by his traffic operations engineer. He was started on vancomycin and metronidazole and once his fidaxomicin was available this was started and other meds d/c'd. Discussed with patient's GI physician, patient improved and was already started on the fidaxomicin so will be discharged on rest of fidaxomicin course and instructed to follow-up with GI. Questions answered for patient. Physical Exam Narrative General: Alert, oriented, no apparent distress HEENT: Atraumatic, normocephalic Eyes: extraocular movements grossly intact Neck: Supple Respiratory: normal respiratory effort Cardiovascular: no edema appreciated GI: nondistended, no rebound, guarding, rigidity Extremities: Moving all extremities Neuro: No overt focal neurological deficits Psych: Cooperative Weight / BMI Weight Weight: 84.368 kg Body Mass Index (BMI) 25.2 ABG / Lab / Microbiology Data 03/04/23 06:30 03/04/23 06:30 Laboratory: Laboratory Results - last 24 hr 03/04/23 06:30: WBC 11.5 H, RBC 4.25 L, Hgb 13.3, Hct 39.5 L, MCV 92.9, MCH 31.3, MCHC 33.7, RDW Std Deviation 49.1 H, RDW Coeff of Anastacia 14.5, Plt Count 160, MPV 10.3, Immature Gran % (Auto) 0.500, Neut % (Auto) 50.8, Lymph % (Auto) 40.3, [place] % (Auto) 6.5, Eos % (Auto) 1.4, Baso % (Auto) 0.5, Absolute Neuts (auto) 5.8, Absolute Lymphs (auto) 4.62 H, Nucleated RBC % 0, Sodium 143, Potassium 3.5, Chloride 113 H, Carbon Dioxide 23.0, Anion Gap 7, BUN 7, Creatinine 0.97, Estim Creat Clear Calc 81.11, Est GFR (MDRD) Af Amer 99, Est GFR (MDRD) Non-Af 81, BUN/Creatinine Ratio 7.2 L, Glucose 87, Calcium 8.3 L D/C Instructions Discharge Diet: Light diet - advance as tolerated Meaningful Use Info Meaningful Use Diagnoses (Choose all that apply): None applicable Discharge Plan Admission Admit Date/Time: 02/27/23 17:19 Primary Reason for Your Visit: Recurrence of cdiff Attending Provider: Luma Camara Primary Care Provider: Merle Mercado Consulting Providers: Luma Camara; Poncho Ventura; Mayo Boston Instructions Patient Instructions: C diff, Clostridium Difficile Infection, C. Diff Prevent Infection, What Is C. Diff? Additional Instructions / Restrictions: DISCHARGE INSTRUCTIONS PLEASE READ *Please take this with you to your next doctors appointment* -You will finish out your course of fidaxomicin (Dificid) 200 mg twice daily. He will take 1 dose tonight followed by an additional 8 days -You will need to follow-up with Dr. Boston with GI in his office upon discharge. Please call his office to schedule your hospital follow-up appointment (ph. [phone]) -Please call your primary care provider's office upon discharge to schedule a hospital follow up within 1 week. -For any concerning signs or symptoms please call 911 or proceed to the nearest emergency department Discharge Orders/Prescriptions Prescriptions: Continued tadalafil 5 mg tablet 5 mg PO QHS Adult 50 Plus Probiotic 4 billion cell capsule 4,000 mmu cells PO BID Rx Instructions: administer with a meal fexofenadine [Maria Luz Allergy] 60 mg tablet 60 mg PO 1700 zinc gluconate-zinc picolinate 30 mg capsule 50 mg PO 1700 magnesium glycinate 100 mg magnesium capsule 500 mg PO 1700 alprazolam [Xanax] 0.5 mg tablet 0.5 mg PO DAILY PRN (Reason: anxiety) Qty: 20 0RF digestive enzymes Capsule 1 cap PO DAILY Rx Instructions: administer with food; swallow whole; do not crush/chew/dissolve/break/cut cholecalciferol (vitamin D3) [Vitamin D3] 25 mcg (1,000 unit) Tablet 25 mcg PO 1700 terazosin 10 mg capsule 20 mg PO 1700 Dificid 200 mg tablet 200 mg PO Q12H 10 Days Qty: 20 0RF Patient Comments: didnt start it yet, it was ordered but not started yet bezlotoxumab 25 mg/mL solution 890 mg .Route ONCE Qty: 40 0RF Patient Comments: has not started this med yet. it was ordered for today but got sick and came to ED Rx Instructions: onceInfuse 1 vial Zinplava via IV per protocol for weight of 89.09 kg. No additional orders ondansetron HCl 4 mg tablet 4 mg PO Q8H PRN (Reason: nausea and vomiting) Qty: 14 1RF Held dicyclomine 20 mg tablet 20 mg PO TID PRN (Reason: abdominal pain) Qty: 45 2RF Hold Instructions: Resume on 03/13/23. Referrals / Follow Up: Merle Mercado MD [Primary Care Provider] - Within 1 Week Mayo Boston DO [Med Staff - Active Staff] - ( -You will need to follow-up with Dr. Boston with GI in his office upon discharge. Please call his office to schedule your hospital follow-up appointment (ph. [phone])) Disposition Disposition (needs filled in before D/C Order can be placed): Home, Self Care Charges/Coding Visit Charges Inpatient E&M: 43186 Disch Hosp >30min
--- NOTE | 2023-03-04 10:34 | PHA.DC.MR.R ---
Pharmacy [place] Med Reconciliation Pharmacy Service has performed discharge medication reconciliation for this patient. The patient's discharge medication list was reviewed for discrepancies and discrepancies were resolved. Medications at Discharge Home Medications fexofenadine 60 mg tablet (Maria Luz Allergy) 60 mg PO 1700 allergies 10/22/21 lactobacillus combination no.9 4 billion cell capsule (Adult 50 Plus Probiotic) 4,000 mmu cells PO BID intestinal health 10/22/21 magnesium glycinate 500 mg PO 1700 hormonal health 10/22/21 tadalafil 5 mg tablet 5 mg PO QHS ED 10/22/21 zinc gluconate-zinc picolinate 30 mg capsule 50 mg PO 1700 hormanal health 10/22/21 cholecalciferol (vitamin D3) 25 mcg (1,000 unit) tablet (Vitamin D3) 25 mcg PO 1700 supplement 12/21/21 alprazolam 0.5 mg tablet (Xanax) 0.5 mg PO DAILY PRN anxiety #20 tabs 08/26/22 digestive enzymes 1 cap PO DAILY supplement and for intestinal health 11/22/22 bezlotoxumab 25 mg/mL intravenous solution 890 mg (35.6 mL) .Route ONCE c Diff #40 mL 02/25/23 fidaxomicin 200 mg tablet (Dificid) 200 mg PO Q12H c diff 10 days #20 tabs 02/25/23 dicyclomine 20 mg tablet 20 mg PO TID PRN abdominal pain #45 tabs 02/27/23 ondansetron HCl 4 mg tablet 4 mg PO Q8H PRN nausea and vomiting #14 tabs 02/27/23 terazosin 10 mg capsule 20 mg PO 1700 BPH 02/27/23
--- NOTE | 2023-03-04 10:54 | CASEMGMT ---
JHONY CM into pt room, pt states he has the dificid which is here at the hospital. The rx has already been filled. Pt denies any homegoing needs. Spoke with hospitalist who states bezlotoxumab is a med given at GI office.
[2023-03-04] MEDS: Magnesium Sulfate 4gm/100mL 4 GM/100 ML IV.SOLN. IV (11:14)
[2023-03-04 15:10] VITALS: BP 129/76; PULSE 55; RESP 18; TEMP 36.3; O2SAT 97
== END 2023-03-04 15:37 | disposition home or self-care (01) | DRG 372 ==
LOC: ED 17:04 → MS3 17:57
PROVIDERS: Internal Medicine; Admitting Provider Internal Medicine; Emergency Provider Student in an Organized Health Care Education/Training Program; PCP Internal Medicine; Visit Provider Internal Medicine
DX: A04.71 Enterocolitis due to Clostridium difficile, recurrent (principal); C91.10 Chronic lymphocytic leukemia of B-cell type not having achieved remission; E78.5 Hyperlipidemia, unspecified; E86.0 Dehydration; F41.9 Anxiety disorder, unspecified; N40.0 Benign prostatic hyperplasia without lower urinary tract symptoms; Z80.0 Family history of malignant neoplasm of digestive organs
CPT/HCPCS: 36415; 74177; 80048; 80053; 81001; 82274; 82653; 82705; 83605; 83630; 83690; 83735; 83993; 84100; 85025; 85652; 86140; 87177; 87209; 87329; 87493; 97802; 99283; J7030; J7050; Q9967; A4216; J2405

== ENCOUNTER → 2023-03-22 | Outpatient (CLI) | payer MEDICARE, OTHER, SELFPAY | END | disposition home or self-care (01) | LOC: LABSPEC 09:59 | PROVIDERS: PCP Internal Medicine; Referring Provider Internal Medicine Gastroenterology; Visit Provider Internal Medicine Gastroenterology | DX: A04.72 Enterocolitis due to Clostridium difficile, not specified as recurrent (principal) | CPT/HCPCS: 87493 ==

== ENCOUNTER → 2023-05-23 | Outpatient (CLI) | payer MEDICARE, OTHER, SELFPAY ==
--- NOTE | 2023-05-23 08:38 | US_ITS ---
STUDY: ULTRASOUND BREAST - LEFT REASON FOR EXAM: Male, 68 years old. Palpable lump left breast. TECHNIQUE: Axial and longitudinal images of the LEFT breast were performed with a high resolution ultrasound transducer. # OF IMAGES: 42 COMPARISON: Comparison is made with prior mammogram done earlier today. FINDINGS: LEFT Breast: The palpable lump corresponds to a 6 mm x 6 mm x 5 mm hypoechoic heterogeneous nodule at the 2:00 position of the breast at one cm from the nipple. Biopsy recommended. US/Breast Limited Unilateral IMPRESSION: 6 mm x 6 mm x 5 mm hypoechoic heterogeneous nodule at the 2:00 position of the breast at 1 cm from the nipple. Biopsy recommended. ASSESSMENT CATEGORY: BIRADS Category 4: Suspicious - Biopsy Should Be Considered. A letter regarding these results will be sent to the patient by the facility within 30 days. Electronically Signed: Gino Bo MD at 14:11 EST ,
--- NOTE | 2023-05-23 08:38 | BI_ITS ---
MAMMOGRAPHY - BILATERAL DIAGNOSTIC REASON FOR EXAM: Male, 68 years old. Palpable left retroareolar lump. PERTINENT HISTORY: Non-contributory. TECHNIQUE: Digital bilateral breast melissa (3D mammographic acquisition) in the CC and MLO projections. 2-D mediolateral oblique (MLO) and craniocaudad (CC) views of both breasts were obtained. CAD: Full Field Digital Mammography with Computer Added Detection was performed. COMPARISON: None. Baseline examination. FINDINGS: Breast Composition: There are scattered areas of fibroglandular density. Small amount of the retroareolar glandular tissue laterally slightly more prominent on the left side. With the patient''s history of a palpable lump at that site, correlation with ultrasound is recommended. No other significant abnormalities are identified. BI/DIAG MAMM W/CAD, BILAT IMPRESSION: Findings suggestive of gynecomastia slightly more prominent on the left side although targeted sonogram of the left breast is recommended. ASSESSMENT CATEGORY: BIRADS Category 0: Incomplete. Need additional imaging evaluation. A letter regarding these results will be sent to the patient by the facility within 30 days. Approximately 10% of breast cancers are not detected by mammography. A normal mammogram should not delay biopsy of a clinically suspicious abnormality. Electronically Signed: Gino Bo MD at 11:00 EST ,
== END | disposition home or self-care (01) ==
LOC: OPBI 08:37
PROVIDERS: PCP Internal Medicine; Referring Provider Internal Medicine Medical Oncology; Visit Provider Internal Medicine Medical Oncology
DX: N63.42 Unspecified lump in left breast, subareolar (principal)
CPT/HCPCS: 76642; 77062; 77066; G0279

== ENCOUNTER 2023-06-04 05:59 | Day surgery (SDC) | payer MEDICARE, OTHER, SELFPAY ==
[2023-06-04] VITALS (7 sets, daily range): BP systolic 118–152; BP diastolic 79–90; PULSE 56–74; RESP 16–18; TEMP 37.1–37.6; O2SAT 93–98; BMI 27.8
--- NOTE | 2023-06-04 | IMM_PTH ---
PATHOLOGY RESULTS PATIENT: DULCE DODSON LOC: [facility] U#:[id number] AGE/SX: 68/M ROOM: RE06/04/[address]: Dr. Richardson Anderson MD : 1955 BED: DIS: 06/04/2023 SPEC #: [id number] RECD: 06/06/23 12:54 STATUS: CAIO REQ #: [id number] NADINE: 06/04/23 00:[address]: Richardson Anderson DEPT: IMMUNOHISTOCHEMISTRY RECD BY: Ruth Adamson ENTERED: 06/06/23 12:55 SP TYPE: IMMUNO OTHR DR: Dr. Alisson Oscar MD Tissues: Left breast, NOS Procedures: CALPONIN-1 (add) CK5-6 (add) CK8 (add) E-CAD (add) HER2 ASHTYN (add) KI-67 (add) P53 (add) FL (add) P40 (add) MOC-31 (add) ER (initial) PHYSICIAN & [address] [address] SPECIMEN INFORMATION: Tissue Source: Left breast Clinical Info: Left breast mass Specimen Number: [id number] #3 CPT code: 39454, 74391 x7, 34495 x3 METHODOLOGY: Deparaffinized sections of prefer/formalin-fixed tissue or PAP/DQ stained slides are incubated with monoclonal/polyclonal antibodies/oligonucleotide probes. Localization is made via biotin free immunoperoxidase method. Appropriate controls are performed and reacted as expected. Results on target cell population are indicated in the following table: RESULTS: ANTIBODY / CLONE RESULT Block 3 P53 (DO-7) negative, null pattern Ki-67 (30-9) positive, 10% CK8 ([id number]) positive CK5-6 (D5 & 1684) negative Calponin-1 ([id number]) negative P40 (BC28) negative E-Cad (ECH-6) positive MOC-31 (4561) positive MORPHOMETRIC ANALYSIS ER (clone 6F11) 90%, strong intensity FL (clone 16/1E2) 50%, weak to moderate intensity Her-2Neu (clone CB11) 0-1+ The prognostic test for HER2 is performed on formalin-fixed paraffin embedded tissue. A 3+ (positive) staining pattern is defined as intense, homogeneous, complete, circumferential membranous staining in >10% of contiguous tumor cells. A similar weak (2+) staining pattern is interpreted as equivocal. MAMIE follow-up testing is recommended for all equivocal cases. Positivity/negativity for ER/FL is reported if > or < 1% of the tumor cells are immuno- reactive, respectively. The ASCO/CAP criteria is used for scoring. Reference: Journal of Clinical Oncology, 2013; 31:2364-7868 & 2010; 16:7975-4722. Ischemic time: Less than one hour. Duration of fixation: 38 Hrs; Sample Adequate: Yes. These assays have not been validated on decalcified tissues. Results should be interpreted with caution given the likelihood of false negativity on decalcified specimens or fixation greater than 72 hours. Alternative testing methods (FISH/dualISH for Her2; gene expression for ER) are recommended, if applicable. Please notify the laboratory if additional testing is required. These tests were developed and their performance characteristics determined by [facility]. They may not have been cleared or approved by the U.S. Food and Drug Administration. The FDA has determined that such clearance or approval is not necessary. The above immunohistochemical/dualISH markers are ordered and reviewed by the Pathologist. INTERPRETATION: Left breast mass, excision: Invasive ductal carcinoma, nuclear grade 1. Positive for estrogen receptors (favorable prognostic indicator). Positive for progesterone receptors (favorable prognostic indicator). Negative for overexpression of TNO2kti. AM:ivelisse 06/09/2023
--- NOTE | 2023-06-04 | BRBX_PTH ---
PATHOLOGY RESULTS PATIENT: DULCE DODSON [place] [facility] [place][id number] AGE/SX: 68/M ROOM: RE06/04/[address]: Dr. Richardson Anderson MD : 1955 BED: DIS: 06/04/2023 SPEC #: [id number] RECD: 06/04/23 12:52 STATUS: CAIO RELuis #: [id number] NADINE: 06/04/23 00:[address]: Richardson Anderson DEPT: SURGICAL PATHOLOGY RECD BY: Abraham Reynolds ENTERED: 06/04/23 12:52 SP TYPE: BREAST BX OTHR DR: Dr. Alisson Oscar MD Tissues: Left breast, NOS Procedures: Surgery Specimen Level IV HEADER OPERATION: Excision breast mass or biopsy PRE-OP DIAGNOSIS: Breast mass TISSUE SUBMITTED: Left breast mass MICROSCOPIC DIAGNOSIS Left breast mass, excision: Invasive ductal carcinoma. See synoptic report below. AM:ivelisse 06/06/2023 COMMENT INVASIVE BREAST CARCINOMA SUMMARY: Procedure: Excision without wire guidance Specimen type: Excisional biopsy Specimen size: 3.0 x 1.8 x 1.2 cm Specimen laterality: Left breast Tumor site: Left breast Tumor size: 7.0 x 6.5 x 6.0 mm Histologic type: Invasive ductal carcinoma Focality: Single focus of carcinoma Histologic Grade (Mary grade): Glandular/tubular differentiation score: 2 Nuclear pleomorphism score: 2 Mitotic count score: 1 Overall grade: Grade 1 (score of 5) Ductal carcinoma in situ (DCIS): Not present Lobular carcinoma in situ: Not identified Tumor extension: Skin: No skin present. Nipple: No nipple present. Skeletal muscle: No skeletal muscle present. Margins: Distance of carcinoma from closest margin: 1.0 mm from unidentified inked margin. Lymph nodes: No lymph nodes submitted. Treatment effect: Unknown Lymphvascular invasion: Not identified Additional pathologic findings: Gynecomastia. Ancillary studies: ([id number]) ER: positive, 90%, strong intensity DC: positive 50% weak to moderate intensity [id number]: negative 0-1+ Microcalcifications: Present Clinical history: Left breast mass. PATHOLOGIC STAGE: T1 Nx Mx The above summary is in compliance with [employer] [place] [employer] (CAP) Cancer Protocols Checklist and [place] Joint Committee on Cancer (AJCC), Staging Manual, 8th Ed. Case has been reviewed in consultation with Dr. Hernandez who concurs with the above diagnosis. IDC:SJ MICROSCOPIC DESCRIPTION Slides are reviewed. GROSS DESCRIPTION Received in fixative is one container labeled with the patient's name and designated left breast mass. The specimen consists of an unoriented piece of obrien-yellow fibroadipose tissue measuring 3.0 x 1.8 x 1.2 cm. The specimen is inked, serially sectioned and reveals yellow adipose cut surfaces with focal fibrous area. The entire specimen is submitted in three cassettes. / SJ:ivelisse 06/05/2023 TC:0 Ischemic Time: 1 minute Fixation Time: 38 hours CPT: 37300
[2023-06-04] MEDS: Lactated Ringers 1,000 ML 15 ML IV (06:33)
--- NOTE | 2023-06-04 07:00 | PCM.HP.BLA ---
History and Physical Date of Admission: 06/04/23 Intake Vital Signs 05/19/2407:33 05/27/2412:07 Height 6 ft 6 ft Weight: 205 lb 2 oz 205 lb BMI 27.8 27.8 BP 118/67 157/75 H Blood Pressure Location Rt brachial Rt brachial Position Sitting Sitting Respiration 18 16 Pulse 54 L Pulse Source Monitor Temp 98.4 F Oxygen Delivery Method room air Intake Visit Reasons: BREAST LUMP Chief Complaint: breast lump Customer Service Consultant Required: No Allergies clindamycin Allergy (Verified 05/27/23 13:07) c-diffdoxycycline Allergy (Verified 05/27/23 13:07) c-diffamoxicillin [From Augmentin] Adverse Reaction (Verified 05/27/23 13:07) Vomitingclavulanic acid [From Augmentin] Adverse Reaction (Verified 05/27/23 13:07) Vomiting Medications fexofenadine 60 mg tablet (Maria Luz Allergy) 60 mg PO 1700 allergies 10/22/21 [History Confirmed 05/27/23] lactobacillus combination no.9 4 billion cell capsule (Adult 50 Plus Probiotic) 4,000 mmu cells PO BID intestinal health 10/22/21 [History Confirmed 05/27/23] magnesium glycinate 500 mg PO 1700 hormonal health 10/22/21 [History Confirmed 05/27/23] tadalafil 5 mg tablet 5 mg PO QHS ED 10/22/21 [History Confirmed 05/27/23] zinc gluconate-zinc picolinate 30 mg capsule 50 mg PO 1700 hormanal health 10/22/21 [History Confirmed 05/27/23] cholecalciferol (vitamin D3) 25 mcg (1,000 unit) tablet (Vitamin D3) 25 mcg PO 1700 supplement 12/21/21 [History Confirmed 05/27/23] digestive enzymes 1 cap PO DAILY supplement and for intestinal health 11/22/22 [History Confirmed 05/27/23] bezlotoxumab 25 mg/mL intravenous solution 890 mg (35.6 mL) .Route ONCE c Diff #40 mL 02/25/23 [Rx Confirmed 05/27/23] dicyclomine 20 mg tablet 20 mg PO TID PRN abdominal pain #45 tabs 02/27/23 [Rx Confirmed 05/27/23] terazosin 10 mg capsule 20 mg PO 1700 BPH 02/27/23 [History Confirmed 05/27/23] alprazolam 0.5 mg tablet (Xanax) 0.5 mg PO DAILY PRN anxiety #10 tabs 03/11/23 [Rx Confirmed 05/27/23] finasteride 5 mg tablet mg PO 03/11/23 [History Confirmed 05/27/23] PFSH Medical History Anxiety Arthritis BPH (benign prostatic hyperplasia) C. 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 The patient reports he is having discomfort in the left breast. He says it is especially sensitive to light touch. He thinks this mass has been there for several months but it is growing. ROS General General: No weight change, appetite, fatigue, colon cancer, breast cancer or weakness HEENT HEENT: No difficulty swallowing, eye injury, eye surgery, swollen glands or hoarseness Endo Endocrine: No thyroid disease, diabetes mellitus, thyroid cancer, Hair loss, heat intolerance or cold intolerance Skin Skin: No rash or changing moles Breast Breast: No left breast lump, right breast lump, nipple discharge, breast pain, abnormal mammogram, abnormal US or breast enlargement Musc Musculoskeletal: No back problems, arthritis, rheumatoid arthritis, gout or joint pain Cardio Cardiovascular: No murmur, pacemaker, heart disease, atrial fibrillation, high blood pressure, heart attack, heart stent, palpitations, shortness of breat with exertion or chest pain Psych Psychiatric: No depression, anxiety or hearing voices Resp Respiratory: No shortness of breath, No sleep apnea, No cough, No COPD, No asthma, No emphysema and No wheezing Gastro Gastrointestinal: No abdominal pain, No nausea or vomiting, No diarrhea, No constipation, No blood in stool, No acid reflux, Yes hemorrhoids, No ulcers, No gallbladder problem and No black,tarry stools Marquis Hematologic: No blood thinners, Yes blood disorders, No bleeding, No anemia and No blood clots Neuro Neurologic: No system reviewed and no additional complaints, except as documented, No as per HPI, No abnormal gait, No abnormal hearing, No abnormal movements, No abnormal speech, No behavioral changes, No burning sensations, No confusion, No convulsions, No disequilibrium, No dizziness, No localized weakness, No frequent falls, No headache(s), No lack of coordination, No loss of vision, No memory loss, No numbness, No other visual disturbances, No radicular pain, No restless legs, No sensory deficit, No syncope, No tingling, No tremor(s), No weakness and No other Exam Const General: cooperative Orientation: alert and oriented x3 HENTN Head: normal to inspection Neck Neck: normal visual inspection and full ROM Chest Chest palpation & inspection: normal inspection of the chest Breast Palpation: Yes breast mass lrb: Left Resp Effort & Inspection: normal respiratory effort Auscultation: clear to auscultation bilaterally Cardio Rate: regular rate Rhythm: regular rhythm GI Inspection: non-distended Palpation: soft and nontender Skin General: no rashes or lesions noted Neuro General: patient alert and patient oriented x3 Extrem General: full ROM Psych Appearance: grossly normal Mental Status: mental status grossly normal Assessment and Plan Assessment and Plan (1) Breast mass in male: Status: Acute Comment: 5-10mm L breast medial retroaeolar nodule, Plan: Patient was sent here for a left breast mass. It is hurting him and causing discomfort. I discussed performing an excisional biopsy instead of needle biopsy as I believe this would be easy to excise and would relieve the pain and we would send the whole thing for pathology and I also believe that finding a needle into a small mass that is this close to the nipple would penetrate through and it would be hard to take a needle biopsy with the size of his subcutaneous tissue. I think would be easier to make an incision lateral to the nipple and remove the mass and send the whole thing for pathology. I discussed this with him in detail. I discussed the risks including but not limited to bleeding, infection, injury to underlying tissue. Patient understands the risks and is willing to proceed. Richardson Anderson MD Pager: [facility] [address] [place] [address], [address] [place] [address] Office: I have examined the patient and the H&P has been reviewed. There are no clinical changes since date of exam.
[2023-06-04] MEDS: Bupivacaine Mpf 0.5% 30 ML VIAL (07:38)
--- NOTE | 2023-06-04 08:10 | PCM.OPRPT ---
Report of Operation Date of Procedure: 06/04/23 Pre-Operative Diagnosis: Left breast mass Post-Operative Diagnosis: Same Surgery/Procedure Performed:: Left breast excisional biopsy Type of Anesthesia: Local MAC Estimated Blood Loss (mL): 2 Description of Procedure: Patient was brought to the operating room and MAC anesthesia was induced. The left chest was prepped and draped in sterile fashion. An incision was marked lateral to the nipple and then injected with local anesthetic. A small incision was made and the mass was circumferentially dissected using electrocautery and removed and sent for pathology. The cavity was inspected and irrigated and suctioned and there was good hemostasis. The incision was closed with interrupted 3-0 Vicryl sutures and then Dermabond was applied. Patient was brought to PACU in stable condition and tolerated the procedure well. Admit VTE Documentation VTE Mechan Device Prophylaxis: SCD's
--- NOTE | 2023-06-04 08:11 | DCINST_ITS ---
Discharge Instructions Diet Discharge Diet: Light diet - advance as tolerated Activity Discharge Activity: Return to Normal Activity and May Shower Lifting Restrictions: none Dressing / Incision Call your doctor if your incision/area has: Continuous Slow Oozing, Sudden Increased Bleeding, Increased Pain/ Swelling, Increased Redness, Foul Smelling Discharge and Swelling at the incision site Call your doctor if you observe: Fever of 101 or Higher Cleanse incision/area with: Soap & Water Follow Up Care Please Follow Up With: Richardson Anderson MD When: Please call to schedule 2 week follow up appointment. [phone] Test Results: Test results from this visit will be discussed in further detail at your follow- up appointment, if applicable. Discharge Plan Admission Attending Provider: Richardson Anderson Primary Care Provider: Alisson Oscar Instructions Additional Instructions / Restrictions: Alternate ibuprofen and Tylenol for pain, oxycodone for breakthrough pain Discharge Orders/Prescriptions Prescriptions: New oxycodone 5 mg Tablet 5 - 10 mg PO Q4H PRN PRN (Reason: Pain Score 4-10/10) 3 Days Qty: 10 0RF No Action tadalafil 5 mg tablet 5 mg PO QHS Adult 50 Plus Probiotic 4 billion cell capsule 4,000 mmu cells PO BID Rx Instructions: administer with a meal fexofenadine [Maria Luz Allergy] 60 mg tablet 180 mg PO 1700 zinc gluconate-zinc picolinate 30 mg capsule 50 mg PO 1700 magnesium glycinate 100 mg magnesium capsule 120 mg PO 1700 finasteride 5 mg tablet 5 mg PO DAILY Patient Comments: TAKE 1 TABLET BY MOUTH EVERY DAY alprazolam [Xanax] 0.5 mg tablet 0.5 mg PO DAILY PRN (Reason: anxiety) Qty: 10 0RF cholecalciferol (vitamin D3) [Vitamin D3] 25 mcg (1,000 unit) Tablet 125 mcg PO 1700 multivitamin Tablet 1 tab PO DAILY terazosin 10 mg capsule 20 mg PO 1700 Referrals / Follow Up: Alisson Oscar MD [Primary Care Provider] - Disposition Disposition (needs filled in before D/C Order can be placed): Home, Self Care
== END 2023-06-04 09:25 | disposition home or self-care (01) ==
LOC: SDC 05:59 → AC 06:11
PROVIDERS: PCP Internal Medicine; Referring Provider Surgery; Visit Provider Surgery
PROC: (CPT 19120; principal; 2023-06-04 07:15)
DX: C50.922 Malignant neoplasm of unspecified site of left male breast (principal); N63.0 Unspecified lump in unspecified breast; N40.0 Benign prostatic hyperplasia without lower urinary tract symptoms; K58.9 Irritable bowel syndrome, unspecified; K21.9 Gastro-esophageal reflux disease without esophagitis; Z85.6 Personal history of leukemia; N62 Hypertrophy of breast
CPT/HCPCS: 19120; 81002; 88305; 88341; 88342; J7120; J2405

== ENCOUNTER → 2023-07-02 | Outpatient (CLI) | payer MEDICARE, OTHER, SELFPAY ==
--- NOTE | 2023-07-02 08:19 | CT_ITS ---
INDICATION: STAGING MALE BREAST CA EXAMINATION: CT CHEST WITH CONTRAST - CT Chest W/ Contrast Injection TECHNIQUE: Helically acquired images were obtained of the chest following IV contrast. A radiation dose optimization technique was used for this scan. IV Contrast dosage and agent: 20 cc of Isovue-370 RADIATION DOSAGE (If Supplied By Facility): CTDIvol = ( 12.98 ) mGy, DLP = ( 503.71 ) mGycm COMPARISON: Prior study dated: 12/27/2021 FINDINGS: LUNGS, PLEURA AND LARGE AIRWAYS: Mild compressive atelectatic changes or scarring in the lower lungs unchanged. No evidence of pulmonary nodules. No focal infiltrate is seen. The trachea and mainstem bronchi are unremarkable. No pleural effusion or thickening. No pneumothorax. THYROID: No thyroid lesions. HEART AND PERICARDIUM: Heart size is normal. No pericardial effusion. No significant coronary calcifications. VESSELS: Tortuosity of the ascending thoracic aorta without evidence of aneurysm or dissection. No significant atherosclerotic calcifications. No obvious central pulmonary embolism although this study was not performed with the pulmonary embolism protocol. MEDIASTINUM AND LISSA: No mediastinal or hilar adenopathy. Esophagus is unremarkable. No hiatal hernia. UPPER ABDOMEN: Partially visualized left parapelvic cysts unchanged the prior exam. No acute process. The adrenal glands are unremarkable. Suboptimal evaluation of the liver due to arterial phase of scanning. BONES: Heterogeneous attenuations in several thoracic vertebrae and L3 likely due to hemangioma. Due to patient''s history of cancer, correlation with bone scan is recommended. CT/Chest WITH Contrast IMPRESSION: 1. No mass, adenopathy or focal acute pulmonary infiltrate. 2. No evidence of metastatic disease. 3. Probably benign-appearing hemangiomas in the thoracic vertebra and L3. Correlation with bone scan is recommended. Electronically Signed: Miguel Brennan MD at 10:59 EST ,
--- OUTSIDE RECORDS SUMMARY | 2023-07-02 08:39 | XMS RPT_ITS | CCD ---
Author Name Unknown Address [address] [place] [address] Organization [facility] Care Team Providers Care Obiee Report Developer Name Role Phone Chon Saeed MD Unavailable [phone] Selina Oscar MD Primary Care Provider [phone] Jo Godoy CGC Unavailable ZAC LOPEZ Referring Unavailable ZAC LOPEZ Attending Unavailable SELINA OSCAR Primary Care Unavailable JO GODOY Attending Unavailable CHON SAEED Referring Unavailmauri e SELINA OSCAR Primary Care Unavailable Problems Problem Classification Problem Date Documented Da te Episodic/Chronic Cancer of breast (1 source) Malignant neoplasm of male breast; Translations: [Malignant neoplasm of unspecified site of left male breast] 06-24-2023 Chronic Residual codes; unclassified (1 source) Family history of prostate cancer; Translations: [Family history of malignant neoplasm of prostate] 06-24-2023 Episodic Residual codes; unclassified (1 source) Family history of malignant melanoma; Translations: [Family history of malignant neoplasm of other organs or systems] 06-24-2023 Episodic Encounters Encounter Date Encounter Type Care Provider Facility Start: 06-24-2023 End: 06-24-2023 Subsequent hospital visit by physician Zac Lopez MD Work Phone: [facility] Plan of Treatment Date Care Activity Detail Author Start: 12-27-2022 COVID-19 (2022-05 4 season) COVID-19 ( season) [facility] Start: 1971 MenB (1 of 2 - MenB 2-Dose Series Bexsero) MenB (1 of 2 - MenB 2-Dose Series Bexsero) [facility] Start: 1968 Varicella (1 of 2 - 13+ 2-dose series) Varicella (1 of 2 - 13+ 2-dose series) [facility] Start: 1962 Tetanus Diphtheria a nd Pertussis Vaccines (1 - Tdap) Tetanus Diphtheria and Pertussis Vaccines (1 - Tdap) [facility] Start: 1956 MMR (1 of 1 - Standa rd series) MMR (1 of 1 - Standard series) [facility] End: 06-24-2023 Genetic Sendout: BRCAPlus test with CancerNext-Expanded [facility] Work Phone: Payers Date Payer Category Payer Medicare MEDICARE MEDICAR E PART A AND B [id number] 2023-Present [address] [place] [address] [id number] 1955 Unknown [id number] 1955 Unknown [id number] Medicare [id number] Social History Date Type Detail Facility Tobacco smoking stat [facility] Tobacco smoking consumption unknown [facility] Start: 1955 Sex assigned at Not on file [facility] Gender identity Not on file [facility] Evaluation note Note Date & Type Note Facility documented in this encounter [facility] Reason for Referral Specialty Diagnoses / Procedures Referred By Chely t Referred To Contact Lab Diagnoses Malignant neoplasm of left breast in male, estrogen receptor negative, unspecified site of breast Family history of prostate cancer Family history of melanoma Procedures Genetic Sendout: BRCAPlus test with CancerNext-Expanded [place] [address] Referral ID Status Reason Start Date Expiration Date V isits Requested Visits Authorized [id number] [facility] Required 06/24/2023 06/23/2024 1 1 Summary Purpose Family History No Family History Records Found Advance Directives No Advanced Directives Records Found Additional Source Comments Reason for Visit (unrecogniz ed section and content) Referral ID Status Reason Start Date Expiration Date V isits Requested Visits Authorized [id number] [facility] Specialty [facility] Required 06/24/2023 06/23/2024 1 1 Care Teams (unrecognized sec tion and content) (unrecognized sect ion and content) No Status Records Found INFORMATION SOURCE (unrecogn ized section and content) FOR RECORDS PERTAINING TO PATIENTS WHO ARE OR HAVE BEEN ENROLLED IN A CHEMICAL DEPENDENCY/SUBSTANCEABUSE PROGRAM, SOME INFORMATION MAY BE OMITTED. This clinical summary was aggregated from multiple sources. Caution should be exercised in using it in the provision of clinical care. This summary normalizes information from multiple sources, and as a consequence, information in this document may materially change the coding, format and clinical context of patient data. In addition, data may be omitted in some cases. CLINICAL DECISIONS SHOULD BE BASED ON THE PRIMARY CLINICAL RECORDS. [employer] provides no warranty or guarantee of the accuracy or completeness of information in this document.
[2023-07-02 08:44] LABS: CREATININE FINGERSTICK 1.2 mg/dL (0.70-1.30); EGFR FINGERSTICK > 60.0000 mL/min (>60)
== END | disposition home or self-care (01) ==
LOC: CT 08:13
PROVIDERS: PCP Internal Medicine; Referring Provider Internal Medicine Medical Oncology; Visit Provider Internal Medicine Medical Oncology
DX: C50.122 Malignant neoplasm of central portion of left male breast (principal); Z17.1 Estrogen receptor negative status [ER-]
CPT/HCPCS: 71260; Q9967

== ENCOUNTER 2023-07-09 07:26 | Day surgery (SDC) | payer MEDICARE, OTHER, SELFPAY ==
--- NOTE | 2023-06-30 08:32 | NURSING ---
PT INSTRUCTED TO MAKE DR SAEED'S OFFICE AWARE OF RECENT COVID INFECTION/ PT VERBALIZES UNDERSTANDING.
--- NOTE | 2023-07-02 08:09 | EKG12_ITS ---
Test Reason : PRE-OP Blood Pressure : / mmHG Vent. Rate : 064 BPM Atrial Rate : 064 BPM P-R Int : 190 ms QRS Dur : 084 ms QT Int : 388 ms P-R-T Axes : 056 045 038 degrees QTc Int : 400 ms Sinus rhythm with Premature atrial complexes in a pattern of bigeminy Otherwise normal ECG Confirmed by Brian Patterson ([id number]), fashion editor NEAL SOLORIO ([id number]) on 07/02/2023 1:37:46 PM Referred By: Richardson Anderson Confirmed By:Brian Patterson
[2023-07-04 11:03] LABS: Calcium,Total 9.8 mg/dL (8.5-10.1); Magnesium 2.1 mg/dL (1.6-2.6); Potassium 4.1 mmol/L (3.5-5.1)
[2023-07-09] VITALS (8 sets, daily range): BP systolic 101–118; BP diastolic 66–79; PULSE 58–86; RESP 16–18; TEMP 36.4–36.9; O2SAT 91–98; BMI 26.2
--- NOTE | 2023-07-09 | AXNB_PTH ---
PATIENT: DULCE [place]ODSON [place] [facility] [id number] AGE/SX: 68/M ROOM: RE07/09/[address]: Dr. Richardson Anderson MD : 1955 BED: DIS: 07/09/2023 SPEC #: [id number] RECD: 07/09/23 10:21 STATUS: CAIO RELuis #: [id number] NADINE: 07/09/23 00:[address]: Ricahrdson Anderson DEPT: SURGICAL PATHOLOGY RECD BY: Mir Regan ENTERED: 07/09/23 11:36 SP TYPE: AX NODE BX OTHR DR: MD Dr. Justino Sarabia MD Tissues: A - Axillary lymph node, NOS B - Axillary lymph node, NOS C - Left breast, NOS Procedures: Frozen Section (charge) Frozen Section Add'l ([facility]) Surgery Specimen Level V HEADER OPERATION: Total mastectomy with radio tracer and blue dye, with left PRE-OP DIAGNOSIS: Breast cancer in male TISSUE SUBMITTED: A. Left axillary sentinel lymph node frozen, B. Additional left sentinel lymph node, axilla frozen, C. Left breast long tag lateral short tag superior FROZEN SECTION DIAGNOSIS A. Left axillary sentinel lymph node biopsy; Two out of two lymph nodes, negative for metastatic carcinoma. B. Additional left sentinel lymph node, axilla, biopsy; One lymph node, negative for metastatic carcinoma. / 07/09/23 Case has been reviewed in consultation with Dr. Hernandez who concurs with the above diagnosis. IDC: MICROSCOPIC DIAGNOSIS A. Left axillary sentinel lymph node, biopsy; Two out of two lymph nodes, negative for metastatic carcinoma. See comment. B. Additional left sentinel lymph node, axilla, biopsy; One lymph node negative for metastatic carcinoma. See comment. C. Left breast, mastectomy; Negative for residual carcinoma. Changes consistent with previous biopsy site. Nipple, no pathologic diagnosis. / 07/14/2023 COMMENT A&B. The lymph nodes are negative for metastatic carcinoma on multiple H & E levels and immunohisto-chemical stains for cytokeratins ([id number]). Please make reference to previous specimen ([id number]), left breast mass, excision with diagnosis of invasive ductal carcinoma and also for cancer summary. New pathologic stage including previous specimen ([id number]) is pT1, pN0(sn), pMx. MICROSCOPIC DESCRIPTION Slides are reviewed. GROSS DESCRIPTION A. Received fresh for frozen section diagnosis labeled with the patient's name is a specimen designated Left axillary sentinel lymph node. The specimen consists of two pieces of adipose tissue measuring in aggregate 2.5 x 2.0x 1.0 cm. Two nodules consistent with lymph nodes are identified measuring 0.2 to1.5cm in greatest dimension. The entire specimen is submitted for frozen diagnosis as follows; 1- one lymph node 2- one bisected lymph node. / 07/09/23 B. Received fresh for frozen section diagnosis labeled with the patient's name is a specimen designated Additional left sentinel lymph node, axilla frozen. The specimen consists of adipose tissue measuring 2.5x 2.0x 0.5cm. One nodule consistent with lymph node as identified measuring 2cm in greatest dimension. The entire specimen is submitted for frozen diagnosis in two cassettes as one bisected lymph node. /mr 07/09/23 C. Received in fixative is one container labeled with the patient's name and designated Left breast. The specimen consists of mastectomy specimen consisting of breast tissue with overlying skin ellipse. Breast tissue measures 15.0 x 9.0 x 3.5cm and the skin ellipse measures 9.5x3.0cm. The nipple measures 0.2cm in greatest dimension. The skin surface shows blue-dye discoloration. No skin lesion is identified. The specimen is inked as follows: posterior - black, superior - blue, inferior - green, medial - orange and lateral - red. More dictation will follow after additional fixation. /mr 07/09/2023 Sections of breast tissue reveal a cavity in the central portion of the breast measuring 1.5x 1.5 x 1.0cm. This biopsy cavity is 1.5cm away from the closest posterior margin. No obvious mass identified. The rest of the specimen reveals borien-yellow adipose cut surfaces with scant fibrous areas. Copier Repair Technician sections are submitted in twelve cassettes as follows. 1- nipple, entirely submitted 2&3- Perpendicular margins and skin 4-6 - Biopsy cavity 7-12 Copier Repair Technician sections adjacent and away from the biopsy cavity. Sections are submitted after additional fixation. / 07/10/23 TC:5 CPT: 29709v5, 32551a6, 70251y1
--- NOTE | 2023-07-09 | IMM_PTH ---
PATIENT: DULCE DODSON LOC: [facility] – [place] U#:[id number] AGE/SX: 68/M ROOM: RE07/09/[address]: Dr. Richardson Anderson MD : 1955 BED: DIS: 07/09/2023 SPEC #: [id number] RECD: 07/14/23 14:11 STATUS: CAIO RELuis #: [id number] NADINE: 07/09/23 00:[address]: Richardson Anderson DEPT: IMMUNOHISTOCHEMISTRY RECD BY: Ruth Adamson ENTERED: 07/14/23 14:12 SP TYPE: IMMUNO OTHR DR: MD Dr. Justino Sarabia MD Tissues: A - Axillary lymph node, NOS B - Axillary lymph node, NOS Procedures: CK7 (add) Pankeratin (initial) PHYSICIAN & INSTITUTION [place] [id number] SPECIMEN INFORMATION: Tissue Source: A - Left axillary sentinel lymph nodes, B - Additional left sentinel lymph node Clinical Info: Breast cancer Specimen Number: [id number] A1, A2, B1, B2 CPT code: 92304 x2, 97455 x6 METHODOLOGY: Deparaffinized sections of prefer/formalin-fixed tissue or PAP/DQ stained slides are incubated with monoclonal/polyclonal antibodies/oligonucleotide probes. Localization is made via biotin free immunoperoxidase method. Appropriate controls are performed and reacted as expected. Results on target cell population are indicated in the following table: RESULTS: ANTIBODY / CLONE RESULT Block A1 AE1-3 (AE1/AE3/PCK26) negative CK7 (OV-TL12/30) negative Block A2 AE1-3 (AE1/AE3/PCK26) negative CK7 (OV-TL12/30) negative Block B1 AE1-3 (AE1/AE3/PCK26) negative CK7 (OV-TL12/30) negative Block B2 AE1-3 (AE1/AE3/PCK26) negative CK7 (OV-TL12/30) negative These tests were developed and their performance characteristics determined by [facility]. They may not have been cleared or approved by the U.S. Food and Drug Administration. The FDA has determined that such clearance or approval is not necessary. The above immunohistochemical/dualISH markers are ordered and reviewed by the Pathologist. INTERPRETATION: A. Left axillary sentinel lymph nodes, biopsy: Two out of two lymph nodes, negative for metastatic carcinoma. B. Additional left sentinel lymph node, biopsy: One lymph node, negative for metastatic carcinoma. SJ:ivelisse 07/15/2023
--- NOTE | 2023-07-09 08:03 | NM_ITS ---
PROCEDURE: NUCLEAR MEDICINE Injection [place] Node - LEFT breast(s). REASON FOR EXAM: Male, 68 years old. Left breast cancer. TECHNIQUE: [place] node localization using radionuclide methods of the LEFT breast(s) was performed following subcutaneous administration of 1.1 mCi of of sulfur colloid Tc-99m. COMPARISON STUDIES : NM - None. CR - Not available for review at this time. CT - Not available for review at this time. MR - Not available for review at this time. US - Not available for review at this time. FINDINGS: 1.1 mCi of technetium labeled sulfur colloid was injected subcutaneously in the periareolar region for sentinel node imaging. NM/Lymph Node Injection Only IMPRESSION: 1.1 mCi of technetium labeled sulfur colloid was injected subcutaneously in the periareolar region of the left breast for sentinel node imaging. Electronically Signed: Gino Bo MD at 8:43 EDT ,
[2023-07-09] MEDS: Lactated Ringers 1,000 ML 15 ML IV (08:09)
--- NOTE | 2023-07-09 09:08 | PCM.HP.BLA ---
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 Accompanied by: Is patient in pain?: No Allergies clindamycin Allergy (Verified 06/18/23 09:58) c-diffdoxycycline Allergy (Verified 06/18/23 09:58) c-diffamoxicillin [From Augmentin] Adverse Reaction (Verified 06/18/23 09:58) Vomitingclavulanic acid [From Augmentin] Adverse Reaction (Verified 06/18/23 09:58) Vomiting Medications fexofenadine 60 mg tablet (Maria Luz Allergy) 180 mg PO 1700 allergies 10/22/21 [History Confirmed 06/18/23] lactobacillus combination no.9 4 billion cell capsule (Adult 50 Plus Probiotic) 4,000 mmu cells PO BID intestinal health 10/22/21 [History Confirmed 06/18/23] magnesium glycinate 120 mg PO 1700 hormonal health 10/22/21 [History Confirmed 06/18/23] tadalafil 5 mg tablet 5 mg PO QHS ED 10/22/21 [History Confirmed 06/18/23] zinc gluconate-zinc picolinate 30 mg capsule 50 mg PO 1700 hormanal health 10/22/21 [History Confirmed 06/18/23] cholecalciferol (vitamin D3) 25 mcg (1,000 unit) tablet (Vitamin D3) 125 mcg PO 1700 supplement 12/21/21 [History Confirmed 06/18/23] terazosin 10 mg capsule 20 mg PO 1700 BPH 02/27/23 [History Confirmed 06/18/23] finasteride 5 mg tablet 5 mg PO DAILY 03/11/23 [History Confirmed 06/18/23] multivitamin 1 tab PO DAILY 05/29/23 [History Confirmed 06/18/23] oxycodone 5 mg tablet 5 - 10 mg (1 - 2 x 5 mg) PO Q6H PRN pain 5 days #10 tabs 06/04/23 [Rx Confirmed 06/18/23] alprazolam 0.5 mg tablet (Xanax) 0.5 mg PO DAILY PRN anxiety #10 tabs 06/16/23 [Rx Confirmed 06/18/23] PFSH Medical History Anxiety Arthritis BPH (benign prostatic hyperplasia) C. 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 Smoking Status: Never smoker Electronic Cigarette Use: not used alcohol intake: former year quit: 2018 substance use type: does not use what type of physical activity do you participate in: weight training frequency: daily do you feel safe at home: Yes HPI HPI HPI: Patient is a 68-year-old male found to have left breast cancer during excisional biopsy ROS General General: No weight change, appetite, fatigue, colon cancer, breast cancer or weakness HEENT HEENT: No difficulty swallowing, eye injury, eye surgery, swollen glands or hoarseness Endo Endocrine: No thyroid disease, diabetes mellitus, thyroid cancer, Hair loss, heat intolerance or cold intolerance Skin Skin: No rash or changing moles Breast Breast: No left breast lump, right breast lump, nipple discharge, breast pain, abnormal mammogram, abnormal US or breast enlargement Musc Musculoskeletal: No back problems, arthritis, rheumatoid arthritis, gout or joint pain Cardio Cardiovascular: No murmur, pacemaker, heart disease, atrial fibrillation, high blood pressure, heart attack, heart stent, palpitations, shortness of breat with exertion or chest pain Psych Psychiatric: No depression, anxiety or hearing voices Resp Respiratory: No shortness of breath, No sleep apnea, No cough, No COPD, No asthma, No emphysema and No wheezing Gastro Gastrointestinal: No abdominal pain, No nausea or vomiting, No diarrhea, No constipation, No blood in stool, No acid reflux, Yes hemorrhoids, No ulcers, No gallbladder problem and No black,tarry stools Marquis Hematologic: No blood thinners, Yes blood disorders, No bleeding, No anemia and No blood clots Neuro Neurologic: No system reviewed and no additional complaints, except as documented, No as per HPI, No abnormal gait, No abnormal hearing, No abnormal movements, No abnormal speech, No behavioral changes, No burning sensations, No confusion, No convulsions, No disequilibrium, No dizziness, No localized weakness, No frequent falls, No headache(s), No lack of coordination, No loss of vision, No memory loss, No numbness, No other visual disturbances, No radicular pain, No restless legs, No sensory deficit, No syncope, No tingling, No tremor(s), No weakness and No other Exam Const General: cooperative Orientation: alert and oriented x3 HENMT Head: normal to inspection Neck Neck: normal visual inspection and full ROM Chest Chest palpation & inspection: normal inspection of the chest Resp Effort & Inspection: normal respiratory effort Auscultation: clear to auscultation bilaterally Cardio Rate: regular rate Rhythm: regular rhythm GI Inspection: non-distended Palpation: soft and nontender Skin General: no rashes or lesions noted Neuro General: patient alert and patient oriented x3 Extrem General: full ROM Psych Appearance: grossly normal Mental Status: mental status grossly normal Assessment and Plan Assessment and Plan (1) Breast cancer in male: Status: Acute Qualifiers: Breast location: central portion of breast Estrogen receptor status: negative Laterality: left Qualified Code(s): C50.122 - Malignant neoplasm of central portion of left male breast; Z17.1 - Estrogen receptor negative status [ER-] Comment: S/P L lumpectomy, Invasive ductal carcinoma, tumor size 7mm, grade 1, pT1 Nx. ER/NV/Her2 negative. Discussed further management, mastectomy and axillary surgery is scheduled for 06/20/2023. Plan: The patient has left breast cancer. I discussed his current situation with him. As he is a male with breast cancer I would recommend having genetic testing before surgery. I will send him for genetic testing as long as at normal I will plan for left simple mastectomy and sentinel lymph node biopsy. This was discussed with him in detail. I also discussed the risks including but not limited to bleeding, infection, lymphedema, nerve injury, need for axillary dissection as the patient is triple negative. Patient understands all the risks and is when to proceed. If the genetic testing is positive we will reconsider performing a right prophylactic mastectomy. I will also check with oncology to see if they will require him to have a port. That may be done at the same time as well. Richardson Anderson MD Pager: [place] [phone] Office: I have examined the patient and the H&P has been reviewed. There are no clinical changes since date of exam. The pathology was reviewed and the patient was found to be ER positive and not triple negative. The decision was made not to do the other side as the genetic testing was negative. The plan is for left mastectomy and sentinel lymph node biopsy without port placement. Richardson Anderson MD Pager: [address], [address] [phone] Office:
[2023-07-09] MEDS: Cefotetan 2 GM in 0.9% NS 100 ML IV (09:36)
[2023-07-09] MEDS: Isosulfan Blue 1% 5 ML Vial (09:45)
[2023-07-09] MEDS: 0.9% Normal Saline (Pres. free 10 ML Vial (09:45)
[2023-07-09] MEDS: Bupivacaine 0.25% 30 ML Vial (10:33)
--- NOTE | 2023-07-09 10:43 | OP.PCM_ITS ---
Report of Operation Date of Procedure: 07/09/23 Pre-Operative Diagnosis: Left breast cancer Post-Operative Diagnosis: Left breast cancer retroareolar Surgery/Procedure Performed:: 1. Left simple mastectomy 2. Left sentinel axillary lymph node biopsy Type of Anesthesia: General/Regional Specimen's removed: Left breast and left sentinel lymph nodes Estimated Blood Loss (mL): 10 Description of Procedure: Patient was brought back to the operating room and general anesthesia was induced. The left axilla and breast were prepped and draped in usual sterile fashion. An elliptical incision was marked including the biopsy site and the nipple. It was then incised with a scalpel. Flaps were raised superiorly and inferiorly using electrocautery dissection. Once the flaps were raised on both sides the breast was taken off of the pectoral muscle including the pectoral fascia from medial to lateral fashion. Once the lateral breast was dissected free it was marked and sent for pathology. Next attention was paid to the left axilla through the same incision. Dissection was carried upward into the axilla and the neoprobe was used to find positive radioactive lymph nodes. All of the positive radioactive lymph nodes and blue lymph nodes were removed. No blue or radioactive lymph nodes remained. There were about 3 sentinel lymph nodes that lit up with the neoprobe. They were sent for pathology. The came back negative on frozen. The axilla and breast were both irrigated and suctioned dry and hemostasis was obtained using electrocautery. Next the skin incision was closed with interrupted 3-0 Vicryl sutures and a running 4-0 Monocryl suture. Steri- Strips were applied. Patient was awoken and taken to PACU in stable condition and tolerated the procedure well. Admit VTE Documentation VTE Mechan Device Prophylaxis: SCD's
--- NOTE | 2023-07-09 10:46 | DCINST_ITS ---
Discharge Instructions Procedure Breast Surgery Diet Discharge Diet: No restrictions Activity Discharge Activity: May Not Drive (for 2-3 days or while taking narcotic pain medications.) May shower in (days): 1 Lifting Restrictions: 15 lbs for 2 weeks Additional Activity Instructions:: Remove Eduard wrap and fluffy bandages to shower leave Steri-Strips in place. Change bandages daily and as needed for any drainage. Dressing / Incision Call your doctor if your incision/area has: Continuous Slow Oozing and Increased Redness Call your doctor if you observe: Fever of 101 or Higher Suture Line Care: Avoid Pulling/Pushing and Avoid Pinching/Bending Cleanse incision/area with: Soap & Water Additional Dressing/Incision Instructions:: Remove bulky dressing tomorrow. Follow Up Care Please Follow Up With: Richardson Anderson MD When: Please call to schedule 1 week follow up appointment. [phone] Test Results: Test results from this visit will be discussed in further detail at your follow- up appointment, if applicable. Discharge Plan Admission Attending Provider: Richardson Anderson Primary Care Provider: Alisson Oscar Consulting Providers: Justino Fagan Discharge Orders/Prescriptions Prescriptions: New acetaminophen 325 mg Tablet 650 mg PO Q4H PRN PRN (Reason: Pain Or Fever) Qty: 0 0RF oxycodone 5 mg Tablet 5 - 10 mg PO Q4H PRN PRN (Reason: Pain Score 4-10/10) 5 Days Qty: 20 0RF Continued tadalafil 5 mg tablet 5 mg PO QHS Adult 50 Plus Probiotic 4 billion cell capsule 4,000 mmu cells PO BID Rx Instructions: administer with a meal fexofenadine [Maria Luz Allergy] 60 mg tablet 180 mg PO 1700 zinc gluconate-zinc picolinate 30 mg capsule 50 mg PO 1700 magnesium glycinate 100 mg magnesium capsule 120 mg PO 1700 finasteride 5 mg tablet 5 mg PO DAILY Patient Comments: TAKE 1 TABLET BY MOUTH EVERY DAY cholecalciferol (vitamin D3) [Vitamin D3] 25 mcg (1,000 unit) Tablet 125 mcg PO 1700 multivitamin Tablet 1 tab PO DAILY oxycodone 5 mg tablet 5 - 10 mg PO Q6H PRN (Reason: pain) 5 Days Qty: 10 0RF terazosin 10 mg capsule 20 mg PO 1700 Bacillus coagulans-inulin [Probiotic with Prebiotic] PO DAILY alprazolam [Xanax] 0.5 mg tablet 0.5 mg PO DAILY PRN (Reason: anxiety) Qty: 10 0RF Referrals / Follow Up: Alisson Oscar MD [Primary Care Provider] - Disposition Disposition (needs filled in before D/C Order can be placed): Home, Self Care
[2023-07-09] MEDS: Ketorolac 15 MG/ML Vial IV (10:56)
[2023-07-09] MEDS: oxyCODONE 5 MG Tablet PO (12:54)
== END 2023-07-09 13:13 | disposition home or self-care (01) ==
LOC: SDC 07:28 → AC 07:28
PROVIDERS: Anesthesiology; PCP Internal Medicine; Referring Provider Surgery; Visit Provider Surgery
PROC: (CPT 19301; principal; 2023-07-09 09:45)
DX: C50.122 Malignant neoplasm of central portion of left male breast (principal); Z17.1 Estrogen receptor negative status [ER-]; Z85.6 Personal history of leukemia; Z86.16 Personal history of COVID-19
CPT/HCPCS: 19303; 38525; 00400; 36415; 38792; 82310; 83735; 84132; 88305; 88307; 88331; 88332; 88341; 88342; 93005; A4648; A9541; J7120; J2405; J3490; Q9968

== ENCOUNTER → 2023-11-03 | Outpatient (CLI) | payer MEDICARE, OTHER, SELFPAY ==
[2023-11-03 11:21] LABS: PSA,Total- Diagnostic 4.26 ng/mL (0.0-4.0)
== END | disposition home or self-care (01) ==
LOC: LAB 09:24
PROVIDERS: PCP Internal Medicine; Referring Provider Urology; Visit Provider Urology
DX: N40.1 Benign prostatic hyperplasia with lower urinary tract symptoms (principal)
CPT/HCPCS: 36415; 84153

== ENCOUNTER → 2024-08-18 | Outpatient (CLI) | payer MEDICARE, OTHER, SELFPAY ==
--- NOTE | 2024-08-18 12:24 | BI_ITS ---
EXAM: Unilateral mammogram. CLINICAL HISTORY: Personal history of breast cancer. Prior right mastectomy. COMPARISON: May 23, 2023. TECHNIQUE: 2D and 3D images of the right breast were obtained. FINDINGS: Small amount of fibroglandular tissue. No focal calcification or mass lesion is seen. BI/SCREEN MAMM (CAD) W/DEON UNI R IMPRESSION: Unremarkable examination. BI-RADS category 1. [facility]
[2024-08-18 13:05] LABS: Absolute Lymphocyte Count 7.95 X10^3/uL (0.83-4.51); Absolute Neutrophil Count 3.2 X10^3/uL (2.0-7.7); Basophil# 0.05 X10^3/uL; Basophil% 0.4 % (0-1); Differential Indicated SCAN CRITERIA MET; Eosinophil# 0.15 X10^3/uL; Eosinophils% 1.2 % (0-5); Hematocrit 42.2 % (40-54); Hemoglobin 14.4 g/dL (13.0-16.5); Lymphocyte # 7.95 X10^3/ul (0.83-4.51); Mean Corp Hgb Conc 34.1 g/dL (32-36); Mean Corpuscular Volume 93.8 fL (80-94); Mean Platelet Vol. 11.2 fl (6.2-12.0); Monocyte# 0.65 X10^3/uL; Monocyte% 5.4 % (0-10); NRBC Flagged by Analyzer 0 % (0-5); Neutrophil # 3.23 X10^3/uL (2.7-7.7); Neutrophil % 26.8 % (47-70); POSITIVE DIFFERENTIAL YES; Platelet Count 128 K/mm3 (150-450); RBC Distribution Width CV 14.5 % (11.6-14.6); RBC Distribution Width SD 49.8 fl (35.1-43.9); White Blood Count 12.1 K/mm3 (4.4-11.0)
[2024-08-18 13:32] LABS: ALB/GLOB Ratio 1.3 RATIO (0.9-2.4); AST(SGOT) 32 U/L (<=37); Alanine Aminotransfer ALT/SGPT 27 U/L (<=46); Albumin, Serum 4.2 g/dL (3.4-4.8); Alkaline Phosphatase 49 U/L (40-129); Anion Gap 10 (5-15); BUN 20 mg/dL (4-19); BUN/Creat Ratio 15.7 RATIO (10-20); Carbon Dioxide 22.1 mmol/L (21.0-32.0); Chloride 109 mmol/L (98-108); Creatinine, Serum 1.27 mg/dL (0.70-1.20); EST Glomerular Filtration Rate 61 (>60); Globulin 3.2 g/dL (2.2-4.2); Glucose 99 mg/dL (70-99); LDH 165 U/L (87-241); Potassium 4.2 mmol/L (3.3-5.1); Protein, Total 7.3 g/dL (5.9-8.4); Sodium Level 140 mmol/L (133-145); Total Bilirubin 0.61 mg/dL (0.00-1.30)
[2024-08-18 13:54] LABS: Platelet Estimate SLT DEC (ADEQ); Reactive Lymphocyte 1+
[2024-08-18 20:57] LABS: Xtra Tube EP Lab EXTRA TUBE
[2024-08-20 11:23] LABS: Pathologist Review Reviewed
== END | disposition home or self-care (01) ==
PROVIDERS: PCP Internal Medicine; Referring Provider Internal Medicine Medical Oncology; Visit Provider Internal Medicine Medical Oncology
DX: Z12.31 Encounter for screening mammogram for malignant neoplasm of breast (principal); Z85.3 Personal history of malignant neoplasm of breast; Z90.11 Acquired absence of right breast and nipple
CPT/HCPCS: 36415; 77063; 77067; 80053; 83615; 85025

== ENCOUNTER → 2024-10-20 | Outpatient (CLI) | payer MEDICARE, OTHER, SELFPAY ==
[2024-10-20 10:02] LABS: Anion Gap 11 (5-15); BUN 18 mg/dL (4-19); BUN/Creat Ratio 13.7 RATIO (10-20); Calcium,Total 9.1 mg/dL (7.6-11.0); Carbon Dioxide 21.4 mmol/L (21.0-32.0); Chloride 109 mmol/L (98-108); Cholesterol 185 mg/dL (<=200); Creatinine, Serum 1.28 mg/dL (0.70-1.20); EST Glomerular Filtration Rate 61 (>60); Glucose 96 mg/dL (70-99); High Density Lipoprotein 66 mg/dL; Low Density Lipoprotein Calc. 109 mg/dL; Potassium 4.4 mmol/L (3.3-5.1); Sodium Level 141 mmol/L (133-145); Triglycerides 53 mg/dL; Very Low Density Lipoprotein 11 mg/dL (5-40); cholesterol:hdl ratio screen 2.81
[2024-10-20 10:03] LABS: PSA,Total- Diagnostic 3.58 ng/mL (0.00-4.00)
[2024-10-24 16:08] LABS: Testosterone, % Free 2.03 % (1.50-4.20); Testosterone, Free 24.42 ng/dL (5.00-21.00); Testosterone, Total 1203 ng/dL (264-916)
== END | disposition home or self-care (01) ==
LOC: LAB 08:07
PROVIDERS: PCP Internal Medicine; Referring Provider Internal Medicine; Visit Provider Internal Medicine
DX: Z13.6 Encounter for screening for cardiovascular disorders (principal); N40.0 Benign prostatic hyperplasia without lower urinary tract symptoms; E34.9 Endocrine disorder, unspecified; K58.9 Irritable bowel syndrome, unspecified
CPT/HCPCS: 36415; 80048; 80061; 84153; 84402; 84403